=== PATIENT | male | born 1950 | race Caucasian/White ===

== ENCOUNTER 2025-10-26 15:46 | Inpatient (IN) | payer MEDICARE, SELFPAY ==
--- NOTE | ~2025-10-26 | XR_ITS ---
Examination: XR chest 1V portable Clinical History: Shortness of breath Comparison: 10/26/2025 Technique: Portable AP Findings: Heart size normal. Worsening scattered bilateral airspace disease. No acute bony abnormality. IMPRESSION: 1. Worsening scattered bilateral airspace disease, left lung worse. Reviewed, dictated and finalized at location R. TAKER
--- NOTE | ~2025-10-26 | CT_ITS ---
EXAMINATION: CT diagnostic chest wo con, 10/27/2025 14:00 PAPER BUNDLER HISTORY: ?pneumonia vs pulm edema COMPARISON: No comparisons available. TECHNIQUE: CT scan of the chest was performed without IV contrast. One or more of the following dose reduction techniques were used: automated exposure control, adjustment of the mA and/or kV according to patient size, use of iterative reconstruction technique. FINDINGS: No significant coronary calcification is present ([id number]) LUNGS: No tracheomalacia. No bronchiectasis. Large bilateral infiltrates. Micronodules in the upper lobes bilaterally in a tree-in-bud distribution with scattered infiltrates and areas of groundglass attenuation probably infectious. No significant emphysematous or pulmonary fibrotic changes. HEART AND PERICARDIUM: Within normal limits. AORTA: Normal caliber aorta. ADENOPATHY/MEDIASTINUM: None. LIMITED VIEWS OF THE ABDOMEN: Nonspecific patulous appearance of the esophagus with thickening of the esophagus may relate to underlying esophagitis. The visualized stomach appears distended. OSSEOUS STRUCTURES: No acute osseous abnormality.No suspicious lesions. OVERLYING SOFT TISSUES: Unremarkable. THYROID: The thyroid is unremarkable. IMPRESSION: Severe bilateral bronchopneumonia. Follow-up is recommended to assess resolution. Reviewed, dictated and finalized at location P. R BUNDLER IMPRESSION: Severe bilateral bronchopneumonia. Follow-up is recommended to assess resolutio n.
--- NOTE | ~2025-10-26 | XR_ITS ---
EXAM/PROCEDURE: XR barium swallow modified HISTORY: Aspiration Pneumonia COMPARISON: None available. TECHNIQUE: Modified barium swallow Fluoroscopy time: 3.2 minutes DAP: 2.05 Mcfadden per square centimeter IMPRESSION: Trace aspiration observed with thin barium. See speech therapist's note for complete evaluation. Reviewed, dictated and finalized at location A. HARNESS DESIGN ENGINEER IMPRESSION: Trace aspiration observed with thin barium. See speech therapist's note for com plete evaluation.
--- NOTE | ~2025-10-26 | US_ITS ---
EXAMINATION: US venous doppler [facility], 10/29/2025 11:53 CABLE SPLICER HISTORY: edema COMPARISON: None Technique: Mcfadden-scale and color Doppler images were attempted of the lower saphenofemoral junction, common femoral vein,superficial femoral vein, proximal deep femoral vein, proximal deep femoral vein, popliteal vein and posterior tibial veins. Findings: Deep Venous System:Normal flow, augmentation and compressibility. No echogenic thrombus identified. Superficial Venous SystemNo superficial thrombophlebitis. Soft tissues: Soft tissues are unremarkable. Impression: Negative for DVT. Reviewed, dictated and finalized at location P. E SPLICER Impression: Negative for DVT.
--- NOTE | ~2025-10-26 | XR_ITS ---
XR abdomen/kub 1V 11/09/2025 15:25 Indication: Constipation Procedure: KUB Comparison: No prior studies for comparison. Findings: There is a gastric tube present. There is a large amount of retained fecal material throughout the colon, consistent with fecal impaction. Generalized osteopenia. Moderate lumbar spondylosis with levoscoliosis. Impression: 1: Fecal impaction of the colon. Reviewed, dictated and finalized at location O. IRONER Impression: 1: Fecal impaction of the colon.
--- NOTE | ~2025-10-26 | XR_ITS ---
EXAM/PROCEDURE: XR barium swallow modified HISTORY: History dysphagia COMPARISON: None available. TECHNIQUE: Modified barium swallow Fossae time: 1.6 minutes DAP: 1.067 Mcfadden per square centimeter Number of images: 2 IMPRESSION: Aspiration observed. Significant residual persisted corresponding to area of the superior most portion of the esophagus. See speech therapist's note for complete evaluation. Reviewed, dictated and finalized at location A. RIBUTOR OF DIRECTORIES IMPRESSION: Aspiration observed. Significant residual persisted corresponding to area of th e superior most portion of the esophagus. See speech therapist's note for compl ete evaluation.
--- NOTE | ~2025-10-26 | CT_ITS ---
CTA CHEST CLINICAL HISTORY: COVID, R/O PE . COMPARISON: X-ray and CT 1 day prior TECHNIQUE: Helical CTA performed from thoracic inlet to upper abdomen IV contrast information not listed in PACS Coronal, sagittal reformats. Multiplanar MIPS CT images acquired with automatic exposure control for dose reduction DLP: 372 mGy-cm FINDINGS: Respiratory motion artifact. Pulmonary arteries: No PE identified. Thoracic Aorta: No dissection or aneurysm. Heart/pericardium: Coronary artery calcifications. RV/LV ratio: Normal. Lungs/Pleura: Severe dense bilateral lower lobe dependent airspace disease. Mild bilateral upper lobe airspace disease. Tracheobronchial tree: Patent. Nodes: No enlarged nodes. Bones: No acute bony abnormality. Soft tissues: Unremarkable. Visualized upper abdomen: Gastric distention. IMPRESSION: 1. No PE identified given respiratory motion artifact. 2. Large dense bilateral lower lobe airspace disease, consider aspiration. Reviewed, dictated and finalized at location R. GN TECHNICIAN
--- NOTE | ~2025-10-26 | XR_ITS ---
EXAMINATION: XR chest 2V DATE: 10/26/2025 16:45 INDICATION: Weakness. TECHNIQUE: Frontal and lateral views of the chest were obtained. COMPARISON: None. FINDINGS: Heart size is normal. Lungs are emphysematous. Questionable infiltrates of right lung base on the PA and lateral views. IMPRESSION: 1. Emphysematous lungs. 2. Suspect infiltrates at the right lung base, likely pneumonia. Please correlate with clinical and lab findings. Reviewed, dictated and finalized at location T. EGG PACKER IMPRESSION: 1. Emphysematous lungs. 2. Suspect infiltrates at the right lung base, likely pneumonia. Please correla te with clinical and lab findings.
--- NOTE | ~2025-10-26 | XR_ITS ---
EXAM/PROCEDURE: XR barium swallow modified HISTORY: Coughing with liquids COMPARISON: None available. TECHNIQUE: Modified barium swallow Fluoroscopy time: 3.2 minutes Number of images: 1 DAP: 2.058 Mcfadden per square centimeter IMPRESSION: No aspiration observed. See speech therapist's note for complete details. Reviewed, dictated and finalized at location A. ROOM SUPERVISOR
--- NOTE | ~2025-10-26 | XR_ITS ---
EXAM/PROCEDURE: XR fl Dobhoff insert/rad w img HISTORY: Failed modified barium swallow COMPARISON: None available. TECHNIQUE: Timeout performed in the usual sequences. Fluoroscopy time: 1.5 minutes DAP: 12.532 Mcfadden per square centimeter Number of images: 2 Procedure: Left nostril was used. The Dobbhoff catheter passed quickly through the nostril, and esophagus into the stomach. After several attempts, the catheter could not be extended into the duodenum and was left in the stomach with almost the entire catheter advanced. No immediate complication. IMPRESSION: Dobbhoff placement as above with no immediate complication. Reviewed, dictated and finalized at location A. BARREL LEADER
[2025-10-26 15:47] VITALS: BP 138/77; PULSE 99; RESP 22; TEMP 36.9; O2SAT 95
--- NOTE | 2025-10-26 15:58 | ECG_ITS ---
Test Date: 2025-10-26 16:54:18 Measurements Intervals [place] Rate: 91 P: 51 FL: 161 QRS: 19 QRSD: 97 T: 52 QT: 362 QTc: 446 Interpretive Statements SINUS RHYTHM POSSIBLE LEFT ATRIAL ENLARGEMENT INCOMPLETE RIGHT BUNDLE BRANCH BLOCK MINIMAL Q WAVES- HIGH LATERAL LEADS BASELINE ARTIFACT- I, III, AVR, AVL, AVF, V2 BORDERLINE ECG No previous ECG available for comparison Electronically Signed On 10-26-2025 18:56:57 BARGEMAN by Bharat Keys D.O.
[2025-10-26 16:30] LABS: Hematocrit 45.7 % (42.0-52.0); Hemoglobin 15.2 g/dL (14.0-18.0); Immature Granulocyte Percent A 0.6 % (0-0.5); Lymphocytes Absolute Auto 0.54 K/mm3 (0.9-3.2); Mean Corpuscular HGB Conc 33.3 g/dl (32-36); Mean Corpuscular Hemoglobin 33.5 pg (26-34); Mean Corpuscular Volume 100.7 fl (80-100); Nucleated Red Blood Cells Absolute Auto 0.000 K/mm3 (0.0-0.012); Nucleated Red Blood Cells Perc 0.0 % (0.0-0.2); Platelet Count Result 174 k/mm3 (150-375); Red Blood Count 4.54 M/mm3 (4.6-6.20); White Blood Count 10.4 K/mm3 (4.5-10.0)
[2025-10-26 17:07] LABS: Influenza A QL RT-PCR Negative (Negative); Influenza B QL RT-PCR Negative (Negative); RSV RNA, RT-PCR Negative (Negative); SARS-CoV-2 RNA PCR Positive (Negative)
[2025-10-26 17:17] VITALS: BP 107/63; PULSE 89; RESP 18; O2SAT 96
[2025-10-26 18:00] LABS: Add Urine Microscopic? YES; Appearance Urine Clear (Clear); Glucose Urine UA Negative (Negative); Leukocyte Esterase Ur Trace LEU/UL (Negative); Nitrate Urine Negative (Negative); Non Pathogenic Casts >20; Specific Grav Ur 1.024 (1.001-1.035)
[2025-10-26 18:26] VITALS: BP 106/64; PULSE 91; RESP 21; O2SAT 98
[2025-10-26 18:38] LABS: Alanine Aminotransferase 18 U/L (6-50); Albumin Level 4.4 g/dL (3.5-5.1); Alkaline Phosphatase 72 U/L (38-126); Anion Gap 9 mmol/L (4-12); Aspartate Amino Transferase 38 U/L (17-59); Bilirubin,Total 1.5 mg/dL (0.2-1.3); Blood Urea Nitrogen 51 mg/dL (9-20); Calcium 10.1 mg/dL (8.4-10.2); Carbon Dioxide 29 mmol/L (22-30); Chloride 100 mmol/L (98-107); Estimated CRCL calculation 42 ml/min; Estimated Glomerular Filt Rate 48; Glucose 121 mg/dL (65-110); Potassium 3.8 mmol/L (3.4-5.0); Sodium 138 mmol/L (137-145); Total Protein 8.0 g/dL (6.3-8.2)
[2025-10-26] MEDS: LACTATED RINGERS 1,000 ML 999 ML IV CONT (18:59)
[2025-10-26 19:01] VITALS: BP 110/61; PULSE 90; RESP 20; O2SAT 96
--- NOTE | 2025-10-26 20:46 | ED_ITS ---
HPI - General Adult General Chief complaint: Weakness Stated complaint: weakness Time Seen by Provider: 10/26/25 17:11 History of Present Illness HPI narrative: 75-year-old male presenting with concerns for new onset weakness since last night. Patient is accompanied by his who is the primary historian. Patient has a significant history of Parkinson's disease. Patient's states that the patient reported not feeling well last night and then he woke up and began vomiting early this morning. Denies diarrhea, abdominal pain, nausea presently, chest pain/shortness of breath, fevers/chills. Related Data Home Medications ?Medication ?Instructions ?Recorded ?Confirmed ?Last Taken ?Type atorvastatin 40 mg tablet mg 10/26/25 Unknown History carbidopa 25 mg-levodopa 100 mg tablet 10/26/25 Unkno wn History tablet carbidopa ER 25 mg-levodopa 100 mg tablet PO 10/26/25 Unknown History tablet,extended release metoprolol succinate 25 mg mg PO 10/26/25 Unknown His tory tablet,extended release 24 hr mirabegron 25 mg tablet,extended mg PO 10/26/25 Unkno wn History release 24 hr solifenacin 5 mg tablet mg PO 10/26/25 Unknown Hist ory Allergies Allergy/AdvReac Type Severity Reaction Status Date / Time shellfish derived Allergy Hives Verified 10/26/25 15:59 Review of Systems 2 Review of Systems: All systems reviewed & are unremarkable except as noted in HPI and below PMFSH Past Medical History Medical History HTN (hypertension) Urge incontinence Parkinson disease Exam 2 Narrative: GENERAL: No acute distress. Fatigued. HEAD: Normocephalic, atraumatic. EYES: PERRLA and EOMI. ENT: Nares clear, no rhinorrhea or epistaxis. Mucous membranes moist. Oropharynx without tonsillar hypertrophy exudate or other lesions. Bilateral TMs pearly engle non-bulging NECK: Supple. No adenopathy or masses. No carotid bruits or JVD CHEST: No respiratory distress. Mild lower right-sided crackles. HEART: Regular rate and rhythm. No murmur heard. Normal peripheral pulses. ABDOMEN: Soft, nontender, nondistended, normal active bowel sounds. EXTREMITIES: Normal range of motion. No edema. Slow movements. SKIN: Warm, dry, no rash. NEURO: No focal deficits. Alert and oriented x3. PSYCH: Flat affect. Course Vital Signs Vital signs: Vital Signs Temperature 98.4 F 10/26/25 15:47 Pulse Rate 99 10/26/25 15:47 Respiratory Rate 22 H 10/26/25 15:47 Blood Pressure 138/77 10/26/25 15:47 Pulse Oximetry 95 10/26/25 15:47 Oxygen Delivery Room Air 10/26/25 15:47 Temperature 99.6 F 10/27/25 00:10 Pulse Rate 82 10/27/25 00:10 Respiratory Rate 24 H 10/27/25 00:10 Blood Pressure 144/76 H 10/27/25 00:10 Pulse Oximetry 92 10/27/25 00:39 Oxygen Delivery Nasal Cannula 10/27/25 00:39 Oxygen Flow Rate 6 10/27/25 00:39 MDM MDM Narrative Medical decision making narrative: 75-year-old male presenting with concerns for new onset weakness since last night. Patient is accompanied by his who is the primary historian. Patient has a significant history of Parkinson's disease. Patient's states that the patient reported not feeling well last night and then he woke up and began vomiting early this morning. Denies diarrhea, abdominal pain, nausea presently, chest pain/shortness of breath, fevers/chills. Upon my initial assessment patient is sleeping and has stable vitals. Patient's states that at baseline he sleeps a lot of the day but he has not been able to do that today as he has been sick. Patient's states that at baseline he is able to get around somewhat on his own with a walker; however today he was not able to at all. Patient tested positive for COVID. Imaging demonstrates emphysematous lungs, suspect infiltrates at the right lung base, likely pneumonia. Recommends to correlate with clinical and lab findings. Exam does demonstrate right lower lung field crackles. CBC demonstrates very mild leukocytosis at 10.4. CMP and creatinine were elevated and GFR is decreased although I have no previous labs to compare to. His blood pressure was also somewhat soft. Administered 1L of fluids. Nursing staff attempted to ambulate the patient reporting that he was unable to do this as he was still too weak. Discussed with Dr. Henriquez with hospitalist patient presentation and workup. Agrees with admission at this time and recommends starting Remdesivir and dexamethasone. While awaiting transfer upstairs, patient began reporting intermittent nausea and also became febrile. Administered Tylenol and Zofran. Patient reported improvement in his nausea. Shortly prior to transfer upstairs, nursing staff had to suction vomit out of patient's oropharynx. Patient's oxygen dropped according to nursing to the high 80s. Patient was placed on 6L NC. I reevaluated the patient and heard clear lung sounds in all hill and the patient was not reporting respiratory concerns. Patient shortly went back above 95% and was transported upstairs. Differential Diagnosis Differential Diagnosis: Differential diagnosis for weakness being considered include electrolyte disturbances, anemia, infection, medication effect, TEACHING ASSISTANT disease, myopathies, endocrine dyscrasias, acute CT, hypoglycemia, rhabdomyolysis, sepsis, dehydration. Lab Data 10/26/25 16:21 10/26/25 18:00 Labs: Lab Results 10/26/25 10/26/25 10/26/25 Range/Units 16:21 17:30 18:00 WBC 10.4 H (4.5-10.0) K/mm3 RBC 4.54 L (4.6-6.20) M/mm3 Hgb 15.2 (14.0-18.0) g/dL Hct 45.7 (42.0-52.0) % MCV 100.7 H (80-100) fl MCH 33.5 (26-34) pg MCHC 33.3 (32-36) g/dl RDW 13.0 (11.5-14.5) % Plt Count 174 (150-375) k/mm3 MPV 10.5 H (7.4-10.4) fl Immature Gran % (Auto) 0.6 H (0-0.5) % Neut % (Auto) 89.2 H (45.5-73.1) % Lymph % (Auto) 5.2 L (18.3-44.2) % [place] % (Auto) 3.9 (2.6-8.5) % Eos % (Auto) 0.4 (0-4.4) % Baso % (Auto) 0.7 (0.2-1.2) % Lymph # (Auto) 0.54 L (0.9-3.2) K/mm3 [place] # (Auto) 0.4 (0.1-0.6) K/mm3 Eos # (Auto) 0.0 (0-0.3) K/mm3 Baso # (Auto) 0.1 (0.0-0.1) K/mm3 Abs Immat Gran (auto) 0.06 H (0.00-0.031) K/mm3 Absolute Neuts (auto) 9.3 H (1.3-6.7) K/mm3 Absolute Nucleated RBC 0.000 (0.0-0.012) K/mm3 Nucleated RBC % 0.0 (0.0-0.2) % Sodium 138 (137-145) mmol/L Potassium 3.8 (3.4-5.0) mmol/L Chloride 100 (98-107) mmol/L Carbon Dioxide 29 (22-30) mmol/L Anion Gap 9 (4-12) mmol/L BUN 51 H (9-20) mg/dL Creatinine 1.43 H (0.7-1.3) mg/dL Estim Creat Clear Calc 42 ml/min Estimated GFR 48 L (59 - ) Glucose 121 H (65-110) mg/dL Calcium 10.1 (8.4-10.2) mg/dL Total Bilirubin 1.5 H (0.2-1.3) mg/dL AST 38 (17-59) U/L ALT 18 (6-50) U/L Alkaline Phosphatase 72 (38-126) U/L Total Protein 8.0 (6.3-8.2) g/dL Albumin 4.4 (3.5-5.1) g/dL Urine Color Dark yellow (Yellow) Urine Appearance Clear (Clear) Urine pH 5.0 (5.0-9.0) Ur Specific [place] 1.024 (1.001-1.035) Urine Protein 1+ H (Negative) mg/dL Urine Glucose (UA) Negative (Negative) mg/dL Urine Ketones 1+ H (Negative) mg/dL Ur Blood (Man) Negative (Negative) Urine Nitrate Negative (Negative) Urine Bilirubin 1+ H (Negative) Urine Urobilinogen 1.0 (<2.0) mg/dL Leukocyte Esterase Rfl Trace H (Negative) VEE/UL Urine RBC 0-2 (0-2) /hpf Urine WBC 0-5 (0-3) /hpf Ur Squamous Epith Cells None seen (Few) /hpf Urine Bacteria None seen /hpf Urine Casts >20 Hyaline Casts Present (None) /lpf U Random Total Protein 15 mg/dL Ur Random Sodium 19 meq/L Ur Random Urea 602 MG/DL Urine Creatinine 322.4 mg/dL Protein/Creat Ratio 2 0.05 (0-0.20) mg/mg Influenza A (RT-PCR) Negative (Negative) Influenza B (RT-PCR) Negative (Negative) RSV (RT-PCR) Negative (Negative) SARS-CoV-2 RNA (RT-PCR) Positive A (Negative) Imaging Data Attestation: I personally reviewed and interpreted this imaging study as follows: Radiologist's impression: ITS Impressions Chest X-Ray 10/26/25 16:46 IMPRESSION: 1. Emphysematous lungs. 2. Suspect infiltrates at the right lung base, likely pneumonia. Please correlate with clinical and lab findings. ECG Data EKG #1: ECG completion date: 10/26/25 ECG completion time: 16:54 normal rate, sinus rhythm and no acute changes Discharge Plan Discharge Clinical Impression: COVID, Pneumonia, Weakness, Nausea & vomiting Parkinson disease Qualifiers: Dyskinesia presence: unspecified whether dyskinesia Fluctuating manifestations: unspecified whether manifestations fluctuate Qualified Code(s): G20.A1 - Parkinson's disease without dyskinesia, without mention of fluctuations Patient Disposition: Still a Patient Condition: Guarded Prognosis
[2025-10-26] MEDS: ONDANSETRON INJ 4 MG/2 ML VIAL IV PUSH (21:09)
[2025-10-26] MEDS: ACETAMINOPHEN 500 MG TABLET 1000 MG PO (21:20)
[2025-10-26 21:21] VITALS: BP 118/63; PULSE 90; RESP 21; TEMP 38.2; O2SAT 100
[2025-10-26] MEDS: dexAMETHasone SOD PHOS INJ 10 MG/ML 1 ML VIAL 6 MG IV PUSH (22:25)
[2025-10-26] MEDS: SODIUM CHLORIDE 0.9% IV 1,000 ML 999 ML IV CONT (22:25)
[2025-10-26] MEDS: REMDESIVIR 200 MG/NS 250 ML 200 MG/250 ML BAG 250 MG IVPB (22:28)
[2025-10-26 22:31] VITALS: BP 132/76; PULSE 88; RESP 21; TEMP 37.2
--- NOTE | 2025-10-26 23:00 | PM.IMHP2 ---
H&P: HPI History of Present Illness Date/Time: 10/26/25 23:00 Chief Complaint: Weakness Narrative: 75 y/o M with PMH of Parkinson's, urge incontinence, and hypertension presents here with generalized weakness. The patient presents here from home via EMS on 10/26 for further evaluation of generalized weakness. HPI obtained through patient report and patient's . They report the generalized weakness started yesterday on 10/25. Now accompanied by nausea, vomiting, malodorous urine, and general malaise. He denies abdominal pain, diarrhea, chest pain, shortness of breath, fever, chills. Per he has had a chronic cough for the past 2-3 weeks that is been intermittently productive. However he was cleared prior to cataract surgery last week. No previous history of CKD or renal dysfunction. Initial VS at presentation: 98.4? F, HR 99, R 22, 138/77, and 95% on RA. ED workup showed: WBC 10.4, hemoglobin 15.2, creatinine 1.43 and GFR 48, glucose 121, UA showed trace leuk esterase otherwise unremarkable for infection. Patient tested positive for COVID on 10/26. CXR showed emphysematous lungs, suspect infiltrate at the right lung base likely pneumonia. Review of Systems Review of Systems: All systems reviewed & are unremarkable except as noted in HPI and below PMFSH Past Medical History Medical History HTN (hypertension) Urge incontinence Parkinson disease Meds Home Medications and Allergies Home Medications ?Medication ?Instructions ?Recorded ?Confirmed ?Type atorvastatin 40 mg tablet mg 10/26/25 History carbidopa 25 mg-levodopa 100 mg tablet 10/26/25 History tablet carbidopa ER 25 mg-levodopa 100 mg tablet PO 10/26/25 History tablet,extended release metoprolol succinate 25 mg mg PO 10/26/25 History tablet,extended release 24 hr mirabegron 25 mg tablet,extended mg PO 10/26/25 History release 24 hr solifenacin 5 mg tablet mg PO 10/26/25 History Allergies Allergy/AdvReac Type Severity Reaction Status Date / Time shellfish derived Allergy Hives Verified 10/26/25 15:59 Vital Signs Vital Signs - 24 hr 10/26/25 15:47 10/26/25 17:17 10/26/25 18:26 Temperature 98.4 F Pulse Rate 99 89 91 Respiratory Rate 22 H 18 21 H Blood Pressure 138/77 107/63 106/64 Pulse Oximetry 95 96 98 Oxygen Delivery Room Air 10/26/25 19:01 10/26/25 21:21 10/26/25 22:31 Temperature 100.7 F H 99 F Pulse Rate 90 90 88 Respiratory Rate 20 21 H 21 H Blood Pressure 110/61 118/63 132/76 Pulse Oximetry 96 100 Oxygen Delivery Exam Const: General: comfortable and no acute distress Other: , male, elderly, ill-appearing HENMT: Face/Nose/Sinus: Normal nares present Mouth: Yes dry mucous membranes Eyes: General: appearance normal, both eyes and all related structures Sclera: sclerae normal Pupils: Equal, round and reactive pupils present EOM: EOMs intact bilaterally Resp: Effort & Inspection: normal respiratory effort Other: Bibasilar crackles, left worse than right. Cardio: Rate: regular rate Rhythm: regular rhythm Other: S1-S2 present without murmur, rub, ectopy GI: Other: Abdomen soft, nondistended, nontender. Normoactive bowel sounds in all quadrants. Skin: General skin exam: normal color and no rashes or lesions noted Wounds: no wounds Neuro: Other: Generalized weakness, A&O x4. Normal speech and sensation. EOM intact. Extrem: General: normal to inspection Psych: Mental Status: mental status grossly normal Other: Masklike affect. Good insight and judgment, pleasant. Results Labs Labs: Short CBC 10/26/25 Range/Units 16:21 WBC 10.4 H (4.5-10.0) K/mm3 Hgb 15.2 (14.0-18.0) g/dL Hct 45.7 (42.0-52.0) % Plt Count 174 (150-375) k/mm3 [facility] 10/26/25 18:00 Sodium 138 Potassium 3.8 Chloride 100 Carbon Dioxide 29 BUN 51 H Creatinine 1.43 H Glucose 121 H Calcium 10.1 Liver Function 10/26/25 Range/Units 18:00 Total Bilirubin 1.5 H (0.2-1.3) mg/dL AST 38 (17-59) U/L ALT 18 (6-50) U/L Alkaline Phosphatase 72 (38-126) U/L Albumin 4.4 (3.5-5.1) g/dL Urine 10/26/25 Range/Units 17:30 Urine Color Dark yellow (Yellow) Urine Appearance Clear (Clear) Urine pH 5.0 (5.0-9.0) Ur Specific [place] 1.024 (1.001-1.035) Urine Protein 1+ H (Negative) mg/dL Urine Glucose (UA) Negative (Negative) mg/dL Quality VTE Prophylaxis VTE prophylaxis: pharmacologic ordered Assessment and Plan Assessment and plan (1) COVID: Code(s): U07.1 - COVID-19 Status: Acute Assessment and Plan: - symptom onset: 10/25 - tested positive for COVID on: 10/26 - CXR: 1. Emphysematous lungs. 2. Suspect infiltrates at the right lung base, likely pneumonia. Please correlate with clinical and lab findings. - Remdesivir 200 mg IVPB x1 then 100 mg x4 for 5 total doses. - high risk due to Parkinson's and presence of infiltrates, started on dexamethasone. Patient now also borderline hypoxic at 90% on room air. Placed on supplemental O2. Wean as tolerated, however maintain O2 sat greater than 92%. - Lovenox SQ - supportive care: DuoNeb p.r.n., Tylenol p.r.n., Mucinex, Tessalon Perles, IV fluids - monitor VS/O2 - monitor daily labs - PT/OT evaluation for decreased mobility/Lyly generalized weakness (2) Pneumonia: Qualifiers: Pneumonia type: due to COVID-19 virus Qualified Code(s): U07.1 - COVID-19; J12.82 - Pneumonia due to coronavirus disease 2019 Code(s): J18.9 - Pneumonia, unspecified organism Status: Acute Assessment and Plan: CXR concerning for new infiltrate to the right lung, likely pneumonia. Tested positive for COVID on 10/26, symptom onset 10/25. Did not meet SIRS criteria. - started on ceftriaxone and azithromycin on 10/26 - supportive care: DuoNebs, Tylenol, Mucinex, Tessalon Perles - encourage IS (3) MATT (acute kidney injury): Code(s): N17.9 - Acute kidney failure, unspecified Status: Acute Assessment and Plan: Creatinine 1.43, BUN 51, GFR 48 upon admission on 10/26. No previous history of renal disease or CKD. - renal ultrasound - add CK, urine sodium, protein/creatinine, urea - UA showed indications of infection - monitor I&Os - IV fluids: 2L bolus -> 75 mL/hr x1L (4) Elevated glucose: Code(s): R73.09 - Other abnormal glucose Status: Acute Assessment and Plan: Elevated glucose upon admission on 10/26, blood sugar 121. No A1c on file. - check A1c (5) Parkinson disease: Qualifiers: Dyskinesia presence: unspecified whether dyskinesia Fluctuating manifestations: unspecified whether manifestations fluctuate Qualified Code(s): G20.A1 - Parkinson's disease without dyskinesia, without mention of fluctuations Code(s): G20.A1 - Parkinson's disease without dyskinesia, without mention of fluctuations Status: Chronic Assessment and Plan: History of Parkinson's disease. - continue carbidopa levodopa (6) HTN (hypertension): Qualifiers: Hypertension type: primary hypertension Qualified Code(s): I10 - Essential (primary) hypertension Code(s): I10 - Essential (primary) hypertension Status: Chronic Assessment and Plan: - chronic, currently 132/76, stable. - continue home medications - monitor Plan Diet: heart healthy GI Prophylaxis: N/a DVT Prophylaxis: Lovenox IV fluids: 2L -> 75 mL/hr x1L Lines/Tubes: pIV Code Status: full code Prior Studies I have reviewed the following patient records and this information was taken into consideration when formulating the assessment and plan.: previous labs, previous ER visits, previous hospitalizations and previous clinic visits Time Spent with Patient Time with patient: less than 45 minutes Hospitalist MIPS Advance Care Plan I have confirmed that the patient's Advanced Care Plan is present, code status is documented, or surrogate decision maker is listed in patient medical record.: Yes Medication Reconciliation I have utilized all available resources to obtain, update and review the patients current medications (includes all prescriptions, OTC, herbals, cannabis, and nutritional supplements).: Yes
[2025-10-26] MEDS: cefTRIAXone 1 GM in SODIUM CHLORIDE 0.9% IV 50 ML 100 ML IVPB (23:58)
[2025-10-27] VITALS (21 sets, daily range): BP systolic 137–160; BP diastolic 62–87; PULSE 82–116; RESP 16–34; TEMP 36.9–37.7; O2SAT 87–100; BMI 22.8; BMI 24.3
[2025-10-27 00:03] LABS: Urea Random Urine 602 MG/DL
[2025-10-27 00:04] LABS: Total Protein Urine Random 15 mg/dL; Ur Ttl Prot Creatinine Ratio 0.05 mg/mg (0-0.20)
[2025-10-27] MEDS: LACTATED RINGERS 1,000 ML 75 ML IV CONT (00:07)
--- NOTE | 2025-10-27 00:14 | WPCEDHO ---
ED Hand Off Checklist All vitals saved: Yes IV Site documented: Yes All med administrations documented: Yes Triage Note Triage Note Pt to ED via EMS from home c/o 10/26/25 15:47 weakness since yesterday. Ems endorses N/V. Reports urine has odor. Hx of Parkinsons. Pt a&ox4. Allergies shellfish derived Allergy (Verified 10/26/25 15:59) Hives Current Diagnoses Parkinson's disease without dyskinesia, without mention of fluctuations (10/26/25) Essential (primary) hypertension (10/26/25) Pneumonia due to coronavirus disease 2018 (10/26/25) Acute kidney failure, unspecified (10/26/25) Other abnormal glucose (10/26/25) COVID-19 (10/26/25) Active Medications including assessments/comments Lactated Ringer's (Lr - Lactated Ringers Iv) 1,000 mls @ 75 mls/hr IV CONT .[id number] STA Stop: 10/27/25 12:30 Last Admin: 10/27/25 00:07 Dose: 75 mls/hr Documented By: JOE Infusion/Titration Document 10/27/25 00:07 JOE (Rec: 10/27/25 00:07 JOE [id number]) Intake IV Site Peripheral Access Right Arm, Upper Container Volume 1,000 Waste Amount 0 Dosing Infusion Rate 75 Cumulative Dose Not Applicable Increase/Decrease Started Elapsed Time Elapsed Time ( 0m minutes) Administered/Completed Medications Discontinued Medications Acetaminophen (Acetaminophen 500 Mg Tablet) 1,000 mg PO ONCE STA Stop: 10/26/25 21:14 Last Admin: 10/26/25 21:20 Dose: 1,000 mg Documented By: JOE Dexamethasone Sodium Phosphate (Dexamethasone Sod Phos Inj 10 Mg/Ml 1 Ml Vial) 6 mg IV PUSH ONCE STA Stop: 10/26/25 21:42 Last Admin: 10/26/25 22:25 Dose: 6 mg Documented By: ZULY Lactated Ringer's (Lr - Lactated Ringers Iv) 1,000 mls @ 999 mls/hr IV CONT .Q1H1M STA Stop: 10/26/25 19:42 Last Infusion: 10/26/25 20:44 Dose: Infused Documented By: Admin: 10/26/25 18:59 Dose: 999 mls/hr Documented By: MLI Remdesivir () 200 mg in 250 mls @ 250 mls/hr IVPB ONCE ONE Stop: 10/26/25 22:24 Last Infusion: 10/27/25 00:13 Dose: Infused Documented By: Admin: 10/26/25 22:28 Dose: 250 mls/hr Documented By: ZULY Sodium Chloride (Normal Saline Iv) 1,000 mls @ 999 mls/hr IV CONT .Q1H1M STA Stop: 10/26/25 22:27 Last Infusion: 10/27/25 00:13 Dose: Infused Documented By: Admin: 10/26/25 22:25 Dose: 999 mls/hr Documented By: ZULY Ceftriaxone Sodium 1 gm/ (Sodium Chloride) 50 mls @ 100 mls/hr IVPB ONCE ONE Stop: 10/26/25 23:59 Last Admin: 10/26/25 23:58 Dose: 100 mls/hr Documented By: JOE Ondansetron HCl (Ondansetron Inj 4 Mg/2 Ml Vial) 4 mg IV PUSH ONCE STA Stop: 10/26/25 19:50 Last Admin: 10/26/25 21:09 Dose: 4 mg Documented By: JOE Interventions/Assessments IV / Saline Lock, Insert Start: 10/26/25 15:35 Freq: Status: Active Protocol: Document 10/26/25 23:58 JOE (Rec: 10/26/25 23:59 DJW [id number]) IV Assessment Peripheral Access Right Arm, Upper IV Catheter Access Initiated IV Insertion Date 10/26/25 IV Insertion Time 23:59 Catheter Gauge 18 IV Insertion 1 Attempts IV Site Assessment WNL IV Care and WNL Maintenance PA: Cardiovascular Assessment Start: 10/26/25 15:35 Freq: Status: Active Protocol: Document 10/26/25 16:23 MLI (Rec: 10/26/25 16:24 MLI [id number]) Cardiovascular Assessment Cardiovascular Nausea,Vomiting Symptoms Skin Description Normal Color Jugular Vein None Distention Capillary Refill Bilateral Upper Extremity Capillary Refill Normal/Less than 2 Seconds PA: Neurological Assessment Start: 10/26/25 15:35 Freq: Status: Active Protocol: Document 10/26/25 16:23 MLI (Rec: 10/26/25 16:24 MLI [id number]) Neurological Assessment Level of Alert,Awake,Drowsy Consciousness Arousable to Verbal Orientation Oriented to Person,Oriented to Place,Oriented to Time Neurological Weakness, General Symptoms Behavior Appropriate,Cooperative Patient Able to Comprehend Comprehension Memory Description Intact Last Vital Signs Temperature 99.6 F 10/27/25 00:10 Pulse Rate 82 10/27/25 00:10 Respiratory Rate 24 H 10/27/25 00:10 Pulse Oximetry 95 10/27/25 00:10 Blood Pressure 144/76 H 10/27/25 00:10 Blood Pressure Mean 98 10/27/25 00:10 Blood Pressure Position Supine 10/27/25 00:10 Oxygen Delivery Room Air 10/26/25 15:47 Weight 74.8 kg 10/26/25 15:47 Last Result - Abnormals Only WBC 10.4 K/mm3 (4.5-10.0) H 10/26/25 16:21 RBC 4.54 M/mm3 (4.6-6.20) L 10/26/25 16:21 MCV 100.7 fl (80-100) H 10/26/25 16:21 MPV 10.5 fl (7.4-10.4) H 10/26/25 16:21 Immature Gran % (Auto) 0.6 % (0-0.5) H 10/26/25 16:21 Neut % (Auto) 89.2 % (45.5-73.1) H 10/26/25 16:21 Lymph % (Auto) 5.2 % (18.3-44.2) L 10/26/25 16:21 Lymph # (Auto) 0.54 K/mm3 (0.9-3.2) L 10/26/25 16:21 Abs Immat Gran (auto) 0.06 K/mm3 (0.00-0.031) H 10/26/25 16:21 Absolute Neuts (auto) 9.3 K/mm3 (1.3-6.7) H 10/26/25 16:21 BUN 51 mg/dL (9-20) H 10/26/25 18:00 Creatinine 1.43 mg/dL (0.7-1.3) H 10/26/25 18:00 Estimated GFR 48 (59-) L 10/26/25 18:00 Glucose 121 mg/dL (65-110) H 10/26/25 18:00 Total Bilirubin 1.5 mg/dL (0.2-1.3) H 10/26/25 18:00 Urine Protein 1+ mg/dL (Negative) H 10/26/25 17:30 Urine Ketones 1+ mg/dL (Negative) H 10/26/25 17:30 Urine Bilirubin 1+ (Negative) H 10/26/25 17:30 Leukocyte Esterase Rfl Trace VEE/UL (Negative) H 10/26/25 17:30 SARS-CoV-2 RNA (RT-PCR) Positive (Negative) A 10/26/25 16:21 Most Recent Suicide Severity Rating Suicide Severity Rating NO RISK INDICATED 10/26/25 15:47
[2025-10-27 00:24] LABS: Creatine Kinase 44 U/L (55-170)
[2025-10-27] MEDS: AZITHROMYCIN IV 500 MG in SODIUM CHLORIDE 0.9% IV 250 ML IVPB (00:31)
--- NOTE | 2025-10-27 01:05 | ADMGEN ---
This patient, Jone Nguyen, was admitted to [facility] Surg Room 313-01. Patient/family oriented to hospital policies and general routines including ID bracelet, bed and alarms, visiting hours, pain management, procedures, bathroom and other care routines, personal items, smoking policy, room service/diet, and visiting hours. Information on how to activate the Rapid Response Team has been discussed. Patient/Family are encouraged to report perceived risks to care and to ask questions if they do not understand what they are told or what they should do.
--- NOTE | 2025-10-27 03:30 | PC.NURSE ---
Transfer orders entered from 3 Med/Surg to IMU with Dr. Henriquez at side informing me of all orders that she wanted placed along with tranfer order.
--- NOTE | 2025-10-27 03:36 | PC.NURSE ---
Patient with increase oxygen demand, pt was received from ER on oxygen at 5 LPM via nasal cannula. oxygen saturation was at 88%. patientw as started on hi flow but saturation remained at 86-88%. Informed RT Pia, venturi mask was started since pt is a mouth breather, saturation just went up to 89%. Informed Dr. Kam regarding the change in condition, Pia Rt recommended pt to be on Heated hiflow. Dr Blount timmy to do her rounds, ordered for CXR and pt to be transferred to IMu. IVF stoipped as per Dr. Kam's order.
[2025-10-27 05:40] LABS: Alveolar/Arterial O2 Gradient 364.3 mmHg; Fractional Inspired Oxygen 65 %; HCO3 ABG 27.6 mEq/l (22.0-26.0); Oxygen Content ABG 19.5 %vol (16.0-22.0); Oxygen Saturation ABG 90.8 % (95.0-100.0); PCO2 ABG 39.6 mmHg (35.0-45.0); PO2 ABG 56.1 mmHg (80.0-100.0); PO2 FiO2 Ratio Arterial Blood 0.86 %
[2025-10-27 05:43] LABS: Liters per Minute 50.0 LPM; Site Drawn RIGHT BRACHIAL
--- NOTE | 2025-10-27 05:44 | PC.NURSE ---
Patient arrived via bed with RN x2 and spouse at bedside @0440 to room 204. Patient complaining of feeling warm, staff removed all blankets and gown, placed a sheet over patient. Patient able to verbalize person, place and time however patient continues to pull on AirVo tubing and telemetry leads. MD notified, ABG ordered. Reviewed aspiration risks with patient and spouse. HOB elevated above 30 degrees.
[2025-10-27 07:19] LABS: Hemoglobin A1C 5.5 % (<5.7)
[2025-10-27 08:04] LABS: Hematocrit 43.2 % (42.0-52.0); Hemoglobin 14.6 g/dL (14.0-18.0); Mean Corpuscular HGB Conc 33.8 g/dl (32-36); Mean Corpuscular Hemoglobin 33.0 pg (26-34); Mean Corpuscular Volume 97.7 fl (80-100); Platelet Count Result 157 k/mm3 (150-375); Red Blood Count 4.42 M/mm3 (4.6-6.20); White Blood Count 4.5 K/mm3 (4.5-10.0)
[2025-10-27 08:32] LABS: Alanine Aminotransferase 19 U/L (6-50); Albumin Level 3.8 g/dL (3.5-5.1); Alkaline Phosphatase 64 U/L (38-126); Anion Gap 7 mmol/L (4-12); Aspartate Amino Transferase 35 U/L (17-59); Bilirubin,Total 1.3 mg/dL (0.2-1.3); Blood Urea Nitrogen 53 mg/dL (9-20); Calcium 9.2 mg/dL (8.4-10.2); Carbon Dioxide 30 mmol/L (22-30); Chloride 100 mmol/L (98-107); Estimated CRCL calculation 59 ml/min; Estimated Glomerular Filt Rate > 60; Glucose 114 mg/dL (65-110); Potassium 3.3 mmol/L (3.4-5.0); Sodium 137 mmol/L (137-145); Total Protein 7.2 g/dL (6.3-8.2)
[2025-10-27] MEDS: PANTOPRAZOLE SODIUM IV 40 MG VIAL IV PUSH (09:00)
[2025-10-27] MEDS: SODIUM CHLORIDE 0.9% IV 1,000 ML 75 ML IV CONT (10:00)
[2025-10-27 10:02] LABS: Band Neutrophils Percent 22 % (0-6); Basophils Absolute Manual 0.00 K/mm3 (0.0-0.1); Basophils Percent Manual 0 % (0-1); Eosinophils Absolute Manual 0.09 K/mm3 (0.02-0.50); Eosinophils Percent Manual 2 % (0-4); Lymphocytes Absolute Manual 0.72 K/mm3 (1.1-4.5); Lymphocytes Percent Manual 16 % (18-44); Monocytes Absolute Manual 0.22 K/mm3 (0.1-0.90); Monocytes Percent Manual 5 % (3-9); Neutrophils Absolute Manual 3.15 K/mm3 (1.3-6.7); Neutrophils Percent Manual 48 % (46-73); Total Cells Counted 100
[2025-10-27 10:03] LABS: Metamyelocytes Percent 6 %; Myelocytes Percent 1 %; Toxic Granulation Present
[2025-10-27 10:05] LABS: Schistocytes None Seen
--- NOTE | 2025-10-27 12:33 | PCSTNOTE ---
Please refer to the Bedside Swallow Evaluation in the EMR. Please note, silent aspiration cannot be ruled out at bedside.
[2025-10-27] MEDS: levoFLOXacin 750 MG/D5W 150 ML 750 MG/150 ML BAG 100 MG IVPB (13:00)
--- NOTE | 2025-10-27 13:42 | P.PNIM_ITS ---
Assessment and Plan Assessment and Plan (1) COVID: Code(s): U07.1 - COVID-19 Status: Acute Assessment and Plan: - symptom onset: 10/25 - tested positive for COVID on: 10/26 - CXR Showed RIght lung infiltrates - repeat CXR this morning showed worsening bilateral opacities, CT chest ordered - Monitor cultures, MRSa ordered Started on Levaquin, Flagyl and Vanc, continue Remdesivir and Dexamethasone CT chest stat (2) Pneumonia: Qualifiers: Pneumonia type: due to COVID-19 virus Qualified Code(s): U07.1 - COVID- 19; J12.82 - Pneumonia due to coronavirus disease 2019 Code(s): J18.9 - Pneumonia, unspecified organism Status: Acute Assessment and Plan: CXR showed worsening bilateral infiltrates continue above care (3) MATT (acute kidney injury): Code(s): N17.9 - Acute kidney failure, unspecified Status: Acute Assessment and Plan: Creatinine 1.43, BUN 51, GFR 48 upon admission on 10/26. No previous history of renal disease or CKD. - renal ultrasound resolved. Cr 1.05 from 1.43 monitor (4) Elevated glucose: Code(s): R73.09 - Other abnormal glucose Status: Acute Assessment and Plan: Elevated glucose upon admission on 10/26, blood sugar 121. No A1c on file. A1c 5.5, no diabetes (5) Parkinson disease: Qualifiers: Dyskinesia presence: unspecified whether dyskinesia Fluctuating manifestations: unspecified whether manifestations fluctuate Qualified Code(s): G20.A1 - Parkinson's disease without dyskinesia, without mention of fluctuations Code(s): G20.A1 - Parkinson's disease without dyskinesia, without mention of fluctuations Status: Chronic Assessment and Plan: History of Parkinson's disease. - continue carbidopa levodopa (6) HTN (hypertension): Qualifiers: Hypertension type: primary hypertension Qualified Code(s): I10 - Essential (primary) hypertension Code(s): I10 - Essential (primary) hypertension Status: Chronic Assessment and Plan: - chronic, currently 132/76, stable. - continue home medications - monitor Plan Diet: heart healthy GI Prophylaxis: N/a DVT Prophylaxis: Lovenox IV fluids: 2L -> 75 mL/hr x1L Lines/Tubes: pIV Code Status: full code Subjective Date/time seen: 10/27/25 13:42 Interval history: Comfortable at bedside on Airvo Ct chest pending Review of Systems Review of Systems: All systems reviewed & are unremarkable except as noted in HPI and below Exam Const: General: comfortable and no acute distress Other: , male, elderly, ill-appearing HENMT: Face/Nose/Sinus: Normal nares present Mouth: Yes dry mucous membranes Eyes: General: appearance normal, both eyes and all related structures Sclera: sclerae normal Pupils: Equal, round and reactive pupils present EOM: EOMs intact bilaterally Resp: Effort & Inspection: normal respiratory effort Other: Bibasilar crackles, left worse than right. Cardio: Rate: regular rate Rhythm: regular rhythm Other: S1-S2 present without murmur, rub, ectopy GI: Other: Abdomen soft, nondistended, nontender. Normoactive bowel sounds in all quadrants. Skin: General skin exam: normal color and no rashes or lesions noted Wounds: no wounds Neuro: Cranial nerves: Yes Equal, round and reactive pupils present Other: Generalized weakness, A&O x4. Normal speech and sensation. EOM intact. Extrem: General: normal to inspection Psych: Mental Status: mental status grossly normal Other: Masklike affect. Good insight and judgment, pleasant. Objective Data Vital Signs Vital Signs: Vital Signs - 24 hr 10/26/25 15:47 10/26/25 17:17 10/26/25 18:26 Temperature 98.4 F Pulse Rate 99 89 91 Respiratory Rate 22 H 18 21 H Blood Pressure 138/77 107/63 106/64 Pulse Oximetry 95 96 98 Oxygen Delivery Room Air Oxygen Flow Rate Fraction of Inspired Oxygen 10/26/25 19:01 10/26/25 21:21 10/26/25 22:31 Temperature 100.7 F H 99 F Pulse Rate 90 90 88 Respiratory Rate 20 21 H 21 H Blood Pressure 110/61 118/63 132/76 Pulse Oximetry 96 100 Oxygen Delivery Oxygen Flow Rate Fraction of Inspired Oxygen 10/27/25 00:10 10/27/25 00:15 10/27/25 00:15 Temperature 99.6 F Pulse Rate 82 Respiratory Rate 24 H Blood Pressure 144/76 H Pulse Oximetry 95 89 L 95 Oxygen Delivery Room Air Nasal Cannula Oxygen Flow Rate 2 Fraction of Inspired Oxygen 10/27/25 00:37 10/27/25 00:38 10/27/25 00:38 Temperature Pulse Rate Respiratory Rate Blood Pressure Pulse Oximetry 87 L 87 L 88 L Oxygen Delivery Nasal Cannula Nasal Cannula Nasal Cannula Oxygen Flow Rate 2 3 4 Fraction of Inspired Oxygen 10/27/25 00:38 10/27/25 00:39 10/27/25 01:20 Temperature 99.8 F H Pulse Rate 84 Respiratory Rate 16 Blood Pressure 144/87 H Pulse Oximetry 89 L 92 100 Oxygen Delivery Nasal Cannula Nasal Cannula Oxygen Flow Rate 5 6 Fraction of Inspired Oxygen 10/27/25 01:35 10/27/25 02:30 10/27/25 02:50 Temperature 98.5 F Pulse Rate 95 Respiratory Rate 18 26 H 28 H Blood Pressure 138/62 Pulse Oximetry 90 88 L 89 L Oxygen Delivery High Flow Therapy with Na Oxygen Flow Rate 12 Fraction of Inspired Oxygen 10/27/25 02:50 10/27/25 03:03 10/27/25 05:00 Temperature Pulse Rate Respiratory Rate 28 H Blood Pressure Pulse Oximetry 89 L 92 92 Oxygen Delivery Venturi Mask High Flow Therapy with Na High Flow Therapy with Na Oxygen Flow Rate 15 50 50 Fraction of Inspired Oxygen 50 65 65 10/27/25 05:44 10/27/25 05:56 10/27/25 07:57 Temperature 98.4 F Pulse Rate 113 H Respiratory Rate 24 H Blood Pressure 160/81 H Pulse Oximetry 90 92 96 Oxygen Delivery High Flow Therapy with Na High Flow Therapy with Na Oxygen Flow Rate 50 50 Fraction of Inspired Oxygen 65 70 10/27/25 11:49 Temperature 99.1 F Pulse Rate 111 H Respiratory Rate 24 H Blood Pressure 139/80 Pulse Oximetry 98 Oxygen Delivery Oxygen Flow Rate Fraction of Inspired Oxygen Intake/Output Intake/Output: Intake & Output 10/24/25 10/25/25 10/26/25 10/27/25 23:59 23:59 23:59 23:59 Intake Total 1000 2550 Output Total 100 0 Balance 900 2550 Meds/Results Medications: Active Medications Generic Name Dose Route Start Last Admin Trade Name Freq PRN Reason Stop Dose Admin Acetaminophen 650 mg 10/26/25 23:08 Acetaminophen 325 Mg Tablet PO Q6H PRN Mild Pain (1-3) or Fever Acetaminophen 650 mg 10/27/25 10:34 Acetaminophen 650 Mg Suppository RECTAL Q6H PRN Mild Pain (1-3) or Fever Albuterol/Ipratropium 3 ml 10/26/25 23:08 Ipratropium 0.5 Mg/Albuterol Sulfate 2.5 Mg (Base) Ampul.Neb 3 Ml INHALATION Q6HRT PRN Shortness Of Breath Or Wheezing Dexamethasone Sodium Phosphate 6 mg 10/27/25 21:00 Dexamethasone Sod Phos Inj 10 Mg/Ml 1 Ml Vial IV PUSH 11/04/25 21:01 HS MARTINEZ Remdesivir 100 mg in 250 mls @ 250 mls/hr 10/27/25 22:00 IVPB 10/30/25 22:59 Q24H MARTINEZ Sodium Chloride 1,000 mls @ 75 mls/hr 10/27/25 10:20 10/27/25 10:00 Normal Saline Iv IV CONT 75 mls/hr .[id number] MARTINEZ Administration Levofloxacin/Dextrose 750 mg in 150 mls @ 100 mls/hr 10/27/25 13:00 Levaquin 750 Mg/D5w 150 Ml IVPB Q24H MARTINEZ Vancomycin HCl 1,250 mg in 250 mls @ 166.667 mls/hr 10/27/25 15:00 Vancomycin 1,250 Mg/Ns 250 Ml IVPB 10/27/25 16:29 ONCE ONE Ondansetron HCl 4 mg 10/26/25 23:33 Ondansetron Inj 4 Mg/2 Ml Vial IV PUSH Q6H PRN Nausea And Vomiting Pantoprazole Sodium 40 mg 10/27/25 09:00 10/27/25 09:00 Pantoprazole Sodium Iv 40 Mg Vial IV PUSH 40 mg QAM MARTINEZ Administration Vancomycin HCl 1 each 10/27/25 12:50 Vancomycin For Acute Kidney Injury IVPB PRN PRN Vancomycin Protocol Radiology Results: ITS Impressions Chest X-Ray 10/27/25 07:23 IMPRESSION: 1. Worsening scattered bilateral airspace disease, left lung worse. Labs Labs: Laboratory Results - last 24 hr 10/26/25 10/26/25 10/26/25 16:21 17:30 18:00 WBC 10.4 H RBC 4.54 L Hgb 15.2 Hct 45.7 MCV 100.7 H MCH 33.5 MCHC 33.3 RDW 13.0 Plt Count 174 MPV 10.5 H Immature Gran % (Auto) 0.6 H Neut % (Auto) 89.2 H Lymph % (Auto) 5.2 L Weak[place] % (Auto) 3.9 Eos % (Auto) 0.4 Baso % (Auto) 0.7 Lymph # (Auto) 0.54 L [place] # (Auto) 0.4 Eos # (Auto) 0.0 Baso # (Auto) 0.1 Abs Immat Gran (auto) 0.06 H Absolute Neuts (auto) 9.3 H Absolute Nucleated RBC 0.000 Total Counted Neutrophils % (Manual) Band Neutrophils % Lymphocytes % (Manual) Monocytes % (Manual) Eosinophils % (Manual) Basophils % (Manual) Metamyelocytes % Myelocytes % Nucleated RBC % 0.0 Abs Neuts (Manual) Abs Lymphs (Manual) Abs Monocytes (Manual) Absolute Eos (Manual) Abs Basophils (Manual) Toxic Granulation Platelet Estimate Schistocytes Puncture Site ABG pH ABG pCO2 ABG pO2 ABG PO2/FiO2 Ratio ABG HCO3 ABG O2 Saturation ABG O2 Content ABG Base Excess A-a Gradient Oxyhemoglobin Total Hemoglobin O2 Delivery Device O2 Liters/Min FiO2 Sodium 138 Potassium 3.8 Chloride 100 Carbon Dioxide 29 Anion Gap 9 BUN 51 H Creatinine 1.43 H Estim Creat Clear Calc 42 Estimated GFR 48 L Glucose 121 H Hemoglobin A1c 5.5 Calcium 10.1 Total Bilirubin 1.5 H AST 38 ALT 18 Alkaline Phosphatase 72 Total Creatine Kinase Total Protein 8.0 Albumin 4.4 Urine Color Dark yellow Urine Appearance Clear Urine pH 5.0 Ur Specific Wilson 1.024 Urine Protein 1+ H Urine Glucose (UA) Negative Urine Ketones 1+ H Ur Blood (Man) Negative Urine Nitrate Negative Urine Bilirubin 1+ H Urine Urobilinogen 1.0 Leukocyte Esterase Rfl Trace H Urine RBC 0-2 Urine WBC 0-5 Ur Squamous Epith Cells None seen Urine Bacteria None seen Urine Casts >20 Hyaline Casts Present U Random Total Protein 15 Ur Random Sodium 19 Ur Random Urea 602 Urine Creatinine 322.4 Protein/Creat Ratio 2 0.05 Influenza A (RT-PCR) Negative Influenza B (RT-PCR) Negative RSV (RT-PCR) Negative SARS-CoV-2 RNA (RT-PCR) Positive A 10/26/25 10/27/25 10/27/25 23:56 05:24 08:00 WBC 4.5 RBC 4.42 L Hgb 14.6 Hct 43.2 MCV 97.7 MCH 33.0 MCHC 33.8 RDW 12.8 Plt Count 157 MPV 10.2 Immature Gran % (Auto) Not Reportable Neut % (Auto) Not Reportable Lymph % (Auto) Not Reportable Weakley % (Auto) Not Reportable Eos % (Auto) Not Reportable Baso % (Auto) Not Reportable Lymph # (Auto) Not Reportable Weakley # (Auto) Not Reportable Eos # (Auto) Not Reportable Baso # (Auto) Not Reportable Abs Immat Gran (auto) Not Reportable Absolute Neuts (auto) Not Reportable Absolute Nucleated RBC Not Reportable Total Counted 100 Neutrophils % (Manual) 48 Band Neutrophils % 22 H Lymphocytes % (Manual) 16 L Monocytes % (Manual) 5 Eosinophils % (Manual) 2 Basophils % (Manual) 0 Metamyelocytes % 6 Myelocytes % 1 Nucleated RBC % Not Reportable Abs Neuts (Manual) 3.15 Abs Lymphs (Manual) 0.72 L Abs Monocytes (Manual) 0.22 Absolute Eos (Manual) 0.09 Abs Basophils (Manual) 0.00 Toxic Granulation Present Platelet Estimate Adequate Schistocytes None seen Puncture Site Right brachial ABG pH 7.461 H ABG pCO2 39.6 ABG pO2 56.1 L ABG PO2/FiO2 Ratio 0.86 ABG HCO3 27.6 H ABG O2 Saturation 90.8 L ABG O2 Content 19.5 ABG Base Excess 3.6 A-a Gradient 364.3 Oxyhemoglobin 89.1 L Total Hemoglobin 15.6 O2 Delivery Device High flow therapy O2 Liters/Min 50.0 FiO2 65 Sodium 137 Potassium 3.3 L Chloride 100 Carbon Dioxide 30 Anion Gap 7 BUN 53 H Creatinine 1.05 Estim Creat Clear Calc 59 Estimated GFR > 60 Glucose 114 H Hemoglobin A1c Calcium 9.2 Total Bilirubin 1.3 AST 35 ALT 19 Alkaline Phosphatase 64 Total Creatine Kinase 44 L Total Protein 7.2 Albumin 3.8 Urine Color Urine Appearance Urine pH Ur Specific Wilson Urine Protein Urine Glucose (UA) Urine Ketones Ur Blood (Man) Urine Nitrate Urine Bilirubin Urine Urobilinogen Leukocyte Esterase Rfl Urine RBC Urine WBC Ur Squamous Epith Cells Urine Bacteria Urine Casts Hyaline Casts U Random Total Protein Ur Random Sodium Ur Random Urea Urine Creatinine Protein/Creat Ratio 2 Influenza A (RT-PCR) Influenza B (RT-PCR) RSV (RT-PCR) SARS-CoV-2 RNA (RT-PCR) Quality VTE Prophylaxis VTE prophylaxis: pharmacologic ordered
[2025-10-27] MEDS: metroNIDAZOLE 500 MG/ISO 100ML 500 MG/100 ML BAG 100 MG IVPB ×2 (15:04→21:23)
[2025-10-27] MEDS: VANCOMYCIN 1,250 MG/NS 250 ML 1,250 MG/250 ML BAG 166.67 MG IVPB (16:30)
[2025-10-27 17:46] LABS: MRSA (PCR) NOT DETECTED (NOT DETECTE)
[2025-10-27 18:19] LABS: Creatine Kinase 65 U/L (55-170)
[2025-10-27 18:49] LABS: CRP 26.7 mg/dL (<1.0)
[2025-10-27 18:51] LABS: Ferritin 277.00 ng/mL (11.1-264)
[2025-10-27] MEDS: dexAMETHasone SOD PHOS INJ 10 MG/ML 1 ML VIAL 6 MG IV PUSH (21:26)
[2025-10-27] MEDS: REMDESIVIR 100 MG/NS 250 ML 100 MG/250 ML BAG 250 MG IVPB (23:06)
[2025-10-28] VITALS (19 sets, daily range): BP systolic 133–170; BP diastolic 71–85; PULSE 93–111; RESP 16–33; TEMP 36.5–37.3; O2SAT 90–98
[2025-10-28] MEDS: SODIUM CHLORIDE 0.9% IV 1,000 ML 75 ML IV CONT ×2 (03:22→20:45)
[2025-10-28 04:33] LABS: Hematocrit 41.1 % (42.0-52.0); Hemoglobin 13.8 g/dL (14.0-18.0); Mean Corpuscular HGB Conc 33.6 g/dl (32-36); Mean Corpuscular Hemoglobin 32.8 pg (26-34); Mean Corpuscular Volume 97.6 fl (80-100); Platelet Count Result 163 k/mm3 (150-375); Red Blood Count 4.21 M/mm3 (4.6-6.20); White Blood Count 12.6 K/mm3 (4.5-10.0)
[2025-10-28 05:06] LABS: INR 1.4; Prothrombin Time 17.3 Seconds (11.1-14.7)
[2025-10-28 05:09] LABS: Alanine Aminotransferase 25 U/L (6-50); Albumin Level 3.5 g/dL (3.5-5.1); Alkaline Phosphatase 61 U/L (38-126); Anion Gap 5 mmol/L (4-12); Aspartate Amino Transferase 44 U/L (17-59); Bilirubin,Total 1.4 mg/dL (0.2-1.3); Blood Urea Nitrogen 50 mg/dL (9-20); Calcium 9.2 mg/dL (8.4-10.2); Carbon Dioxide 27 mmol/L (22-30); Chloride 104 mmol/L (98-107); Estimated CRCL calculation 68 ml/min; Estimated Glomerular Filt Rate > 60; Glucose 133 mg/dL (65-110); Magnesium 2.4 mg/dL (1.6-2.3); Potassium 3.5 mmol/L (3.4-5.0); Sodium 136 mmol/L (137-145); Total Protein 6.8 g/dL (6.3-8.2)
[2025-10-28 05:17] LABS: Anisocytosis 1+; Band Neutrophils Percent 17 % (0-6); Lymphocytes Absolute Manual 3.02 K/mm3 (1.1-4.5); Lymphocytes Percent Manual 24.0 % (18-44); Metamyelocytes Percent 5 %; Monocytes Absolute Manual 0.50 K/mm3 (0.1-0.90); Monocytes Percent Manual 4 % (3-9); Myelocytes Percent 1 %; Neutrophils Absolute Manual 8.31 K/mm3 (1.3-6.7); Neutrophils Percent Manual 49 % (46-73); Total Cells Counted 100
[2025-10-28 05:18] LABS: Burr Cells 1+; Schistocytes None Seen; Smudge Cells PRESENT; Toxic Granulation Present
[2025-10-28] MEDS: metroNIDAZOLE 500 MG/ISO 100ML 500 MG/100 ML BAG 100 MG IVPB ×3 (05:46→21:37)
[2025-10-28 07:52] LABS: NT Pro B Type Natriuretic Pept 673 pg/mL (19.9-100)
[2025-10-28 08:17] LABS: CRP 30.1 mg/dL (<1.0)
[2025-10-28 09:01] LABS: Procalcitonin 4.2 ng/mL
[2025-10-28] MEDS: PANTOPRAZOLE SODIUM IV 40 MG VIAL IV PUSH (09:19)
--- NOTE | 2025-10-28 09:59 | PM.IMPN2 ---
Assessment and Plan Assessment and Plan (1) COVID: Code(s): U07.1 - COVID-19 Status: Acute Assessment and Plan: - symptom onset: 10/25 - tested positive for COVID on: 10/26 - CXR Showed Right lung infiltrates - repeat CXR this morning showed worsening bilateral opacities, CT chest revered - Monitor cultures, MRSA negative Started on Levaquin, Flagyl continue Remdesivir and Dexamethasone S/p Vanc and Tolicizumab (2) Pneumonia: Qualifiers: Pneumonia type: due to COVID-19 virus Qualified Code(s): U07.1 - COVID-19; J12.82 - Pneumonia due to coronavirus disease 2019 Code(s): J18.9 - Pneumonia, unspecified organism Status: Acute Assessment and Plan: CXR showed worsening bilateral infiltrates continue above care (3) MATT (acute kidney injury): Code(s): N17.9 - Acute kidney failure, unspecified Status: Acute Assessment and Plan: Creatinine 1.43, BUN 51, GFR 48 upon admission on 10/26. No previous history of renal disease or CKD. - renal ultrasound resolved. Cr 1.05 from 1.43 monitor (4) Elevated glucose: Code(s): R73.09 - Other abnormal glucose Status: Acute Assessment and Plan: Elevated glucose upon admission on 10/26, blood sugar 121. No A1c on file. A1c 5.5, no diabetes (5) Parkinson disease: Qualifiers: Dyskinesia presence: unspecified whether dyskinesia Fluctuating manifestations: unspecified whether manifestations fluctuate Qualified Code(s): G20.A1 - Parkinson's disease without dyskinesia, without mention of fluctuations Code(s): G20.A1 - Parkinson's disease without dyskinesia, without mention of fluctuations Status: Chronic Assessment and Plan: History of Parkinson's disease. - continue carbidopa levodopa (6) HTN (hypertension): Qualifiers: Hypertension type: primary hypertension Qualified Code(s): I10 - Essential (primary) hypertension Code(s): I10 - Essential (primary) hypertension Status: Chronic Assessment and Plan: - chronic, currently 132/76, stable. - continue home medications - monitor Plan Acute hypoxemic respiratory failure on Airvo improving continue above treatment and titrate oxygen as tolerated ST for re-evaluate NPO status meanwhile, bedside swallow eval Diet: heart healthy GI Prophylaxis: N/a DVT Prophylaxis: Lovenox IV fluids: 2L -> 75 mL/hr x1L Lines/Tubes: pIV Code Status: full code Subjective Date/time seen: 10/28/25 09:59 Interval history: Comfortable at bedside on Airvo Ct chest showed severe bronchopneumonia Review of Systems Review of Systems: All systems reviewed & are unremarkable except as noted in HPI and below Exam Const: General: comfortable and no acute distress Other: , male, elderly, ill-appearing HENMT: Face/Nose/Sinus: Normal nares present Mouth: Yes dry mucous membranes Eyes: General: appearance normal, both eyes and all related structures Sclera: sclerae normal Pupils: Equal, round and reactive pupils present EOM: EOMs intact bilaterally Resp: Effort & Inspection: normal respiratory effort Other: Bibasilar crackles, left worse than right. Cardio: Rate: regular rate Rhythm: regular rhythm Other: S1-S2 present without murmur, rub, ectopy GI: Other: Abdomen soft, nondistended, nontender. Normoactive bowel sounds in all quadrants. Skin: General skin exam: normal color and no rashes or lesions noted Wounds: no wounds Neuro: Cranial nerves: Yes Equal, round and reactive pupils present Other: Generalized weakness, A&O x4. Normal speech and sensation. EOM intact. Extrem: General: normal to inspection Psych: Mental Status: mental status grossly normal Other: Masklike affect. Good insight and judgment, pleasant. Objective Data Vital Signs Vital Signs: Vital Signs - 24 hr 10/27/25 11:49 10/27/25 14:32 10/27/25 16:00 Temperature 99.1 F 99.3 F Pulse Rate 111 H 116 H Respiratory Rate 24 H 34 H Blood Pressure 139/80 140/74 Pulse Oximetry 98 95 93 Oxygen Delivery High Flow Therapy with Na Oxygen Flow Rate 45 Fraction of Inspired Oxygen 50 10/27/25 20:00 10/27/25 20:00 10/27/25 20:02 Temperature Pulse Rate 105 H 105 H Respiratory Rate 20 Blood Pressure Pulse Oximetry 95 95 Oxygen Delivery High Flow Therapy with Na High Flow Therapy with Na Oxygen Flow Rate 40 40 Fraction of Inspired Oxygen 50 50 10/27/25 21:11 10/27/25 22:00 10/28/25 00:00 Temperature 99.0 F Pulse Rate 106 H 103 H Respiratory Rate 34 H Blood Pressure 137/72 Pulse Oximetry 94 95 Oxygen Delivery High Flow Therapy with Na Oxygen Flow Rate 40 Fraction of Inspired Oxygen 50 10/28/25 00:00 10/28/25 00:05 10/28/25 02:00 Temperature 98.1 F Pulse Rate 102 H 110 H 95 Respiratory Rate 33 H Blood Pressure 170/85 H Pulse Oximetry 94 Oxygen Delivery Oxygen Flow Rate Fraction of Inspired Oxygen 10/28/25 04:00 10/28/25 04:00 10/28/25 05:59 Temperature 99.1 F Pulse Rate 103 H 102 H Respiratory Rate 32 H Blood Pressure 153/72 H Pulse Oximetry 96 96 Oxygen Delivery High Flow Therapy with Na Oxygen Flow Rate 40 Fraction of Inspired Oxygen 50 10/28/25 05:59 10/28/25 06:00 10/28/25 08:32 Temperature 99.1 F 98.2 F Pulse Rate 102 H 104 H 103 H Respiratory Rate 32 H 24 H Blood Pressure 153/72 H 152/81 H Pulse Oximetry 96 97 Oxygen Delivery Oxygen Flow Rate Fraction of Inspired Oxygen Intake/Output Intake/Output: Intake & Output 10/25/25 10/26/25 10/27/25 10/28/25 23:59 23:59 23:59 23:59 Intake Total 1000 4250 350 Output Total 100 350 590 Balance 900 3900 -240 Meds/Results Medications: Active Medications Generic Name Dose Route Start Last Admin Trade Name Freq PRN Reason Stop Dose Admin Acetaminophen 650 mg 10/26/25 23:08 Acetaminophen 325 Mg Tablet PO Q6H PRN Mild Pain (1-3) or Fever Acetaminophen 650 mg 10/27/25 10:34 Acetaminophen 650 Mg Suppository RECTAL Q6H PRN Mild Pain (1-3) or Fever Albuterol/Ipratropium 3 ml 10/26/25 23:08 Ipratropium 0.5 Mg/Albuterol Sulfate 2.5 Mg (Base) Ampul.Neb 3 Ml INHALATION Q6HRT PRN Shortness Of Breath Or Wheezing Atorvastatin Calcium 40 mg 10/28/25 09:00 10/28/25 09:18 Atorvastatin 40 Mg Tablet PO Not Given DAILY MARTINEZ Carbidopa/Levodopa 1 tablet 10/27/25 21:00 10/27/25 21:46 Carbidopa/Levodopa 12.5/50 Mg Cr Tablet PO Not Given HS MARTINEZ Carbidopa/Levodopa 3 tablet 10/27/25 16:00 10/28/25 05:59 Carbidopa/Levodopa 25/100 Mg Tablet PO Not Given 0600,1100,1600 MARTINEZ Dexamethasone Sodium Phosphate 6 mg 10/27/25 21:00 10/27/25 21:26 Dexamethasone Sod Phos Inj 10 Mg/Ml 1 Ml Vial IV PUSH 11/04/25 21:01 6 mg HS MARTINEZ Administration Remdesivir 100 mg in 250 mls @ 250 mls/hr 10/27/25 22:00 10/28/25 00:06 IVPB 10/30/25 22:59 Infused Q24H MARTINEZ Infusion Sodium Chloride 1,000 mls @ 75 mls/hr 10/27/25 10:20 10/28/25 03:22 Normal Saline Iv IV CONT 75 mls/hr .[id number] MARTINEZ Administration Levofloxacin/Dextrose 750 mg in 150 mls @ 100 mls/hr 10/27/25 13:00 10/27/25 16:39 Levaquin 750 Mg/D5w 150 Ml IVPB Infused Q24H MARTINEZ Infusion Metronidazole 500 mg in 100 mls @ 100 mls/hr 10/27/25 14:00 10/28/25 06:15 Flagyl 500 Mg/Iso Soln 100 Ml IVPB Infused Q8H MARTINEZ Infusion Ondansetron HCl 4 mg 10/26/25 23:33 Ondansetron Inj 4 Mg/2 Ml Vial IV PUSH Q6H PRN Nausea And Vomiting Pantoprazole Sodium 40 mg 10/27/25 09:00 10/28/25 09:19 Pantoprazole Sodium Iv 40 Mg Vial IV PUSH 40 mg QAM MARTINEZ Administration Vancomycin HCl 1 each 10/27/25 12:50 Vancomycin For Acute Kidney Injury IVPB PRN PRN Vancomycin Protocol Radiology Results: ITS Impressions Chest X-Ray 10/27/25 07:23 IMPRESSION: 1. Worsening scattered bilateral airspace disease, left lung worse. Chest CT 10/27/25 14:23 IMPRESSION: Severe bilateral bronchopneumonia. Follow-up is recommended to assess resolution. Labs Labs: Laboratory Results - last 24 hr 10/27/25 10/27/25 10/27/25 08:00 15:18 17:38 WBC 4.5 RBC 4.42 L Hgb 14.6 Hct 43.2 MCV 97.7 MCH 33.0 MCHC 33.8 RDW 12.8 Plt Count 157 MPV 10.2 Immature Gran % (Auto) Not Reportable Neut % (Auto) Not Reportable Lymph % (Auto) Not Reportable [place] % (Auto) Not Reportable Eos % (Auto) Not Reportable Baso % (Auto) Not Reportable Lymph # (Auto) Not Reportable [place] # (Auto) Not Reportable Eos # (Auto) Not Reportable Baso # (Auto) Not Reportable Abs Immat Gran (auto) Not Reportable Absolute Neuts (auto) Not Reportable Absolute Nucleated RBC Not Reportable Total Counted 100 Neutrophils % (Manual) 48 Band Neutrophils % 22 H Lymphocytes % (Manual) 16 L Monocytes % (Manual) 5 Eosinophils % (Manual) 2 Basophils % (Manual) 0 Metamyelocytes % 6 Myelocytes % 1 Nucleated RBC % Not Reportable Abs Neuts (Manual) 3.15 Abs Lymphs (Manual) 0.72 L Abs Monocytes (Manual) 0.22 Absolute Eos (Manual) 0.09 Abs Basophils (Manual) 0.00 Atypical Lymphocytes Smudge Cells Toxic Granulation Present Platelet Estimate Adequate Anisocytosis [place] Cells Schistocytes None seen PT INR D-Dimer Sodium Potassium Chloride Carbon Dioxide Anion Gap BUN Creatinine Estim Creat Clear Calc Estimated GFR Glucose Calcium Magnesium Ferritin 277.00 H Total Bilirubin Direct Bilirubin AST ALT Alkaline Phosphatase Total Creatine Kinase 65 C-Reactive Protein 26.7 H NT-Pro-B Natriuret Pep Total Protein Albumin Procalcitonin Nasal MRSA (PCR) Not detected 10/28/25 03:55 WBC 12.6 H RBC 4.21 L Hgb 13.8 L Hct 41.1 L MCV 97.6 MCH 32.8 MCHC 33.6 RDW 12.9 Plt Count 163 MPV 10.9 H Immature Gran % (Auto) Not Reportable Neut % (Auto) Not Reportable Lymph % (Auto) Not Reportable [place] % (Auto) Not Reportable Eos % (Auto) Not Reportable Baso % (Auto) Not Reportable Lymph # (Auto) Not Reportable [place] # (Auto) Not Reportable Eos # (Auto) Not Reportable Baso # (Auto) Not Reportable Abs Immat Gran (auto) Not Reportable Absolute Neuts (auto) Not Reportable Absolute Nucleated RBC Not Reportable Total Counted 100 Neutrophils % (Manual) 49 Band Neutrophils % 17 H Lymphocytes % (Manual) 24.0 Monocytes % (Manual) 4 Eosinophils % (Manual) Basophils % (Manual) Metamyelocytes % 5 Myelocytes % 1 Nucleated RBC % Not Reportable Abs Neuts (Manual) 8.31 H Abs Lymphs (Manual) 3.02 Abs Monocytes (Manual) 0.50 Absolute Eos (Manual) Abs Basophils (Manual) Atypical Lymphocytes Present Smudge Cells Present Toxic Granulation Present Platelet Estimate Adequate Anisocytosis 1+ [place] Cells 1+ Schistocytes None seen PT 17.3 H INR 1.4 D-Dimer 2.77 H Sodium 136 L Potassium 3.5 Chloride 104 Carbon Dioxide 27 Anion Gap 5 BUN 50 H Creatinine 0.90 Estim Creat Clear Calc 68 Estimated GFR > 60 Glucose 133 H Calcium 9.2 Magnesium 2.4 H Ferritin Total Bilirubin 1.4 H Direct Bilirubin 0.0 AST 44 ALT 25 Alkaline Phosphatase 61 Total Creatine Kinase C-Reactive Protein 30.1 H NT-Pro-B Natriuret Pep 673 H Total Protein 6.8 Albumin 3.5 Procalcitonin 4.2 Nasal MRSA (PCR) Quality VTE Prophylaxis VTE prophylaxis: pharmacologic ordered
--- NOTE | 2025-10-28 10:25 | PM.CNPUL ---
Assessment and Plan Assessment and plan (1) COVID: Code(s): U07.1 - COVID-19 Status: Acute Assessment and Plan: Patient tested positive for COVID-19 on 10/26/25 and started on dexamethasone on 10/26/25, remdesevir 10/26/2025. Emperically started on ceftriaxone and azithropmycin 10/26/25 and change to Levaquin, Flagyl and vancomycin on 10/27/2025. MRSA swab is negative. Currently the patient is on 3 L nasal cannula oxygen. ABG on 50 L, 65% FiO2 7.46/40/56, No evidence of hypercarbic respiratory failure. Remdesivir for 5 days unless he should recover and tolerate room air with rest, ambulation and while sleeping. - Dexamethasone 6 mg IV for 10 days - Continuous pulse oximetry - Avoid any fluid overload. - Patient with an elevated procalcitonin currently on Levaquin and Flagyl for possible superimposed bacterial infection. Would complete 7 days of both. - Influenza and RSV RT-PCR negative. - Positive D-dimer and will obtain CT angiogram of the chest to exclude PE. If negative will perform Dopplers on 10/29/2025. Keep saturations are 90-94% with NC oxygen and if requires > 15 L then Airvo high flow nasal cannula and reconsult pulmonary for consideration of baricitinib 4 mg PO Q day. If airvo fails to adequately oxygenate the patient escalate to BiPAP and if fails BiPAP then intubation. Discussed with in room and Dr. Marin, will sign off, call with questions. (2) Hypoxic respiratory failure: Code(s): J96.91 - Respiratory failure, unspecified with hypoxia Status: Acute Assessment and Plan: Etiology of hypoxic respiratory failure is COVID pneumonia. 10/26/2025 20:46, room air saturations 95% 10/27 12:30 a.m. 6 L nasal cannula saturations 92% 10/27 8:00 p.m. Airvo 40 L, 50% FiO2 saturations 95% 10/28 3:00 a.m. Airvo 50 L 65% FiO2 saturations 92% 10/28 10:00 a.m.: Nasal cannula 3 L saturation 93% I will order an echocardiogram for 10/29/2025. Goal saturation 90-94%. Wean oxygen accordingly. Patient should have home O2 assessment and overnight oximetry prior to discharge to determine his oxygen needs. Patient should have chest x-ray prior to discharge to serve as a new baseline. History of Present Illness History of Present Illness Consult date: 10/28/25 Chief complaint: COVID PNA, weakness Narrative: 10/28/2025: This is a new pulmonary consult for COVID pneumonia new 75-year-old with a history of Parkinson's, hypertension, urge incontinence. Patient has no chronic respiratory disease. He denies COPD, asthma, recurrent pneumonias, he is a never smoker. He has no occupational exposures. Baseline dyspnea on exertion is 1/2 block due to Parkinson's, shuffling gait and weak legs with no dyspnea on exertion. On 10/26/2025 patient presented to the emergency department with weakness. His blood pressure is 137/77, heart rate 99, respirations 22, room air saturations 95% but then required 6 L nasal cannula to maintain sats at 92%. He had a chest x-ray with infiltrate at the right base. White blood cell count 10.4, eosinophils 0.4%. Creatinine 1.43. MRSA swab negative. Patient was started on dexamethasone and remdesivir. patient was started on ceftriaxone and azithromycin. On 10/27 patient's oxygenation worsened and his chest x-ray showed increased infiltrates. CT scan of the chest showed severe bilateral bronchopneumonia. No emphysema, pulmonary fibrosis or pleural effusions mentioned. Imaging of radiographs is broken and I cannot review these imaging. Patient required Airvo 50 L, 65% FiO2 with saturations 92%. Antibiotics Were changed to Levaquin, Flagyl and vancomycin. 10/28/2025: Patient tells me he has improved. States he is breathing 50% back to his normal. His cough is better and now at 50% back to normal. He has thick phlegm that is difficult to expectorate. He denies any fever. White blood cell count 12.6, creatinine 0.9. BNP 673. Procalcitonin 4.2. CRP 30.1. D-dimer 2.77. When I enter the room he was on Airvo 40%, 49% FiO2 with saturations 97%. I changed him to 15 L nasal cannula and sequentially decreased his oxygen to 3 L with saturations 93%. He had no change in his clinical status on 3 L nasal cannula. DATA: EXAMINATION: CT diagnostic chest wo con, 10/27/2025 14:00 LABOR RELATIONS ANALYST HISTORY: ?pneumonia vs pulm edema COMPARISON: No comparisons available. TECHNIQUE: CT scan of the chest was performed without IV contrast. One or more of the following dose reduction techniques were used: automated exposure control, adjustment of the mA and/or kV according to patient size, use of iterative reconstruction technique. FINDINGS: No significant coronary calcification is present ([id number]) LUNGS: No tracheomalacia. No bronchiectasis. Large bilateral infiltrates. Micronodules in the upper lobes bilaterally in a tree-in-bud distribution with scattered infiltrates and areas of groundglass attenuation probably infectious. No significant emphysematous or pulmonary fibrotic changes. HEART AND PERICARDIUM: Within normal limits. AORTA: Normal caliber aorta. ADENOPATHY/MEDIASTINUM: None. LIMITED VIEWS OF THE ABDOMEN: Nonspecific patulous appearance of the esophagus with thickening of the esophagus may relate to underlying esophagitis. The visualized stomach appears distended. OSSEOUS STRUCTURES: No acute osseous abnormality.No suspicious lesions. OVERLYING SOFT TISSUES: Unremarkable. THYROID: The thyroid is unremarkable. IMPRESSION: Severe bilateral bronchopneumonia. Follow-up is recommended to assess resolution. Review of Systems Constitutional: Constitutional: Reports no additional constitutional complaints Eyes: Eyes: Reports no additional eye complaints ENT: Reports system reviewed and no additional complaints, except as documented Cardiovascular: Cardiovascular: Reports no additional cardiovascular complaints Respiratory: Respiratory: Reports no additional respiratory complaints Gastrointestinal: Gastrointestinal: Reports no additional gastrointestinal complaints Musculoskeletal: Musculoskeletal: Reports no additional musculoskeletal complaints Neurologic: Reports system reviewed and no additional complaints, except as documented Psychiatric: Psychiatric: Reports no additional psychiatric complaints Endocrine: Endocrine: Reports no additional endocrine complaints Hematologic/Lymphatic: Hematologic/Lymphatic: Reports no additional hematologic/lymphatic complaints Allergic/Immunologic: Allergic/Immunologic: Reports no additional allergic/immunologic complaints [facility] Past Medical History Medical History HTN (hypertension) Urge incontinence Parkinson disease Family History Family History (Updated 10/27/25 @ 02:25 by Charlotte Fournier RN) Mother Breast cancer Social History Social History Smoking status: Never smoker Second hand tobacco smoke exposure: No Alcohol intake: never Substance use: never Lack of Transportation: No Lack of Food: Never True Current Housing: I Have Housing Concerned About Future Housing: No Difficulty Paying Gas/Electric Bills: No Difficulty Paying for Meds: No Currently Unemployed: No Education: Master's Degree or Higher Difficulty w/ Childcare or Family Care: No Spiritual care concerns: No Meds Home Medications and Allergies Home Medications ?Medication ?Instructions ?Recorded ?Confirmed ?Type atorvastatin 40 mg tablet 40 mg PO DAILY 10/26/25 10/27/25 History carbidopa 25 mg-levodopa 100 mg 3 tablet PO TID 10/26/25 10/27/25 History tablet carbidopa ER 25 mg-levodopa 100 mg 1 tablet PO HS 10/26/25 10/27/25 History tablet,extended release metoprolol succinate 25 mg 25 mg PO DAILY 10/26/25 10/27/25 History tablet,extended release 24 hr mirabegron 25 mg tablet,extended 25 mg PO DAILY 10/26/25 10/27/25 History release 24 hr solifenacin 5 mg tablet 5 mg PO DAILY 10/26/25 10/27/25 History Allergies Allergy/AdvReac Type Severity Reaction Status Date / Time shellfish derived Allergy Hives Verified 10/27/25 01:50 Vital Signs Vital Signs - 24 hr 10/27/25 11:49 10/27/25 14:32 10/27/25 16:00 Temperature 37.3 C 37.4 C Pulse Rate 111 H 116 H Respiratory Rate 24 H 34 H Blood Pressure 139/80 140/74 Pulse Oximetry 98 95 93 Oxygen Delivery High Flow Therapy with Na Oxygen Flow Rate 45 Fraction of Inspired Oxygen 50 10/27/25 20:00 10/27/25 20:00 10/27/25 20:02 Temperature Pulse Rate 105 H 105 H Respiratory Rate 20 Blood Pressure Pulse Oximetry 95 95 Oxygen Delivery High Flow Therapy with Na High Flow Therapy with Na Oxygen Flow Rate 40 40 Fraction of Inspired Oxygen 50 50 10/27/25 21:11 10/27/25 22:00 10/28/25 00:00 Temperature 37.2 C Pulse Rate 106 H 103 H Respiratory Rate 34 H Blood Pressure 137/72 Pulse Oximetry 94 95 Oxygen Delivery High Flow Therapy with Na Oxygen Flow Rate 40 Fraction of Inspired Oxygen 50 10/28/25 00:00 10/28/25 00:05 10/28/25 02:00 Temperature 36.7 C Pulse Rate 102 H 110 H 95 Respiratory Rate 33 H Blood Pressure 170/85 H Pulse Oximetry 94 Oxygen Delivery Oxygen Flow Rate Fraction of Inspired Oxygen 10/28/25 04:00 10/28/25 04:00 10/28/25 05:59 Temperature 37.3 C Pulse Rate 103 H 102 H Respiratory Rate 32 H Blood Pressure 153/72 H Pulse Oximetry 96 96 Oxygen Delivery High Flow Therapy with Na Oxygen Flow Rate 40 Fraction of Inspired Oxygen 50 10/28/25 05:59 10/28/25 06:00 10/28/25 08:32 Temperature 37.3 C 36.8 C Pulse Rate 102 H 104 H 103 H Respiratory Rate 32 H 24 H Blood Pressure 153/72 H 152/81 H Pulse Oximetry 96 97 Oxygen Delivery Oxygen Flow Rate Fraction of Inspired Oxygen Exam Const: General: cooperative, comfortable and no acute distress Orientation/consciousness: oriented to person, oriented to place and oriented to time HENMT: Head: normal to inspection Ears: hearing grossly normal bilaterally Eyes: General: appearance normal, both eyes and all related structures Neck: Neck: normal visual inspection Chest: Chest palpation & inspection: normal inspection of the chest Resp: Effort & Inspection: normal respiratory effort and able to speak in complete sentences Auscultation: crackles, no rales, no rhonchi, no wheezes and lung sounds not diminished Other: Bilateral crackles right greater than left, no wheezes Cardio: Jugular venous distension: no JVD GI: Inspection: normal to inspection GI Palp: No abdominal tenderness Skin: General skin exam: normal color Neuro: General: oriented to person, oriented to place and oriented to time Extrem: General: normal to inspection Psych: Appearance: grossly normal Results Laboratory Findings 10/28/25 03:55 10/28/25 03:55 ABG, PT/INR, D-dimer: ABG ABG pH 7.461 (7.350-7.450) H 10/27/25 05:24 ABG pCO2 39.6 mmHg (35.0-45.0) 10/27/25 05:24 ABG pO2 56.1 mmHg (80.0-100.0) L 10/27/25 05:24 ABG O2 Saturation 90.8 % (95.0-100.0) L 10/27/25 05:24 PT/INR, D-dimer PT 17.3 Seconds (11.1-14.7) H 10/28/25 03:55 INR 1.4 10/28/25 03:55 D-Dimer 2.77 ug/mL (<0.48) H 10/28/25 03:55 Abnormal lab findings: Abnormal Labs 10/26/25 10/26/25 10/26/25 16:21 17:30 18:00 WBC 10.4 H RBC 4.54 L Hgb Hct MCV 100.7 H MPV 10.5 H Immature Gran % (Auto) 0.6 H Neut % (Auto) 89.2 H Lymph % (Auto) 5.2 L Lymph # (Auto) 0.54 L Abs Immat Gran (auto) 0.06 H Absolute Neuts (auto) 9.3 H Band Neutrophils % Lymphocytes % (Manual) Abs Neuts (Manual) Abs Lymphs (Manual) PT D-Dimer ABG pH ABG pO2 ABG HCO3 ABG O2 Saturation Oxyhemoglobin Sodium Potassium BUN 51 H Creatinine 1.43 H Estimated GFR 48 L Glucose 121 H Magnesium Ferritin Total Bilirubin 1.5 H Total Creatine Kinase C-Reactive Protein NT-Pro-B Natriuret Pep Urine Protein 1+ H Urine Ketones 1+ H Urine Bilirubin 1+ H Leukocyte Esterase Rfl Trace H SARS-CoV-2 RNA (RT-PCR) Positive A 10/26/25 10/27/25 10/27/25 23:56 05:24 08:00 WBC RBC 4.42 L Hgb Hct MCV MPV Immature Gran % (Auto) Neut % (Auto) Lymph % (Auto) Lymph # (Auto) Abs Immat Gran (auto) Absolute Neuts (auto) Band Neutrophils % 22 H Lymphocytes % (Manual) 16 L Abs Neuts (Manual) Abs Lymphs (Manual) 0.72 L PT D-Dimer ABG pH 7.461 H ABG pO2 56.1 L ABG HCO3 27.6 H ABG O2 Saturation 90.8 L Oxyhemoglobin 89.1 L Sodium Potassium 3.3 L BUN 53 H Creatinine Estimated GFR Glucose 114 H Magnesium Ferritin Total Bilirubin Total Creatine Kinase 44 L C-Reactive Protein NT-Pro-B Natriuret Pep Urine Protein Urine Ketones Urine Bilirubin Leukocyte Esterase Rfl SARS-CoV-2 RNA (RT-PCR) 10/27/25 10/28/25 17:38 03:55 WBC 12.6 H RBC 4.21 L Hgb 13.8 L Hct 41.1 L MCV MPV 10.9 H Immature Gran % (Auto) Neut % (Auto) Lymph % (Auto) Lymph # (Auto) Abs Immat Gran (auto) Absolute Neuts (auto) Band Neutrophils % 17 H Lymphocytes % (Manual) Abs Neuts (Manual) 8.31 H Abs Lymphs (Manual) PT 17.3 H D-Dimer 2.77 H ABG pH ABG pO2 ABG HCO3 ABG O2 Saturation Oxyhemoglobin Sodium 136 L Potassium BUN 50 H Creatinine Estimated GFR Glucose 133 H Magnesium 2.4 H Ferritin 277.00 H Total Bilirubin 1.4 H Total Creatine Kinase C-Reactive Protein 26.7 H 30.1 H NT-Pro-B Natriuret Pep 673 H Urine Protein Urine Ketones Urine Bilirubin Leukocyte Esterase Rfl SARS-CoV-2 RNA (RT-PCR) Diagnostic Findings Additional studies: ITS Impressions Chest X-Ray 10/26/25 16:46 IMPRESSION: 1. Emphysematous lungs. 2. Suspect infiltrates at the right lung base, likely pneumonia. Please correlate with clinical and lab findings. Chest X-Ray 10/27/25 07:23 IMPRESSION: 1. Worsening scattered bilateral airspace disease, left lung worse. Chest CT 10/27/25 14:23
[2025-10-28] MEDS: levoFLOXacin 750 MG/D5W 150 ML 750 MG/150 ML BAG 100 MG IVPB (13:45)
--- NOTE | 2025-10-28 15:50 | PCSTNOTE ---
Reassessed swallowing. Can have small bites of pudding applesauce and small sips of water. Recommend MBS tomorrow before allowing full meals and uncontrolled liquids. Dr. Marin notified.
[2025-10-28] MEDS: CARBIDOPA/LEVODOPA 25/100 MG TABLET 3 TABLET PO (16:58)
[2025-10-28] MEDS: dexAMETHasone SOD PHOS INJ 10 MG/ML 1 ML VIAL 6 MG IV PUSH (20:26)
[2025-10-28] MEDS: CARBIDOPA/LEVODOPA 25/100 MG CR TABLET 1 TABLET PO (20:26)
[2025-10-28] MEDS: REMDESIVIR 100 MG/NS 250 ML 100 MG/250 ML BAG 250 MG IVPB (23:07)
[2025-10-29] VITALS (14 sets, daily range): BP systolic 142–162; BP diastolic 79–96; PULSE 72–101; RESP 21–26; TEMP 36.2–37.3; O2SAT 90–100; BMI 24.7
--- NOTE | 2025-10-29 | CONSULT_PTH ---
PATIENT: Jone Nguyen LOC: [id number] U#:[id number] AGE/SX: 75/M ROOM: 348 RE10/27/[address]: Cuba Gill MD : 1950 BED: 01 DIS: 11/12/2025 SPEC #: [id number] RECD: 10/29/25 08:44 STATUS: JOE REQ #: [id number] MCKAYLA: 10/29/25 00:[address]: Nancy Henriquez DEPT: [facility] [place] Consult RECD BY: Alycia Mendieta MLT ENTERED: 10/29/25 08:45 SP TYPE: Consult OT DR: Davon Marcus MD Tissues: A - Peripheral Smear Procedures: Hematology Consult
[2025-10-29 04:45] LABS: Alanine Aminotransferase 23 U/L (6-50); Albumin Level 3.3 g/dL (3.5-5.1); Alkaline Phosphatase 72 U/L (38-126); Anion Gap 5 mmol/L (4-12); Aspartate Amino Transferase 47 U/L (17-59); Bilirubin,Total 1.1 mg/dL (0.2-1.3); Blood Urea Nitrogen 48 mg/dL (9-20); Calcium 9.0 mg/dL (8.4-10.2); Carbon Dioxide 27 mmol/L (22-30); Chloride 108 mmol/L (98-107); Estimated CRCL calculation 65 ml/min; Estimated Glomerular Filt Rate > 60; Glucose 143 mg/dL (65-110); Magnesium 2.4 mg/dL (1.6-2.3); Potassium 3.4 mmol/L (3.4-5.0); Sodium 140 mmol/L (137-145); Total Protein 6.4 g/dL (6.3-8.2)
[2025-10-29 05:57] LABS: Hematocrit 42.0 % (42.0-52.0); Hemoglobin 13.8 g/dL (14.0-18.0); Mean Corpuscular HGB Conc 32.9 g/dl (32-36); Mean Corpuscular Hemoglobin 32.7 pg (26-34); Mean Corpuscular Volume 99.5 fl (80-100); Platelet Count Result 171 k/mm3 (150-375); Red Blood Count 4.22 M/mm3 (4.6-6.20); White Blood Count 19.8 K/mm3 (4.5-10.0)
[2025-10-29] MEDS: CARBIDOPA/LEVODOPA 25/100 MG TABLET 3 TABLET PO ×3 (06:25→16:00)
[2025-10-29] MEDS: metroNIDAZOLE 500 MG/ISO 100ML 500 MG/100 ML BAG 100 MG IVPB ×3 (06:25→21:12)
[2025-10-29 06:53] LABS: Band Neutrophils Percent 29 % (0-6); Monocytes Absolute Manual 0.39 K/mm3 (0.1-0.90); Monocytes Percent Manual 2 % (3-9); Neutrophils Absolute Manual 19.40 K/mm3 (1.3-6.7); Neutrophils Percent Manual 69 % (46-73); Total Cells Counted 100
[2025-10-29 06:54] LABS: Burr Cells 1+; Dohle Bodies Present; Schistocytes None Seen; Toxic Granulation Present
--- NOTE | 2025-10-29 08:00 | ECHO_ITS ---
Patient Info Name: Jone Nguyen Age: 75 years : 1950 Gender: Male Ht: 72 in Wt: 182 lbs BSA: 2.05 m2 HR: 85 bpm BP: 142 / 96 mmHg Technical Quality: Good Exam Date: 10/29/2025 9:28 AM Patient Status: I Admit Date: 10/27/2025 Exam Type: CA echo doppler color flow Complete two-dimensional, color flow and Doppler transthoracic echocardiogram is performed. Staff Referring Physician: Davon Marcus Secondary Spanish Teacher: Aiden Ordaz III Attending Provider: Nancy Henriquez DO Summary 1. Complete two-dimensional, color flow and Doppler transthoracic echocardiogram is performed. 2. There is normal biventricular size and systolic function. 3. There is normal left ventricular diastolic function. 4. There are no significant valvular abnormalities. Left Ventricle The left ventricle is normal in size and systolic function. The left ventricular ejection fraction is visually estimated to be 60-65%. There is normal diastolic function. Right Ventricle The right ventricle is normal in size and systolic function. Left Atria The left atrium is normal size. Right Atria The right atrium is normal size. Atrial Septum The atrial septum is not well visualized. Aortic Valve There is no aortic stenosis. There is no aortic regurgitation. Pulmonic Valve The pulmonic valve is not visualized. Mitral Valve The mitral valve is normal. There is trace mitral regurgitation. Tricuspid Valve The tricuspid valve is normal. There is trace tricuspid regurgitation. Pericardium/Pleural Pericardium is normal in appearance with no evidence for significant pericardial effusion. Inferior Vena Cava Inferior vena cava is not well visualized. Aorta The aortic root at the level of the sinus of Valsalva measures 3.5 cm in diameter. Left Ventricular Outflow Tract Name Value Normal LVOT 2D LVOT Diameter 2.2 cm LVOT Doppler LVOT Peak Velocity 109 cm/s LVOT Peak Gradient 5 mmHg LVOT Mean Gradient 2 mmHg LVOT VTI 20 cm LVOT VTI/AV VTI Ratio 0.9 LVOT Stroke Volume 75 ml LVOT CO 5.8 l/min LVOT CI 2.8 l/min/m2 Pulmonic Valve Name Value Normal PV Doppler PV Peak Velocity 104 cm/s PV Peak Gradient 4 mmHg PV Mean Gradient 2 mmHg Mitral Valve Name Value Normal MV Doppler MV Peak Gradient 4 mmHg MV Mean Gradient 2 mmHg MV Area (Cont Eq VTI) 4.6 cm2 MV Diastolic Function MV E Peak Velocity 59 cm/s MV A Peak Velocity 78 cm/s MV E/A 0.8 MV Decel Time (PW) 198 ms MV Annular TDI MV E/e' (Septal) 6.8 MV E/e' (Lateral) 4.8 MV E/e' (Average) 5.8 Tricuspid Valve Name Value Normal TV Annular TDI TV Lateral Jessica s' Velocity 16.3 cm/s >=9.5 Aortic Valve Name Value Normal AV Doppler AV Peak Velocity 122 cm/s AV Peak Gradient 6 mmHg AV Mean Gradient 3 mmHg AV VTI 22 cm AV Area (Cont Eq VTI) 3.4 cm2 >=3.0 AV Area (Cont Eq Bakari) 3.4 cm2 AV DI (Bakari) 0.89 AV Regurgitation 2D LVOT Area 3.8 cm2 Ventricles Name Value Normal LV Dimensions 2D/MM IVS Diastolic Thickness (2D) 1.0 cm 0.6-1.0 LVID Diastole (2D) 4.2 cm 4.2-5.8 LVIW Diastolic Thickness (2D) 0.9 cm 0.6-1.0 LVID Systole (2D) 2.8 cm 2.5-4.0 LVOT Diameter 2.2 cm LV Mass (2D Cubed) 126.12 g 88.00-224.00 LV Mass Index (2D Cubed) 61 g/m2 49-115 Relative Wall Thickness (2D) 0.43 <=0.42 LV Fractional Shortening/Ejection Fraction 2D/MM LV Fractional Shortening (2D) 32 % 25-43 LV EF (2D Teichholz) 61 % LV Diastolic Volume (4C MOD) 97 ml LV EF (4C MOD) 61 % LV Diastolic Volume (2C MOD) 111 ml LV EF (2C MOD) 58 % LV Diastolic Volume (BP MOD) 103 ml 62-150 LV Diastolic Volume Index (BP MOD) 50 ml/m2 34-74 LV Systolic Volume (BP MOD) 42 ml 21-61 LV Systolic Volume Index (BP MOD) 20 ml/m2 11-31 LV EF (BP MOD) 60 % 52-72 LV Diastolic Length (4C) 8.1 cm LV Systolic Length (4C) 6.1 cm LV Stroke Volume (4C MOD) 59 ml Atria Name Value Normal LA Dimensions LA Volume (4C A-L) 42 ml LA Volume (BP A-L) 51 ml RA Dimensions RA Systolic Major Iraan Length (4C) 5.2 cm 2.1-2.7 RA Area (4C) 13.1 cm2 <=18.0 Report Signatures
[2025-10-29] MEDS: guaiFENesin 12 HR 600 MG TABCR 1200 MG PO ×2 (08:52→21:18)
[2025-10-29] MEDS: PANTOPRAZOLE SODIUM IV 40 MG VIAL IV PUSH (08:52)
[2025-10-29] MEDS: ATORVASTATIN 40 MG TABLET PO (08:52)
--- NOTE | 2025-10-29 12:10 | PCSTNOTE ---
Please refer to the Modified Barium Swallow Evaluation in the EMR. The above pt was seen for an MBS. Pt has a dx of COVID & weakness, but has a PMH of Parkinson disease. Pt was responsive for testing but kept eyes closed. Pt did not readily follow commands notably for an adequate chin tuck. The patient was seated for a lateral view and presented with 5 ml of thin liquid barium via a spoon, pudding consistency barium via a spoon, a cracker coated with barium pudding via a spoon, and uncontrolled thin liquid barium. This was presented via a cup. The oral stages were within functional limits although slowed mastication was noted; pharyngeal stage impairment: reduced tongue base retraction as evidenced by vallecular residue which ranged from trace to moderate across all consistencies, reduced laryngeal elevation as evidenced by laryngeal penetration during the swallow with thin liquids (when via the cup) and pudding consistency, & pyriform sinus residue which was min to moderate across all consistencies; and reduced laryngeal closure as evidenced by aspiration occurring as the penetrated contents gradually spilled into the airway after the swallow. Aspiration was trace but silent; pt was verbally cued to cough and dry swallow but he was not able to clear the aspiration or the residual. Impressions: Moderate/severe dysphagia due to the silent aspiration. Aspiration was inconsistent and trace. Recommendation: NPO with ice chips only until repeat MBS which should be done in 2-[address] tx[address] Dr Marin & YENNI Kaur notified.
[2025-10-29] MEDS: levoFLOXacin 750 MG/D5W 150 ML 750 MG/150 ML BAG 100 MG IVPB (12:27)
[2025-10-29] MEDS: SODIUM CHLORIDE 0.9% IV 1,000 ML 75 ML IV CONT (12:29)
--- NOTE | 2025-10-29 12:44 | P.PNIM_ITS ---
Assessment and Plan Assessment and Plan (1) COVID: Code(s): U07.1 - COVID-19 Status: Acute Assessment and Plan: - symptom onset: 10/25 - tested positive for COVID on: 10/26 - CXR Showed Right lung infiltrates - repeat CXR this morning showed worsening bilateral opacities, CT chest revered - Monitor cultures, MRSA negative - Continue Levaquin, Flagyl continue Remdesivir and Dexamethasone S/p Vanc and Tolicizumab pulmonology following (2) Pneumonia: Qualifiers: Pneumonia type: due to COVID-19 virus Qualified Code(s): U07.1 - COVID- 19; J12.82 - Pneumonia due to coronavirus disease 2019 Code(s): J18.9 - Pneumonia, unspecified organism Status: Acute Assessment and Plan: CXR showed worsening bilateral infiltrates continue above care (3) MATT (acute kidney injury): Code(s): N17.9 - Acute kidney failure, unspecified Status: Acute Assessment and Plan: Creatinine 1.43, BUN 51, GFR 48 upon admission on 10/26. No previous history of renal disease or CKD. - renal ultrasound resolved. Cr 1.05 from 1.43 monitor (4) Elevated glucose: Code(s): R73.09 - Other abnormal glucose Status: Acute Assessment and Plan: Elevated glucose upon admission on 10/26, blood sugar 121. No A1c on file. A1c 5.5, no diabetes (5) Parkinson disease: Qualifiers: Dyskinesia presence: unspecified whether dyskinesia Fluctuating manifestations: unspecified whether manifestations fluctuate Qualified Code(s): G20.A1 - Parkinson's disease without dyskinesia, without mention of fluctuations Code(s): G20.A1 - Parkinson's disease without dyskinesia, without mention of fluctuations Status: Chronic Assessment and Plan: History of Parkinson's disease. - continue carbidopa levodopa (6) HTN (hypertension): Qualifiers: Hypertension type: primary hypertension Qualified Code(s): I10 - Essential (primary) hypertension Code(s): I10 - Essential (primary) hypertension Status: Chronic Assessment and Plan: - chronic, currently 132/76, stable. - continue home medications - monitor Plan Acute hypoxemic respiratory failure, resolvign s/p Airvo, now on 3 liters HFNC improving continue titrating oxygen ST for re-evaluate NPO status meanwhile, bedside swallow eval Aspiration MBS today showed silent aspiration discussed with dietitian start PPN Continue ST, re-eval MBS in a few days monitor Diet: PPN, NPO due to aspiration noted on MBS DVT Prophylaxis: Lovenox Lines/Tubes: pIV Code Status: full code Subjective Date/time seen: 10/29/25 12:44 Interval history: Comfortable at bedside, continues to improve now on 3 L HFNC Review of Systems Review of Systems: All systems reviewed & are unremarkable except as noted in HPI and below Exam Const: General: comfortable and no acute distress Other: , male, elderly, ill-appearing HENMT: Face/Nose/Sinus: Normal nares present Mouth: Yes dry mucous membranes Eyes: General: appearance normal, both eyes and all related structures Sclera: sclerae normal Pupils: Equal, round and reactive pupils present EOM: EOMs intact bilaterally Resp: Effort & Inspection: normal respiratory effort Other: Bibasilar crackles, left worse than right. Cardio: Rate: regular rate Rhythm: regular rhythm Other: S1-S2 present without murmur, rub, ectopy GI: Other: Abdomen soft, nondistended, nontender. Normoactive bowel sounds in all quadrants. Skin: General skin exam: normal color and no rashes or lesions noted Wounds: no wounds Neuro: Cranial nerves: Yes Equal, round and reactive pupils present Other: Generalized weakness, A&O x4. Normal speech and sensation. EOM intact. Extrem: General: normal to inspection Psych: Mental Status: mental status grossly normal Other: Masklike affect. Good insight and judgment, pleasant. Objective Data Vital Signs Vital Signs: Vital Signs - 24 hr 10/28/25 14:00 10/28/25 14:10 10/28/25 14:30 Temperature Pulse Rate 102 H Respiratory Rate Blood Pressure Pulse Oximetry Oxygen Delivery High Flow Therapy with Na High Flow Therapy with Na Oxygen Flow Rate 7 7 10/28/25 16:00 10/28/25 16:00 10/28/25 18:00 Temperature Pulse Rate 104 H 98 Respiratory Rate Blood Pressure Pulse Oximetry 95 Oxygen Delivery High Flow Nasal Cannula Oxygen Flow Rate 3 10/28/25 20:00 10/28/25 20:00 10/28/25 20:20 Temperature Pulse Rate 100 108 H Respiratory Rate Blood Pressure Pulse Oximetry 90 91 Oxygen Delivery High Flow Nasal Cannula High Flow Nasal Cannula Oxygen Flow Rate 3.5 3.5 10/28/25 20:49 10/28/25 22:00 10/29/25 00:00 Temperature 97.7 F Pulse Rate 111 H 98 Respiratory Rate 22 H Blood Pressure 133/71 Pulse Oximetry 91 90 Oxygen Delivery High Flow Nasal Cannula Oxygen Flow Rate 3.5 10/29/25 00:00 10/29/25 00:00 10/29/25 02:00 Temperature 97.7 F Pulse Rate 95 86 95 Respiratory Rate 22 H Blood Pressure 148/82 H Pulse Oximetry 100 Oxygen Delivery Oxygen Flow Rate 10/29/25 04:00 10/29/25 04:00 10/29/25 04:00 Temperature 97.2 F L Pulse Rate 72 85 Respiratory Rate 21 H Blood Pressure 142/96 H Pulse Oximetry 94 95 Oxygen Delivery High Flow Nasal Cannula Oxygen Flow Rate 3 10/29/25 06:00 10/29/25 08:00 10/29/25 08:00 Temperature 97.7 F Pulse Rate 96 101 H 96 Respiratory Rate 22 H Blood Pressure 158/84 H Pulse Oximetry 93 Oxygen Delivery Oxygen Flow Rate 10/29/25 08:15 10/29/25 12:00 Temperature 97.6 F Pulse Rate 89 96 Respiratory Rate 26 H Blood Pressure 156/79 H Pulse Oximetry 93 94 Oxygen Delivery High Flow Nasal Cannula Oxygen Flow Rate 3 Intake/Output Intake/Output: Intake & Output 10/26/25 10/27/25 10/28/25 10/29/25 23:59 23:59 23:59 23:59 Intake Total 1000 4250 1723.7 1170 Output Total 100 350 590 930 Balance 900 3900 1133.7 240 Meds/Results Medications: Active Medications Generic Name Dose Route Start Last Admin Trade Name Freq PRN Reason Stop Dose Admin Acetaminophen 650 mg 10/26/25 23:08 Acetaminophen 325 Mg Tablet PO Q6H PRN Mild Pain (1-3) or Fever Acetaminophen 650 mg 10/27/25 10:34 Acetaminophen 650 Mg Suppository RECTAL Q6H PRN Mild Pain (1-3) or Fever Albuterol/Ipratropium 3 ml 10/26/25 23:08 Ipratropium 0.5 Mg/Albuterol Sulfate 2.5 Mg (Base) Ampul.Neb 3 Ml INHALATION Q6HRT PRN Shortness Of Breath Or Wheezing Atorvastatin Calcium 40 mg 10/28/25 09:00 10/29/25 08:52 Atorvastatin 40 Mg Tablet PO 40 mg DAILY MARTINEZ Administration Carbidopa/Levodopa 3 tablet 10/27/25 16:00 10/29/25 12:27 Carbidopa/Levodopa 25/100 Mg Tablet PO 3 tablet 0600,1100,1600 MARTINEZ Administration Carbidopa/Levodopa 1 tablet 10/28/25 21:00 10/28/25 20:26 Carbidopa/Levodopa 25/100 Mg Cr Tablet PO 1 tablet HS MARTINEZ Administration Dexamethasone Sodium Phosphate 6 mg 10/27/25 21:00 10/28/25 20:26 Dexamethasone Sod Phos Inj 10 Mg/Ml 1 Ml Vial IV PUSH 11/04/25 21:01 6 mg HS MARTINEZ Administration Guaifenesin 1,200 mg 10/28/25 21:00 10/29/25 08:52 Guaifenesin 12 Hr 600 Mg Tabcr PO 1,200 mg Q12HR MARTINEZ Administration Remdesivir 100 mg in 250 mls @ 250 mls/hr 10/27/25 22:00 10/29/25 00:07 IVPB 10/30/25 22:59 Infused Q24H MARTINEZ Infusion Sodium Chloride 1,000 mls @ 75 mls/hr 10/27/25 10:20 10/29/25 12:29 Normal Saline Iv IV CONT 75 mls/hr .[id number] MARTINEZ Administration Levofloxacin/Dextrose 750 mg in 150 mls @ 100 mls/hr 10/27/25 13:00 10/29/25 12:27 Levaquin 750 Mg/D5w 150 Ml IVPB 100 mls/hr Q24H MARTINEZ Administration Metronidazole 500 mg in 100 mls @ 100 mls/hr 10/27/25 14:00 10/29/25 07:30 Flagyl 500 Mg/Iso Soln 100 Ml IVPB Infused Q8H MARTINEZ Infusion Ondansetron HCl 4 mg 10/26/25 23:33 Ondansetron Inj 4 Mg/2 Ml Vial IV PUSH Q6H PRN Nausea And Vomiting Pantoprazole Sodium 40 mg 10/27/25 09:00 10/29/25 08:52 Pantoprazole Sodium Iv 40 Mg Vial IV PUSH 40 mg QAM MARTINEZ Administration Perflutren Lipid Microsphere 0 ml 10/28/25 10:42 Perflutren Lipid Microspheres 1.5 Ml Vial Diluted To 10 Ml Total Volume IV PUSH 10/31/25 10:42 ONCE PRN adequate visualization Protocol Radiology Results: ITS Impressions Chest X-Ray 10/27/25 07:23 IMPRESSION: 1. Worsening scattered bilateral airspace disease, left lung worse. Chest CT 10/27/25 14:23 IMPRESSION: Severe bilateral bronchopneumonia. Follow-up is recommended to assess resolution. Chest CTA 10/28/25 11:20 IMPRESSION: 1. No PE identified given respiratory motion artifact. 2. Large dense bilateral lower lobe airspace disease, consider aspiration. Modified Barium Swallow 10/29/25 11:27 IMPRESSION: No aspiration observed. See speech therapist's note for complete details. Labs Labs: Laboratory Results - last 24 hr 10/29/25 03:52 WBC 19.8 H RBC 4.22 L Hgb 13.8 L Hct 42.0 MCV 99.5 MCH 32.7 MCHC 32.9 RDW 12.8 Plt Count 171 MPV 10.7 H Immature Gran % (Auto) Not Reportable Neut % (Auto) Not Reportable Lymph % (Auto) Not Reportable Whiteside % (Auto) Not Reportable Eos % (Auto) Not Reportable Baso % (Auto) Not Reportable Lymph # (Auto) Not Reportable Whiteside # (Auto) Not Reportable Eos # (Auto) Not Reportable Baso # (Auto) Not Reportable Abs Immat Gran (auto) Not Reportable Absolute Neuts (auto) Not Reportable Absolute Nucleated RBC Not Reportable Total Counted 100 Neutrophils % (Manual) 69 Band Neutrophils % 29 H Monocytes % (Manual) 2 L Nucleated RBC % Not Reportable Abs Neuts (Manual) 19.40 H Abs Monocytes (Manual) 0.39 Toxic Granulation Present Dohle Bodies Present Platelet Estimate Adequate Anne Cells 1+ Schistocytes None seen Sodium 140 Potassium 3.4 Chloride 108 H Carbon Dioxide 27 Anion Gap 5 BUN 48 H Creatinine 0.95 Estim Creat Clear Calc 65 Estimated GFR > 60 Glucose 143 H Lactic Acid 1.4 Calcium 9.0 Magnesium 2.4 H Total Bilirubin 1.1 AST 47 ALT 23 Alkaline Phosphatase 72 Total Protein 6.4 Albumin 3.3 L Quality VTE Prophylaxis VTE prophylaxis: pharmacologic ordered
[2025-10-29] MEDS: dexAMETHasone SOD PHOS INJ 10 MG/ML 1 ML VIAL 6 MG IV PUSH (21:12)
[2025-10-29] MEDS: CARBIDOPA/LEVODOPA 25/100 MG CR TABLET 1 TABLET PO (21:18)
[2025-10-29] MEDS: ACETAMINOPHEN 325 MG TABLET 650 MG PO (21:35)
[2025-10-29] MEDS: REMDESIVIR 100 MG/NS 250 ML 100 MG/250 ML BAG 250 MG IVPB (22:25)
[2025-10-30] VITALS (16 sets, daily range): BP systolic 116–159; BP diastolic 63–88; PULSE 65–98; RESP 18–20; TEMP 36.3–36.8; O2SAT 92–99
[2025-10-30] MEDS: SODIUM CHLORIDE 0.9% IV 1,000 ML 75 ML IV CONT ×2 (03:29→19:19)
[2025-10-30 04:39] LABS: Hematocrit 39.0 % (42.0-52.0); Hemoglobin 12.7 g/dL (14.0-18.0); Mean Corpuscular HGB Conc 32.6 g/dl (32-36); Mean Corpuscular Hemoglobin 32.9 pg (26-34); Mean Corpuscular Volume 101.0 fl (80-100); Platelet Count Result 149 k/mm3 (150-375); Red Blood Count 3.86 M/mm3 (4.6-6.20); White Blood Count 14.6 K/mm3 (4.5-10.0)
[2025-10-30 04:50] LABS: INR 1.3; Prothrombin Time 16.1 Seconds (11.1-14.7)
[2025-10-30 04:51] LABS: Partial Thromboplastin Time 33.9 Seconds (22.3-36.8)
[2025-10-30 04:58] LABS: Alanine Aminotransferase 12 U/L (6-50); Albumin Level 2.7 g/dL (3.5-5.1); Alkaline Phosphatase 65 U/L (38-126); Anion Gap 4 mmol/L (4-12); Aspartate Amino Transferase 38 U/L (17-59); Bilirubin,Total 0.9 mg/dL (0.2-1.3); Blood Urea Nitrogen 38 mg/dL (9-20); Calcium 8.0 mg/dL (8.4-10.2); Carbon Dioxide 24 mmol/L (22-30); Chloride 113 mmol/L (98-107); Estimated CRCL calculation 76 ml/min; Estimated Glomerular Filt Rate > 60; Glucose 124 mg/dL (65-110); Magnesium 2.1 mg/dL (1.6-2.3); Potassium 3.6 mmol/L (3.4-5.0); Sodium 141 mmol/L (137-145); Total Protein 5.5 g/dL (6.3-8.2)
[2025-10-30 05:06] LABS: Transferrin 113 mg/dL (206-381)
[2025-10-30 05:14] LABS: Band Neutrophils Percent 7 % (0-6); Lymphocytes Absolute Manual 0.58 K/mm3 (1.1-4.5); Lymphocytes Percent Manual 4.0 % (18-44); Monocytes Absolute Manual 0.29 K/mm3 (0.1-0.90); Monocytes Percent Manual 2 % (3-9); Neutrophils Absolute Manual 13.72 K/mm3 (1.3-6.7); Neutrophils Percent Manual 87 % (46-73); Total Cells Counted 100
[2025-10-30 05:16] LABS: Schistocytes None Seen; Toxic Granulation Present
[2025-10-30 05:17] LABS: Anisocytosis 1+; Burr Cells 1+
[2025-10-30] MEDS: metroNIDAZOLE 500 MG/ISO 100ML 500 MG/100 ML BAG 100 MG IVPB (05:42)
--- NOTE | 2025-10-30 07:43 | P.PNIM_ITS ---
Assessment and Plan Assessment and Plan (1) COVID: Code(s): U07.1 - COVID-19 Status: Acute Assessment and Plan: - symptom onset: 10/25 - tested positive for COVID on: 10/26 - CXR Showed Right lung infiltrates - repeat CXR this morning showed worsening bilateral opacities, CT chest revered - Monitor cultures, MRSA negative - Continue Levaquin,DC Flagyl, continue Remdesivir and Dexamethasone S/p Vanc and Tolicizumab pulmonology following (2) Pneumonia: Qualifiers: Pneumonia type: due to COVID-19 virus Qualified Code(s): U07.1 - COVID- 19; J12.82 - Pneumonia due to coronavirus disease 2019 Code(s): J18.9 - Pneumonia, unspecified organism Status: Acute Assessment and Plan: CXR showed worsening bilateral infiltrates continue above care (3) MATT (acute kidney injury): Code(s): N17.9 - Acute kidney failure, unspecified Status: Acute Assessment and Plan: Creatinine 1.43, BUN 51, GFR 48 upon admission on 10/26. No previous history of renal disease or CKD. - renal ultrasound resolved. Cr 1.05 from 1.43 monitor (4) Elevated glucose: Code(s): R73.09 - Other abnormal glucose Status: Acute Assessment and Plan: Elevated glucose upon admission on 10/26, blood sugar 121. No A1c on file. A1c 5.5, no diabetes (5) Parkinson disease: Qualifiers: Dyskinesia presence: unspecified whether dyskinesia Fluctuating manifestations: unspecified whether manifestations fluctuate Qualified Code(s): G20.A1 - Parkinson's disease without dyskinesia, without mention of fluctuations Code(s): G20.A1 - Parkinson's disease without dyskinesia, without mention of fluctuations Status: Chronic Assessment and Plan: History of Parkinson's disease. - continue carbidopa levodopa (6) HTN (hypertension): Qualifiers: Hypertension type: primary hypertension Qualified Code(s): I10 - Essential (primary) hypertension Code(s): I10 - Essential (primary) hypertension Status: Chronic Assessment and Plan: - chronic, currently 132/76, stable. - continue home medications - monitor Plan Acute hypoxemic respiratory failure, resolvign s/p Airvo, now on 3 liters HFNC improving continue titrating oxygen ST for re-evaluate NPO status meanwhile, bedside swallow eval Aspiration MBS today showed silent aspiration discussed with dietitian start PPN Continue ST, re-eval MBS in a few days monitor Diet: PPN, NPO due to aspiration noted on MBS DVT Prophylaxis: Lovenox Lines/Tubes: pIV Code Status: full code Subjective Date/time seen: 10/30/25 07:43 Interval history: Patient is currently treated for COVID. Patient is currently on remdesivir, Decadron Levaquin, and metronidazole. Venous Doppler negative for-DVT, modified barium swallow negative for aspiration, CTA negative for PE, and blood culture still no growth. Patient was initially started on TPN butter patient refused PICC line for TPN. Patient underwent MBS today. Speech therapy recommend Therapeutic PO trials with QUALITY CONTROL ASSOCIATE only (Puree and Moderately thick liquid, alternate bites and sips via tsp, small amounts, repeat swallow x 2 each bite) 2. Tongue base retraction and Laryngeal adduction exercises. Repeat MBS 2 days Exam Const: General: comfortable and no acute distress Other: , male, elderly, ill-appearing HENMT: Face/Nose/Sinus: Normal nares present Mouth: Yes dry mucous membranes Eyes: General: appearance normal, both eyes and all related structures Sclera: sclerae normal Pupils: Equal, round and reactive pupils present EOM: EOMs intact bilaterally Resp: Effort & Inspection: normal respiratory effort Other: Bibasilar crackles, left worse than right. Cardio: Rate: regular rate Rhythm: regular rhythm Other: S1-S2 present without murmur, rub, ectopy GI: Other: Abdomen soft, nondistended, nontender. Normoactive bowel sounds in all quadrants. Skin: General skin exam: normal color and no rashes or lesions noted Wounds: no wounds Neuro: Cranial nerves: Yes Equal, round and reactive pupils present Other: Generalized weakness, A&O x4. Normal speech and sensation. EOM intact. Extrem: General: normal to inspection Psych: Mental Status: mental status grossly normal Other: Masklike affect. Good insight and judgment, pleasant. Objective Data Vital Signs Vital Signs: Vital Signs - 24 hr 10/29/25 08:00 10/29/25 08:00 10/29/25 08:00 Temperature 97.7 F Pulse Rate 101 H 96 Respiratory Rate 22 H Blood Pressure 158/84 H Pulse Oximetry 93 95 Oxygen Delivery High Flow Nasal Cannula Oxygen Flow Rate 3 10/29/25 08:15 10/29/25 12:00 10/29/25 12:00 Temperature 97.6 F Pulse Rate 89 96 76 Respiratory Rate 26 H Blood Pressure 156/79 H Pulse Oximetry 93 94 Oxygen Delivery High Flow Nasal Cannula Oxygen Flow Rate 3 10/29/25 12:00 10/29/25 15:56 10/29/25 16:00 Temperature 97.6 F Pulse Rate 92 78 Respiratory Rate 26 H Blood Pressure 162/86 H Pulse Oximetry 96 100 Oxygen Delivery High Flow Nasal Cannula Oxygen Flow Rate 2 10/29/25 16:00 10/29/25 18:00 10/29/25 19:52 Temperature Pulse Rate 89 Respiratory Rate Blood Pressure Pulse Oximetry 99 95 Oxygen Delivery High Flow Nasal Cannula High Flow Nasal Cannula Oxygen Flow Rate 1 2 10/29/25 20:00 10/29/25 20:00 10/29/25 22:00 Temperature 99.1 F Pulse Rate 94 91 94 Respiratory Rate 26 H Blood Pressure 142/89 H Pulse Oximetry 91 Oxygen Delivery Oxygen Flow Rate 10/29/25 23:13 10/30/25 00:00 10/30/25 00:00 Temperature 98.8 F Pulse Rate 92 81 Respiratory Rate 22 H Blood Pressure 157/85 H Pulse Oximetry 93 95 Oxygen Delivery High Flow Nasal Cannula Oxygen Flow Rate 2 10/30/25 02:00 10/30/25 04:00 10/30/25 04:00 Temperature Pulse Rate 79 78 Respiratory Rate Blood Pressure Pulse Oximetry 97 Oxygen Delivery High Flow Nasal Cannula Oxygen Flow Rate 2 10/30/25 04:00 10/30/25 06:25 Temperature 97.6 F Pulse Rate 98 82 Respiratory Rate 20 Blood Pressure 155/88 H Pulse Oximetry 99 Oxygen Delivery Oxygen Flow Rate Intake/Output Intake/Output: Intake & Output 10/27/25 10/28/25 10/29/25 10/30/25 23:59 23:59 23:59 23:59 Intake Total 4250 1723.7 1420 1160 Output Total 462 298 8208 650 Balance 3900 1133.7 140 510 Meds/Results Medications: Active Medications Generic Name Dose Route Start Last Admin Trade Name Freq PRN Reason Stop Dose Admin Acetaminophen 650 mg 10/26/25 23:08 10/29/25 21:35 Acetaminophen 325 Mg Tablet PO 650 mg Q6H PRN Administration Mild Pain (1-3) or Fever Acetaminophen 650 mg 10/27/25 10:34 Acetaminophen 650 Mg Suppository RECTAL Q6H PRN Mild Pain (1-3) or Fever Albuterol/Ipratropium 3 ml 10/26/25 23:08 Ipratropium 0.5 Mg/Albuterol Sulfate 2.5 Mg (Base) Ampul.Neb 3 Ml INHALATION Q6HRT PRN Shortness Of Breath Or Wheezing Atorvastatin Calcium 40 mg 10/28/25 09:00 10/29/25 08:52 Atorvastatin 40 Mg Tablet PO 40 mg DAILY MARTINEZ Administration Bisacodyl 10 mg 10/29/25 16:43 Bisacodyl 10 Mg Suppository RECTAL QAM PRN Constipation Carbidopa/Levodopa 3 tablet 10/27/25 16:00 10/30/25 06:45 Carbidopa/Levodopa 25/100 Mg Tablet PO Not Given 0600,1100,1600 MARTINEZ Carbidopa/Levodopa 1 tablet 10/28/25 21:00 10/29/25 21:18 Carbidopa/Levodopa 25/100 Mg Cr Tablet PO 1 tablet HS MARTINEZ Administration Dexamethasone Sodium Phosphate 6 mg 10/27/25 21:00 10/29/25 21:12 Dexamethasone Sod Phos Inj 10 Mg/Ml 1 Ml Vial IV PUSH 11/04/25 21:01 6 mg HS MARTINEZ Administration Guaifenesin 1,200 mg 10/28/25 21:00 10/29/25 21:18 Guaifenesin 12 Hr 600 Mg Tabcr PO 1,200 mg Q12HR MARTINEZ Administration Remdesivir 100 mg in 250 mls @ 250 mls/hr 10/27/25 22:00 10/29/25 22:25 IVPB 10/30/25 22:59 250 mls/hr Q24H MARTINEZ Administration Sodium Chloride 1,000 mls @ 75 mls/hr 10/27/25 10:20 10/30/25 03:29 Normal Saline Iv IV CONT 75 mls/hr .[id number] MARTINEZ Administration Levofloxacin/Dextrose 750 mg in 150 mls @ 100 mls/hr 10/27/25 13:00 10/29/25 13:57 Levaquin 750 Mg/D5w 150 Ml IVPB Infused Q24H MARTINEZ Infusion Metronidazole 500 mg in 100 mls @ 100 mls/hr 10/27/25 14:00 10/30/25 05:42 Flagyl 500 Mg/Iso Soln 100 Ml IVPB 100 mls/hr Q8H MARTINEZ Administration Ondansetron HCl 4 mg 10/26/25 23:33 Ondansetron Inj 4 Mg/2 Ml Vial IV PUSH Q6H PRN Nausea And Vomiting Pantoprazole Sodium 40 mg 10/27/25 09:00 10/29/25 08:52 Pantoprazole Sodium Iv 40 Mg Vial IV PUSH 40 mg QAM MARTINEZ Administration Perflutren Lipid Microsphere 0 ml 10/28/25 10:42 Perflutren Lipid Microspheres 1.5 Ml Vial Diluted To 10 Ml Total Volume IV PUSH 10/31/25 10:42 ONCE PRN adequate visualization Protocol Radiology Results: ITS Impressions Chest X-Ray 10/27/25 07:23 IMPRESSION: 1. Worsening scattered bilateral airspace disease, left lung worse. Chest CT 10/27/25 14:23 IMPRESSION: Severe bilateral bronchopneumonia. Follow-up is recommended to assess resolution. Chest CTA 10/28/25 11:20 IMPRESSION: 1. No PE identified given respiratory motion artifact. 2. Large dense bilateral lower lobe airspace disease, consider aspiration. Modified Barium Swallow 10/29/25 11:27 IMPRESSION: No aspiration observed. See speech therapist's note for complete details. Venous Doppler Study 10/29/25 12:50 Impression: Negative for DVT. Labs Labs: Laboratory Results - last 24 hr 10/30/25 10/30/25 00:28 04:11 WBC 14.6 H RBC 3.86 L Hgb 12.7 L Hct 39.0 L MCV 101.0 H MCH 32.9 MCHC 32.6 RDW 12.8 Plt Count 149 L MPV 10.2 Immature Gran % (Auto) Not Reportable Neut % (Auto) Not Reportable Lymph % (Auto) Not Reportable Heard % (Auto) Not Reportable Eos % (Auto) Not Reportable Baso % (Auto) Not Reportable Lymph # (Auto) Not Reportable Heard # (Auto) Not Reportable Eos # (Auto) Not Reportable Baso # (Auto) Not Reportable Abs Immat Gran (auto) Not Reportable Absolute Neuts (auto) Not Reportable Absolute Nucleated RBC Not Reportable Total Counted 100 Neutrophils % (Manual) 87 H Band Neutrophils % 7 H Lymphocytes % (Manual) 4.0 L Monocytes % (Manual) 2 L Nucleated RBC % Not Reportable Abs Neuts (Manual) 13.72 H Abs Lymphs (Manual) 0.58 L Abs Monocytes (Manual) 0.29 Toxic Granulation Present Platelet Estimate Adequate Anisocytosis 1+ Anne Cells 1+ Schistocytes None seen PT 16.1 H INR 1.3 APTT 33.9 Sodium 141 Potassium 3.6 Chloride 113 H Carbon Dioxide 24 Anion Gap 4 BUN 38 H D Creatinine 0.80 Estim Creat Clear Calc 76 Estimated GFR > 60 Glucose 124 H POC Capillary Glucose 124 H Calcium 8.0 L Phosphorus 2.5 Magnesium 2.1 Transferrin 113 L Total Bilirubin 0.9 Direct Bilirubin 0.0 AST 38 ALT 12 Alkaline Phosphatase 65 Total Protein 5.5 L Albumin 2.7 L Hospitalist MIPS Advance Care Plan I have confirmed that the patient's Advanced Care Plan is present, code status is documented, or surrogate decision maker is listed in patient medical record.: Yes Medication Reconciliation I have utilized all available resources to obtain, update and review the patients current medications (includes all prescriptions, OTC, herbals, cannabis, and nutritional supplements).: Yes
[2025-10-30] MEDS: ATORVASTATIN 40 MG TABLET PO (09:10)
[2025-10-30] MEDS: guaiFENesin 12 HR 600 MG TABCR 1200 MG PO ×2 (09:10→20:51)
[2025-10-30] MEDS: PANTOPRAZOLE SODIUM IV 40 MG VIAL IV PUSH (09:52)
[2025-10-30] MEDS: CARBIDOPA/LEVODOPA 25/100 MG TABLET 3 TABLET PO ×2 (11:47→16:15)
--- NOTE | 2025-10-30 12:22 | PCNFU ---
Nutrition Follow-Up Complete: Inadequate energy intake related to NPO status as evidenced by current diet orders Goal:Diet order, PO Intake Pt not meeting goal Pt current nutrition is NPO per speech. Nutrition recommendation: continue with current plan of care at this time Last recorded weight is 82.6 kg. Bowel Motility: +BM 10/30 Labs Reviewed: Hgb:12.7, HCT:39, BUN:38, Glu:124 Meds Noted: lovenox, protonix Skin: WNL Additional Notes: Pt more alert and oriented today, continues with NPO orders but is working with speech. No PPN started, no orders for dobhoff at this time as pt and are wanting to hold off and see how swallow function improves. Monitor for diet orders, intake, tolerance, wt, labs. Follow up in 3 days.
[2025-10-30 13:31] LABS: Triglycerides 65 mg/dL (<150)
--- NOTE | 2025-10-30 15:14 | PCSTNOTE ---
Please refer to the Modified Barium Swallow Evaluation in the EMR. The patient is a 75 year old male admitted 10/26/25 with sudden onset of weakness and is covid positive. The patient has a history of Parkinson's Disease. A bedside swallow evaluation and MBS were completed 10/29/25 with recommendations NPO a with ice chips till repeat MBS ca be completed 1-2 days. The patient is being seen today to complete a repeat MBS due to improved level of alertness, ability to follow directives, and reduced CSA noted at bedside. The patient was seated for a lateral view and presented with 5 ml of thin liquid barium via a spoon, 5 cc/tsp mildly thick liquid barium, 5cc moderately thick liquid barium, cup amounts moderately thick liquid barium, and pudding consistency barium via a spoon. Oral stages were within functional limits. Pharyngeal stage impairment: reduced tongue base retraction as evidenced by vallecular residue which ranged from trace to moderate across all consistencies, Moderate vallecular residual was present with thin, mildly thick and pudding consistency. Mild vallecular residual was noted for tsp amounts moderately thick and small controlled cup trials of moderately thick liquid. The patient was able to follow directives and complete 2 repeat swallows for each trial which eliminated a portion of the residual remaining in the vallecula. Utilization of alternating moderately thick liquid barium with pudding thick consistency was also beneficial in reducing residual within the vallecula. Reduced laryngeal adduction as evidenced by joseph silent aspiration during the swallow with thin liquids (5cc/tsp) minimal residual noted in the pyriform for pudding consistency. Patient was verbally cued to cough and dry swallow but he was not able to clear the aspiration or the residual. Impressions: Moderate dysphagia due to the silent aspiration 5cc thin liquid barium. Moderate vallecular residual with mildly thick liquid barium and pudding consistency. Also mild vallecular residual with moderately thick liquid barium. Recommendation: 1. Therapeutic PO trials with COVERAGE ANALYST only (Puree and Moderately thick liquid, alternate bites and sips via tsp, small amounts, repeat swallow x 2 each bite) 2. Tongue base retraction and Laryngeal adduction exercises. Repeat MBS 2 days
[2025-10-30] MEDS: CARBIDOPA/LEVODOPA 25/100 MG CR TABLET 1 TABLET PO (20:52)
[2025-10-30] MEDS: REMDESIVIR 100 MG/NS 250 ML 100 MG/250 ML BAG 250 MG IVPB (21:04)
[2025-10-31] VITALS (18 sets, daily range): BP systolic 114–170; BP diastolic 67–96; PULSE 58–98; RESP 18–20; TEMP 36.5–36.7; O2SAT 90–96
[2025-10-31] MEDS: ACETAMINOPHEN 325 MG TABLET 650 MG PO ×2 (02:02→17:35)
[2025-10-31 04:44] LABS: Hematocrit 40.6 % (42.0-52.0); Hemoglobin 13.3 g/dL (14.0-18.0); Mean Corpuscular HGB Conc 32.8 g/dl (32-36); Mean Corpuscular Hemoglobin 32.8 pg (26-34); Mean Corpuscular Volume 100.0 fl (80-100); Platelet Count Result 143 k/mm3 (150-375); Red Blood Count 4.06 M/mm3 (4.6-6.20); White Blood Count 8.3 K/mm3 (4.5-10.0)
[2025-10-31 05:06] LABS: Alanine Aminotransferase 10 U/L (6-50); Albumin Level 2.7 g/dL (3.5-5.1); Alkaline Phosphatase 67 U/L (38-126); Anion Gap 5 mmol/L (4-12); Aspartate Amino Transferase 41 U/L (17-59); Bilirubin,Total 1.0 mg/dL (0.2-1.3); Blood Urea Nitrogen 28 mg/dL (9-20); Calcium 8.0 mg/dL (8.4-10.2); Carbon Dioxide 25 mmol/L (22-30); Chloride 110 mmol/L (98-107); Estimated CRCL calculation 78 ml/min; Estimated Glomerular Filt Rate > 60; Glucose 87 mg/dL (65-110); Potassium 3.2 mmol/L (3.4-5.0); Sodium 140 mmol/L (137-145); Total Protein 5.6 g/dL (6.3-8.2)
[2025-10-31] MEDS: CARBIDOPA/LEVODOPA 25/100 MG TABLET 3 TABLET PO ×3 (05:50→15:34)
[2025-10-31] MEDS: SODIUM CHLORIDE 0.9% IV 1,000 ML 75 ML IV CONT ×2 (05:54→20:44)
[2025-10-31] MEDS: ATORVASTATIN 40 MG TABLET PO (09:00)
[2025-10-31] MEDS: guaiFENesin 12 HR 600 MG TABCR 1200 MG PO ×2 (09:01→20:43)
[2025-10-31] MEDS: PANTOPRAZOLE SODIUM IV 40 MG VIAL IV PUSH (09:08)
--- NOTE | 2025-10-31 09:44 | P.PNIM_ITS ---
Assessment and Plan Assessment and Plan (1) COVID: Code(s): U07.1 - COVID-19 Status: Acute Assessment and Plan: - symptom onset: 10/25 - tested positive for COVID on: 10/26 - CXR Showed Right lung infiltrates - repeat CXR this morning showed worsening bilateral opacities, CT chest revered - Monitor cultures, MRSA negative - Continue Levaquin,DC Flagyl, continue Remdesivir and Dexamethasone S/p Vanc and Tolicizumab pulmonology following (2) Pneumonia: Qualifiers: Pneumonia type: due to COVID-19 virus Qualified Code(s): U07.1 - COVID- 19; J12.82 - Pneumonia due to coronavirus disease 2019 Code(s): J18.9 - Pneumonia, unspecified organism Status: Acute Assessment and Plan: CXR showed worsening bilateral infiltrates continue above care (3) MATT (acute kidney injury): Code(s): N17.9 - Acute kidney failure, unspecified Status: Acute Assessment and Plan: Creatinine 1.43, BUN 51, GFR 48 upon admission on 10/26. No previous history of renal disease or CKD. - renal ultrasound resolved. Cr 1.05 from 1.43 monitor (4) Elevated glucose: Code(s): R73.09 - Other abnormal glucose Status: Acute Assessment and Plan: Elevated glucose upon admission on 10/26, blood sugar 121. No A1c on file. A1c 5.5, no diabetes (5) Parkinson disease: Qualifiers: Dyskinesia presence: unspecified whether dyskinesia Fluctuating manifestations: unspecified whether manifestations fluctuate Qualified Code(s): G20.A1 - Parkinson's disease without dyskinesia, without mention of fluctuations Code(s): G20.A1 - Parkinson's disease without dyskinesia, without mention of fluctuations Status: Chronic Assessment and Plan: History of Parkinson's disease. - continue carbidopa levodopa (6) HTN (hypertension): Qualifiers: Hypertension type: primary hypertension Qualified Code(s): I10 - Essential (primary) hypertension Code(s): I10 - Essential (primary) hypertension Status: Chronic Assessment and Plan: - chronic, currently 132/76, stable. - continue home medications - monitor Plan Acute hypoxemic respiratory failure, resolvign s/p Airvo, now on 3 liters HFNC improving continue titrating oxygen ST for re-evaluate NPO status meanwhile, bedside swallow eval Aspiration MBS today showed silent aspiration discussed with dietitian start PPN Continue ST, re-eval MBS in a few days monitor Diet: PPN, NPO due to aspiration noted on MBS DVT Prophylaxis: Lovenox Lines/Tubes: pIV Code Status: full code Subjective Date/time seen: 10/31/25 09:44 Interval history: Patient is currently treated for COVID. Patient is currently on remdesivir, Decadron Levaquin, and metronidazole. Venous Doppler negative for-DVT, modified barium swallow negative for aspiration, CTA negative for PE, and blood culture still no growth. Patient was initially started on TPN butter patient refused PICC line for TPN. Patient underwent MBS today. Speech therapy recommend Therapeutic PO trials with TITLE I PARAPROFESSIONAL only (Puree and Moderately thick liquid, alternate bites and sips via tsp, small amounts, repeat swallow x 2 each bite) 2. Tongue base retraction and Laryngeal adduction exercises. Repeat MBS 2 days 10/31: No acute events overnight. Continue physical therapy and speech therapy Review of Systems Review of Systems: All systems reviewed & are unremarkable except as noted in HPI and below Exam Const: General: comfortable and no acute distress Other: , male, elderly, ill-appearing HENMT: Face/Nose/Sinus: Normal nares present Mouth: Yes dry mucous membranes Eyes: General: appearance normal, both eyes and all related structures Sclera: sclerae normal Pupils: Equal, round and reactive pupils present EOM: EOMs intact bilaterally Resp: Effort & Inspection: normal respiratory effort Other: Bibasilar crackles, left worse than right. Cardio: Rate: regular rate Rhythm: regular rhythm Other: S1-S2 present without murmur, rub, ectopy GI: Other: Abdomen soft, nondistended, nontender. Normoactive bowel sounds in all quadrants. Skin: General skin exam: normal color and no rashes or lesions noted Wounds: no wounds Neuro: Cranial nerves: Yes Equal, round and reactive pupils present Other: Generalized weakness, A&O x4. Normal speech and sensation. EOM intact. Extrem: General: normal to inspection Psych: Mental Status: mental status grossly normal Other: Masklike affect. Good insight and judgment, pleasant. Objective Data Vital Signs Vital Signs: Vital Signs - 24 hr 10/30/25 10:00 10/30/25 11:32 10/30/25 12:00 Temperature 97.4 F L Pulse Rate 87 95 Respiratory Rate 20 Blood Pressure 116/63 Pulse Oximetry 93 94 Oxygen Delivery High Flow Nasal Cannula Oxygen Flow Rate 1 10/30/25 12:00 10/30/25 14:00 10/30/25 16:00 Temperature Pulse Rate 74 88 Respiratory Rate Blood Pressure Pulse Oximetry 94 Oxygen Delivery Room Air Oxygen Flow Rate 10/30/25 16:00 10/30/25 16:13 10/30/25 18:00 Temperature 98.3 F Pulse Rate 73 75 65 Respiratory Rate 20 Blood Pressure 149/83 H Pulse Oximetry 92 Oxygen Delivery Oxygen Flow Rate 10/30/25 20:00 10/30/25 20:00 10/30/25 20:32 Temperature 98.0 F Pulse Rate 73 73 Respiratory Rate 20 Blood Pressure 155/88 H Pulse Oximetry 94 93 Oxygen Delivery Room Air Oxygen Flow Rate 10/30/25 22:05 10/31/25 00:00 10/31/25 00:00 Temperature Pulse Rate 65 83 Respiratory Rate Blood Pressure Pulse Oximetry 90 Oxygen Delivery Room Air Oxygen Flow Rate 10/31/25 00:00 10/31/25 02:16 10/31/25 02:20 Temperature 98.1 F Pulse Rate 73 76 Respiratory Rate 20 Blood Pressure 170/78 H 154/74 H Pulse Oximetry 91 Oxygen Delivery Oxygen Flow Rate 10/31/25 04:00 10/31/25 04:00 10/31/25 04:49 Temperature 97.7 F Pulse Rate 78 67 Respiratory Rate 20 Blood Pressure 147/71 H Pulse Oximetry 90 95 Oxygen Delivery Room Air Oxygen Flow Rate 10/31/25 06:00 10/31/25 07:37 Temperature 97.7 F Pulse Rate 58 L 63 Respiratory Rate 20 Blood Pressure 153/68 H Pulse Oximetry 91 Oxygen Delivery Oxygen Flow Rate Intake/Output Intake/Output: Intake & Output 10/28/25 10/29/25 10/30/25 10/31/25 23:59 23:59 23:59 23:59 Intake Total 1723.7 1670 2160 793.7 Output Total 590 1280 1250 600 Balance 1133.7 390 910 193.7 Meds/Results Medications: Active Medications Generic Name Dose Route Start Last Admin Trade Name Freq PRN Reason Stop Dose Admin Acetaminophen 650 mg 10/26/25 23:08 10/31/25 02:02 Acetaminophen 325 Mg Tablet PO 650 mg Q6H PRN Administration Mild Pain (1-3) or Fever Acetaminophen 650 mg 10/27/25 10:34 Acetaminophen 650 Mg Suppository RECTAL Q6H PRN Mild Pain (1-3) or Fever Albuterol/Ipratropium 3 ml 10/26/25 23:08 Ipratropium 0.5 Mg/Albuterol Sulfate 2.5 Mg (Base) Ampul.Neb 3 Ml INHALATION Q6HRT PRN Shortness Of Breath Or Wheezing Atorvastatin Calcium 40 mg 10/28/25 09:00 10/31/25 09:00 Atorvastatin 40 Mg Tablet PO 40 mg DAILY MARTINEZ Administration Bisacodyl 10 mg 10/29/25 16:43 Bisacodyl 10 Mg Suppository RECTAL QAM PRN Constipation Carbidopa/Levodopa 3 tablet 10/27/25 16:00 10/31/25 05:50 Carbidopa/Levodopa 25/100 Mg Tablet PO 3 tablet 0600,1100,1600 MARTINEZ Administration Carbidopa/Levodopa 1 tablet 10/28/25 21:00 10/30/25 20:52 Carbidopa/Levodopa 25/100 Mg Cr Tablet PO 1 tablet HS MARTINEZ Administration Dexamethasone 6 mg 10/30/25 21:00 10/30/25 20:51 Dexamethasone 2 Mg Tablet PO 11/04/25 21:01 6 mg QHS MARTINEZ Administration Guaifenesin 1,200 mg 10/28/25 21:00 10/31/25 09:01 Guaifenesin 12 Hr 600 Mg Tabcr PO 1,200 mg Q12HR MARTINEZ Administration Sodium Chloride 1,000 mls @ 75 mls/hr 10/27/25 10:20 10/31/25 05:54 Normal Saline Iv IV CONT 75 mls/hr .[id number] MARTINEZ Administration Ondansetron HCl 4 mg 10/26/25 23:33 Ondansetron Inj 4 Mg/2 Ml Vial IV PUSH Q6H PRN Nausea And Vomiting Pantoprazole Sodium 40 mg 10/27/25 09:00 10/31/25 09:08 Pantoprazole Sodium Iv 40 Mg Vial IV PUSH 40 mg QAM MARTINEZ Administration Perflutren Lipid Microsphere 0 ml 10/28/25 10:42 Perflutren Lipid Microspheres 1.5 Ml Vial Diluted To 10 Ml Total Volume IV PUSH 10/31/25 10:42 ONCE PRN adequate visualization Protocol Radiology Results: ITS Impressions Chest X-Ray 10/27/25 07:23 IMPRESSION: 1. Worsening scattered bilateral airspace disease, left lung worse. Chest CT 10/27/25 14:23 IMPRESSION: Severe bilateral bronchopneumonia. Follow-up is recommended to assess resolution. Chest CTA 10/28/25 11:20 IMPRESSION: 1. No PE identified given respiratory motion artifact. 2. Large dense bilateral lower lobe airspace disease, consider aspiration. Venous Doppler Study 10/29/25 12:50 Impression: Negative for DVT. Modified Barium Swallow 10/30/25 14:15 IMPRESSION: Trace aspiration observed with thin barium. See speech therapist's note for complete evaluation. Labs Labs: Laboratory Results - last 24 hr 10/29/25 10/30/25 10/30/25 03:52 10:59 13:05 WBC RBC Hgb Hct MCV MCH MCHC RDW Plt Count MPV Sodium Potassium Chloride Carbon Dioxide Anion Gap BUN Creatinine Estim Creat Clear Calc Estimated GFR Glucose POC Capillary Glucose 112 H Calcium Phosphorus Total Bilirubin AST ALT Alkaline Phosphatase Total Protein Albumin Triglycerides 65 M.pneumoniae IgM Titer <770 10/30/25 10/31/25 10/31/25 15:45 02:09 04:12 WBC 8.3 RBC 4.06 L Hgb 13.3 L Hct 40.6 L MCV 100.0 MCH 32.8 MCHC 32.8 RDW 12.7 Plt Count 143 L MPV 9.9 Sodium 140 Potassium 3.2 L Chloride 110 H Carbon Dioxide 25 Anion Gap 5 BUN 28 H D Creatinine 0.78 Estim Creat Clear Calc 78 Estimated GFR > 60 Glucose 87 POC Capillary Glucose 78 86 Calcium 8.0 L Phosphorus 2.2 L Total Bilirubin 1.0 AST 41 ALT 10 Alkaline Phosphatase 67 Total Protein 5.6 L Albumin 2.7 L Triglycerides M.pneumoniae IgM Titer Hospitalist MIPS Advance Care Plan I have confirmed that the patient's Advanced Care Plan is present, code status is documented, or surrogate decision maker is listed in patient medical record.: Yes Medication Reconciliation I have utilized all available resources to obtain, update and review the patients current medications (includes all prescriptions, OTC, herbals, cannabis, and nutritional supplements).: Yes
[2025-10-31 10:01] LABS: Magnesium 1.8 mg/dL (1.6-2.3)
[2025-10-31] MEDS: POTASSIUM CHLORIDE 20 MEQ ER TABLET 40 MEQ PO (10:45)
[2025-10-31] MEDS: POTASSIUM CHLORIDE INJ 40 MEQ in SODIUM CHLORIDE 0.9% IV 500 ML 130 MEQ IVPB (10:49)
[2025-10-31] MEDS: METOPROLOL TARTRATE 25 MG TABLET PO (12:17)
[2025-10-31] MEDS: CARBIDOPA/LEVODOPA 25/100 MG CR TABLET 1 TABLET PO (20:43)
[2025-11-01] VITALS (12 sets, daily range): BP systolic 135–183; BP diastolic 72–91; PULSE 58–88; RESP 20–22; TEMP 36.2–36.6; O2SAT 94–96
[2025-11-01] MEDS: ACETAMINOPHEN 325 MG TABLET 650 MG PO ×2 (03:38→16:12)
[2025-11-01 04:28] LABS: Hematocrit 40.0 % (42.0-52.0); Hemoglobin 13.8 g/dL (14.0-18.0); Mean Corpuscular HGB Conc 34.5 g/dl (32-36); Mean Corpuscular Hemoglobin 32.9 pg (26-34); Mean Corpuscular Volume 95.5 fl (80-100); Platelet Count Result 154 k/mm3 (150-375); Red Blood Count 4.19 M/mm3 (4.6-6.20); White Blood Count 8.0 K/mm3 (4.5-10.0)
[2025-11-01 04:49] LABS: Alanine Aminotransferase 7 U/L (6-50); Albumin Level 3.0 g/dL (3.5-5.1); Alkaline Phosphatase 61 U/L (38-126); Anion Gap 6 mmol/L (4-12); Aspartate Amino Transferase 40 U/L (17-59); Bilirubin,Total 1.5 mg/dL (0.2-1.3); Blood Urea Nitrogen 19 mg/dL (9-20); Calcium 7.9 mg/dL (8.4-10.2); Carbon Dioxide 25 mmol/L (22-30); Chloride 104 mmol/L (98-107); Estimated CRCL calculation 94 ml/min; Estimated Glomerular Filt Rate > 60; Glucose 79 mg/dL (65-110); Magnesium 1.7 mg/dL (1.6-2.3); Potassium 3.4 mmol/L (3.4-5.0); Sodium 135 mmol/L (137-145); Total Protein 5.9 g/dL (6.3-8.2)
[2025-11-01 05:05] LABS: Band Neutrophils Percent 5 % (0-6); Lymphocytes Absolute Manual 0.48 K/mm3 (1.1-4.5); Lymphocytes Percent Manual 6.0 % (18-44); Monocytes Absolute Manual 0.16 K/mm3 (0.1-0.90); Monocytes Percent Manual 2 % (3-9); Neutrophils Absolute Manual 7.36 K/mm3 (1.3-6.7); Neutrophils Percent Manual 87 % (46-73); Total Cells Counted 100
[2025-11-01 05:06] LABS: Anisocytosis 1+; Burr Cells 1+; Ovalocytes 1+; Schistocytes None Seen
[2025-11-01] MEDS: CARBIDOPA/LEVODOPA 25/100 MG TABLET 3 TABLET PO ×3 (05:59→16:03)
--- NOTE | 2025-11-01 07:15 | PM.IMPN2 ---
Assessment and Plan Assessment and Plan (1) COVID: Code(s): U07.1 - COVID-19 Status: Acute Assessment and Plan: - symptom onset: 10/25 - tested positive for COVID on: 10/26 - CXR Showed Right lung infiltrates - repeat CXR this morning showed worsening bilateral opacities, CT chest revered - Monitor cultures, MRSA negative -complete Levaquin, Flagyl, Remdesivir and Dexamethasone S/p Vanc and Tolicizumab pulmonology following (2) Pneumonia: Qualifiers: Pneumonia type: due to COVID-19 virus Qualified Code(s): U07.1 - COVID-19; J12.82 - Pneumonia due to coronavirus disease 2019 Code(s): J18.9 - Pneumonia, unspecified organism Status: Acute Assessment and Plan: CXR showed worsening bilateral infiltrates on 10/27 continue above care (3) MATT (acute kidney injury): Code(s): N17.9 - Acute kidney failure, unspecified Status: Acute Assessment and Plan: Creatinine 1.43, BUN 51, GFR 48 upon admission on 10/26. No previous history of renal disease or CKD. - renal ultrasound resolved. Cr 1.05 from 1.43 monitor (4) Elevated glucose: Code(s): R73.09 - Other abnormal glucose Status: Acute Assessment and Plan: Elevated glucose upon admission on 10/26, blood sugar 121. No A1c on file. A1c 5.5, no diabetes (5) Parkinson disease: Qualifiers: Dyskinesia presence: unspecified whether dyskinesia Fluctuating manifestations: unspecified whether manifestations fluctuate Qualified Code(s): G20.A1 - Parkinson's disease without dyskinesia, without mention of fluctuations Code(s): G20.A1 - Parkinson's disease without dyskinesia, without mention of fluctuations Status: Chronic Assessment and Plan: History of Parkinson's disease. - continue carbidopa levodopa (6) HTN (hypertension): Qualifiers: Hypertension type: primary hypertension Qualified Code(s): I10 - Essential (primary) hypertension Code(s): I10 - Essential (primary) hypertension Status: Chronic Assessment and Plan: - chronic, currently 132/76, stable. - continue home medications - monitor (7) Dysphagia: Code(s): R13.10 - Dysphagia, unspecified Status: Acute Assessment and Plan: failed MBS x2 Inserted Dobbhoff for nutrition Will continue speech therapy Consult GI for PEG Plan Acute hypoxemic respiratory failure, resolvign s/p Airvo, now on 3 liters HFNC improving continue titrating oxygen ST for re-evaluate NPO status meanwhile, bedside swallow eval Aspiration MBS today showed silent aspiration discussed with dietitian start PPN Continue ST, re-eval MBS in a few days monitor Diet: PPN, NPO due to aspiration noted on MBS DVT Prophylaxis: Lovenox Lines/Tubes: pIV Code Status: full code Subjective Date/time seen: 11/01/25 07:15 Interval history: Patient is currently treated for COVID. Patient is currently on remdesivir, Decadron Levaquin, and metronidazole. Venous Doppler negative for-DVT, modified barium swallow negative for aspiration, CTA negative for PE, and blood culture still no growth. Patient was initially started on TPN butter patient refused PICC line for TPN. Patient underwent MBS today. Speech therapy recommend Therapeutic PO trials with EM[employer]OYEE [employer]ATIONS [employer] only (Puree and Moderately thick liquid, alternate bites and sips via tsp, small amounts, repeat swallow x 2 each bite) 2. Tongue base retraction and Laryngeal adduction exercises. Repeat MBS 2 days 10/31: No acute events overnight. Continue physical therapy and speech therapy 11/01: Patient underwent repeat MBS which was worse than before. Patient underwent insertion of Dobbhoff tube for nutrition. Continue physical therapy and physical therapy. Completed antibiotic therapy. Will discuss with the family about placing PEG tube Review of Systems Review of Systems: All systems reviewed & are unremarkable except as noted in HPI and below Exam Const: General: comfortable and no acute distress Other: , male, elderly, ill-appearing HENMT: Face/Nose/Sinus: Normal nares present Mouth: Yes dry mucous membranes Eyes: General: appearance normal, both eyes and all related structures Sclera: sclerae normal Pupils: Equal, round and reactive pupils present EOM: EOMs intact bilaterally Resp: Effort & Inspection: normal respiratory effort Other: Bibasilar crackles, left worse than right. Cardio: Rate: regular rate Rhythm: regular rhythm Other: S1-S2 present without murmur, rub, ectopy GI: Other: Abdomen soft, nondistended, nontender. Normoactive bowel sounds in all quadrants. Skin: General skin exam: normal color and no rashes or lesions noted Wounds: no wounds Neuro: Cranial nerves: Yes Equal, round and reactive pupils present Other: Generalized weakness, A&O x4. Normal speech and sensation. EOM intact. Extrem: General: normal to inspection Psych: Mental Status: mental status grossly normal Other: Masklike affect. Good insight and judgment, pleasant. Objective Data Vital Signs Vital Signs: Vital Signs - 24 hr 10/31/25 07:37 10/31/25 08:00 10/31/25 08:00 Temperature 97.7 F Pulse Rate 63 71 Respiratory Rate 20 Blood Pressure 153/68 H Pulse Oximetry 91 92 Oxygen Delivery Room Air 10/31/25 10:00 10/31/25 11:25 10/31/25 11:45 Temperature 97.8 F Pulse Rate 98 86 Respiratory Rate 18 Blood Pressure 114/67 Pulse Oximetry 95 92 Oxygen Delivery Room Air 10/31/25 12:00 10/31/25 12:17 10/31/25 16:00 Temperature 97.8 F Pulse Rate 83 85 92 Respiratory Rate 18 Blood Pressure 168/83 H Pulse Oximetry 95 Oxygen Delivery 10/31/25 16:00 10/31/25 16:00 10/31/25 17:43 Temperature Pulse Rate 83 90 Respiratory Rate 20 Blood Pressure 148/96 H Pulse Oximetry 96 96 Oxygen Delivery Room Air 10/31/25 18:00 10/31/25 20:00 10/31/25 20:00 Temperature Pulse Rate 76 60 Respiratory Rate Blood Pressure Pulse Oximetry 93 Oxygen Delivery Room Air 10/31/25 20:00 10/31/25 23:15 11/01/25 00:00 Temperature 97.9 F Pulse Rate 58 L 61 63 Respiratory Rate 20 Blood Pressure 151/94 H Pulse Oximetry 94 Oxygen Delivery 11/01/25 04:00 Temperature Pulse Rate 72 Respiratory Rate Blood Pressure Pulse Oximetry Oxygen Delivery Intake/Output Intake/Output: Intake & Output 10/29/25 10/30/25 10/31/25 11/01/25 23:59 23:59 23:59 23:59 Intake Total 1670 2160 1793.7 0 Output Total 1280 1250 1150 1800 Balance 390 910 643.7 -1800 Meds/Results Medications: Active Medications Generic Name Dose Route Start Last Admin Trade Name Freq PRN Reason Stop Dose Admin Acetaminophen 650 mg 10/26/25 23:08 11/01/25 03:38 Acetaminophen 325 Mg Tablet PO 650 mg Q6H PRN Administration Mild Pain (1-3) or Fever Acetaminophen 650 mg 10/27/25 10:34 Acetaminophen 650 Mg Suppository RECTAL Q6H PRN Mild Pain (1-3) or Fever Albuterol/Ipratropium 3 ml 10/26/25 23:08 Ipratropium 0.5 Mg/Albuterol Sulfate 2.5 Mg (Base) Ampul.Neb 3 Ml INHALATION Q6HRT PRN Shortness Of Breath Or Wheezing Atorvastatin Calcium 40 mg 10/28/25 09:00 10/31/25 09:00 Atorvastatin 40 Mg Tablet PO 40 mg DAILY MARTINEZ Administration Bisacodyl 10 mg 10/29/25 16:43 Bisacodyl 10 Mg Suppository RECTAL QAM PRN Constipation Carbidopa/Levodopa 3 tablet 10/27/25 16:00 11/01/25 05:59 Carbidopa/Levodopa 25/100 Mg Tablet PO 3 tablet 0600,1100,1600 MARTINEZ Administration Carbidopa/Levodopa 1 tablet 10/28/25 21:00 10/31/25 20:43 Carbidopa/Levodopa 25/100 Mg Cr Tablet PO 1 tablet HS MARTINEZ Administration Dexamethasone 6 mg 10/30/25 21:00 10/31/25 20:43 Dexamethasone 2 Mg Tablet PO 11/04/25 21:01 6 mg QHS MARTINEZ Administration Guaifenesin 1,200 mg 10/28/25 21:00 10/31/25 20:43 Guaifenesin 12 Hr 600 Mg Tabcr PO 1,200 mg Q12HR MARTINEZ Administration Sodium Chloride 1,000 mls @ 75 mls/hr 10/27/25 10:20 10/31/25 20:44 Normal Saline Iv IV CONT 75 mls/hr .[id number] MARTINEZ Administration Metoprolol Tartrate 25 mg 10/31/25 11:35 10/31/25 12:17 Metoprolol Tartrate 25 Mg Tablet PO 25 mg DAILY MARTINEZ Administration Ondansetron HCl 4 mg 10/26/25 23:33 Ondansetron Inj 4 Mg/2 Ml Vial IV PUSH Q6H PRN Nausea And Vomiting Pantoprazole Sodium 40 mg 10/27/25 09:00 10/31/25 09:08 Pantoprazole Sodium Iv 40 Mg Vial IV PUSH 40 mg QAM MARTINEZ Administration Radiology Results: ITS Impressions Chest X-Ray 10/27/25 07:23 IMPRESSION: 1. Worsening scattered bilateral airspace disease, left lung worse. Chest CT 10/27/25 14:23 IMPRESSION: Severe bilateral bronchopneumonia. Follow-up is recommended to assess resolution. Chest CTA 10/28/25 11:20 IMPRESSION: 1. No PE identified given respiratory motion artifact. 2. Large dense bilateral lower lobe airspace disease, consider aspiration. Venous Doppler Study 10/29/25 12:50 Impression: Negative for DVT. Modified Barium Swallow 10/30/25 14:15 IMPRESSION: Trace aspiration observed with thin barium. See speech therapist's note for complete evaluation. Labs Labs: Laboratory Results - last 24 hr 10/31/25 10/31/25 10/31/25 04:12 11:15 15:41 WBC RBC Hgb Hct MCV MCH MCHC RDW Plt Count MPV Immature Gran % (Auto) Neut % (Auto) Lymph % (Auto) Parmer % (Auto) Eos % (Auto) Baso % (Auto) Lymph # (Auto) Parmer # (Auto) Eos # (Auto) Baso # (Auto) Abs Immat Gran (auto) Absolute Neuts (auto) Absolute Nucleated RBC Total Counted Neutrophils % (Manual) Band Neutrophils % Lymphocytes % (Manual) Monocytes % (Manual) Nucleated RBC % Abs Neuts (Manual) Abs Lymphs (Manual) Abs Monocytes (Manual) Platelet Estimate Anisocytosis Ovalocytes Anne Cells Schistocytes Sodium Potassium Chloride Carbon Dioxide Anion Gap BUN Creatinine Estim Creat Clear Calc Estimated GFR Glucose POC Capillary Glucose 74 69 Calcium Phosphorus Magnesium 1.8 Total Bilirubin AST ALT Alkaline Phosphatase Total Protein Albumin 10/31/25 11/01/25 23:25 03:56 WBC 8.0 RBC 4.19 L Hgb 13.8 L Hct 40.0 L MCV 95.5 MCH 32.9 MCHC 34.5 RDW 12.4 Plt Count 154 MPV 10.0 Immature Gran % (Auto) Not Reportable Neut % (Auto) Not Reportable Lymph % (Auto) Not Reportable Parmer % (Auto) Not Reportable Eos % (Auto) Not Reportable Baso % (Auto) Not Reportable Lymph # (Auto) Not Reportable Parmer # (Auto) Not Reportable Eos # (Auto) Not Reportable Baso # (Auto) Not Reportable Abs Immat Gran (auto) Not Reportable Absolute Neuts (auto) Not Reportable Absolute Nucleated RBC Not Reportable Total Counted 100 Neutrophils % (Manual) 87 H Band Neutrophils % 5 Lymphocytes % (Manual) 6.0 L Monocytes % (Manual) 2 L Nucleated RBC % Not Reportable Abs Neuts (Manual) 7.36 H Abs Lymphs (Manual) 0.48 L Abs Monocytes (Manual) 0.16 Platelet Estimate Adequate Anisocytosis 1+ Ovalocytes 1+ Sixes Cells 1+ Schistocytes None seen Sodium 135 L Potassium 3.4 Chloride 104 Carbon Dioxide 25 Anion Gap 6 BUN 19 Creatinine 0.63 L Estim Creat Clear Calc 94 Estimated GFR > 60 Glucose 79 POC Capillary Glucose 82 Calcium 7.9 L Phosphorus 2.9 Magnesium 1.7 Total Bilirubin 1.5 H AST 40 ALT 7 Alkaline Phosphatase 61 Total Protein 5.9 L Albumin 3.0 L Quality VTE Prophylaxis VTE prophylaxis: pharmacologic ordered Hospitalist MIPS Advance Care Plan I have confirmed that the patient's Advanced Care Plan is present, code status is documented, or surrogate decision maker is listed in patient medical record.: Yes Medication Reconciliation I have utilized all available resources to obtain, update and review the patients current medications (includes all prescriptions, OTC, herbals, cannabis, and nutritional supplements).: Yes
[2025-11-01] MEDS: guaiFENesin 12 HR 600 MG TABCR 1200 MG PO (09:24)
[2025-11-01] MEDS: ATORVASTATIN 40 MG TABLET PO (09:24)
[2025-11-01] MEDS: METOPROLOL TARTRATE 25 MG TABLET PO (09:24)
[2025-11-01] MEDS: SODIUM CHLORIDE 0.9% IV 1,000 ML 75 ML IV CONT (09:30)
[2025-11-01] MEDS: PANTOPRAZOLE SODIUM IV 40 MG VIAL IV PUSH (09:32)
[2025-11-01] MEDS: POTASSIUM CHLORIDE 20 MEQ ER TABLET 40 MEQ PO (09:35)
[2025-11-01 13:36] LABS: Triglycerides 99 mg/dL (<150)
--- NOTE | 2025-11-01 14:59 | PCSTNOTE ---
Please refer to the Modified Barium Swallow Evaluation in the EMR. The patient is a 75 year old male admitted 10/26/25 with sudden onset of weakness and is covid positive. The patient has a history of Parkinson's Disease. A bedside swallow evaluation and MBS were completed 10/29/25 with recommendations NPO a with ice chips till repeat MBS could be completed in 1-2 days. A repeat MBS was completed 11/09/25 still with aspiration noted but recommended therapeutic trials with [employer]. A repeat MBS is being completed today to determine if patient swallow function is unchanged alternate means of nutrition are indicated. The patient was seated for a lateral view and presented with 5 cc/tsp of thin liquid barium via a spoon, 5 cc/tsp moderately thick liquid barium, and 1/2 tsp pudding mixed with barium paste via a spoon. Oral stages were within functional limits. Pharyngeal stage impairment: When presented initial tsp trial thin liquid barium. The bolus was viewed to pass over the tongue base and fill the vallecula prior to swallow initiation. Upon swallow the patient was viewed to have mild aspiration with the bolus passing below the cords. The patient attempted to cough and clear the bolus but was unable to eject the aspirated material. In additions the patient was viewed to have mild residual within the vallecula due to reduced lingual pressure and reduced epiglottic inversion. As Well as mild residual within the pyriform sinus cricopharyngeal dysfunction. Patient unable to clear portion of residual with a repeat swallow response. With presented 5cc/tsp amounts of moderately thick liquid barium. The patient was noted to have trace laryngeal penetration due spill over from residual remaining within the pyriform sinus following the initial swallow. The patient had moderate residual remaining in both the vallecula due to reduced tongue base retraction and reduced epiglottic inversion as well as in the pyriform sinus due to cricopharyngeal dysfunction. Finally, with trials of pudding mixed with barium paste, severe residual remained within the vallecula and pyriform sinus following the swallow. Patient was unable to clear portions of residual across consistencies with a multiple repeat swallow resulting in the residual accumulating and placing the patient at risk for aspiration for all textures. Finally reduced pharyngeal squeeze was noted by coating on the pharyngeal wall with pudding and moderately thick bolus amounts. Impressions: Severe dysphagia with aspiration of thin, penetration of moderately thick, moderate-severe residual for all consistencies within both the vallecula and pyriform sinus as well as coating on the pharyngeal wall. Recommend: 1. Strict NPO 2. Speech services for dysphagia treatment
--- NOTE | 2025-11-01 20:48 | PC.NURSE ---
This patient, Jone Nguyen, was transferred to [facility] on 11/01/25 at 2040. Personal belongings sent with patient. Report given to YENNI Cruz. Appropriate documentation sent with patient.
[2025-11-01] MEDS: CARBIDOPA/LEVODOPA 25/100 MG TABLET 1 TABLET FEED TUBE (22:06)
[2025-11-02] VITALS (14 sets, daily range): BP systolic 126–184; BP diastolic 70–96; PULSE 67–96; RESP 16–26; TEMP 36.4–36.7; O2SAT 94–98
--- NOTE | 2025-11-02 00:05 | PC.NURSE ---
Patient transferred to room 348 at 2039. Day shift received report regarding this patient approx between 4-5 pm. upset at bedside. Settled patient in and placed a purwick, set up suction, applied telemetry and adjusted the patient. Called Itzel Lozano and clarified and adjusted patients medications for parkinsons. Patient tolerated well.
[2025-11-02] MEDS: SODIUM CHLORIDE 0.9% IV 1,000 ML 75 ML IV CONT ×2 (01:45→14:34)
[2025-11-02] MEDS: ACETAMINOPHEN 325 MG TABLET 650 MG FEED TUBE ×3 (01:46→23:38)
[2025-11-02] MEDS: CARBIDOPA/LEVODOPA 25/100 MG TABLET 3 TABLET FEED TUBE ×2 (04:56→17:41)
[2025-11-02] MEDS: METOPROLOL TARTRATE 25 MG TABLET FEED TUBE (04:56)
[2025-11-02 06:01] LABS: Hematocrit 42.3 % (42.0-52.0); Hemoglobin 14.6 g/dL (14.0-18.0); Mean Corpuscular HGB Conc 34.5 g/dl (32-36); Mean Corpuscular Hemoglobin 32.4 pg (26-34); Mean Corpuscular Volume 94.0 fl (80-100); Platelet Count Result 170 k/mm3 (150-375); Red Blood Count 4.50 M/mm3 (4.6-6.20); White Blood Count 10.3 K/mm3 (4.5-10.0)
[2025-11-02 06:23] LABS: Alanine Aminotransferase 8 U/L (6-50); Albumin Level 2.7 g/dL (3.5-5.1); Alkaline Phosphatase 55 U/L (38-126); Anion Gap 4 mmol/L (4-12); Aspartate Amino Transferase 41 U/L (17-59); Bilirubin,Total 1.6 mg/dL (0.2-1.3); Blood Urea Nitrogen 20 mg/dL (9-20); Calcium 8.0 mg/dL (8.4-10.2); Carbon Dioxide 23 mmol/L (22-30); Chloride 102 mmol/L (98-107); Estimated CRCL calculation 99 ml/min; Estimated Glomerular Filt Rate > 60; Glucose 98 mg/dL (65-110); Potassium 4.2 mmol/L (3.4-5.0); Sodium 129 mmol/L (137-145); Total Protein 5.5 g/dL (6.3-8.2)
[2025-11-02] MEDS: ATORVASTATIN 40 MG TABLET FEED TUBE (10:21)
[2025-11-02] MEDS: PANTOPRAZOLE SODIUM IV 40 MG VIAL IV PUSH (10:21)
--- NOTE | 2025-11-02 10:53 | PCNFU ---
Nutrition Follow-Up Complete: Inadequate energy intake related to NPO status as evidenced by current diet orders Goal: Diet order, PO Intake Patient will continue current goal. Pt current nutrition is Jevity 1.5 at 20 ml/hr. Nutrition recommendation: Goal rate at 60 ml/hr. Last recorded weight is 77.2 kg, down from 83 kg on admit.. Bowel Motility: Last reported BM 10/22 Labs Reviewed: Cr 0.6, Alb 2.7, Na 129 Meds Noted: Lovenox, Protonix Skin: WNL Additional Notes: Patient failed multiple MBS. Spoke with Hospitalist today regarding nutrition. Plans to start tube feedings today via NGT. Recommend: Jevity 1.5 at 20 ml/hr advance by 10 ml q 4 hours to goal rate of 60 ml/hr. Flush 30 ml q 4 hours. Total Nutrition: 1990 kcal/84 gm protein/1003 ml water. Meeting 95% kcal needs at 25 kcal/kg and 100% protein needs at 1.0 gm/kg. Agree with diet orders. Monitor for diet orders, intake, tolerance, wt, labs. Follow up in 3 days.
--- NOTE | 2025-11-02 11:47 | P.PNIM_ITS ---
Assessment and Plan Assessment and Plan (1) COVID: Code(s): U07.1 - COVID-19 Status: Acute Assessment and Plan: - symptom onset: 10/25 - tested positive for COVID on: 10/26 - CXR Showed Right lung infiltrates - repeat CXR this morning showed worsening bilateral opacities, CT chest revered - Monitor cultures, MRSA negative -complete Levaquin, Flagyl, Remdesivir and Dexamethasone S/p Vanc and Tolicizumab pulmonology following (2) Pneumonia: Qualifiers: Pneumonia type: due to COVID-19 virus Qualified Code(s): U07.1 - COVID- 19; J12.82 - Pneumonia due to coronavirus disease 2019 Code(s): J18.9 - Pneumonia, unspecified organism Status: Acute Assessment and Plan: CXR showed worsening bilateral infiltrates on 10/27 continue above care (3) MATT (acute kidney injury): Code(s): N17.9 - Acute kidney failure, unspecified Status: Acute Assessment and Plan: Creatinine 1.43, BUN 51, GFR 48 upon admission on 10/26. No previous history of renal disease or CKD. - renal ultrasound resolved. Cr 1.05 from 1.43 monitor (4) Elevated glucose: Code(s): R73.09 - Other abnormal glucose Status: Acute Assessment and Plan: Elevated glucose upon admission on 10/26, blood sugar 121. No A1c on file. A1c 5.5, no diabetes (5) Parkinson disease: Qualifiers: Dyskinesia presence: unspecified whether dyskinesia Fluctuating manifestations: unspecified whether manifestations fluctuate Qualified Code(s): G20.A1 - Parkinson's disease without dyskinesia, without mention of fluctuations Code(s): G20.A1 - Parkinson's disease without dyskinesia, without mention of fluctuations Status: Chronic Assessment and Plan: History of Parkinson's disease. - continue carbidopa levodopa (6) HTN (hypertension): Qualifiers: Hypertension type: primary hypertension Qualified Code(s): I10 - Essential (primary) hypertension Code(s): I10 - Essential (primary) hypertension Status: Chronic Assessment and Plan: - chronic, currently 132/76, stable. - continue home medications - monitor (7) Dysphagia: Code(s): R13.10 - Dysphagia, unspecified Status: Acute Assessment and Plan: failed MBS x2 Inserted Dobbhoff for nutrition Will continue speech therapy Consult GI for PEG Plan Acute hypoxemic respiratory failure, resolvign s/p Airvo, now on 3 liters HFNC improving continue titrating oxygen ST for re-evaluate NPO status meanwhile, bedside swallow eval Aspiration MBS today showed silent aspiration discussed with dietitian PEG tube placement 11/[address], re-eval MBS in a few days monitor Diet: NG tube,Aspiration noted on MBS DVT Prophylaxis: Lovenox Lines/Tubes: pIV Code Status: full code Subjective Date/time seen: 11/02/25 11:47 Interval history: 75 y/o M with PMH of Parkinson's, urge incontinence, and hypertension presents here with generalized weakness. Patient is currently treated for COVID. Patient is currently on remdesivir, Decadron Levaquin, and metronidazole. Venous Doppler negative for-DVT, modified barium swallow negative for aspiration, CTA negative for PE, and blood culture still no growth. Patient was initially started on TPN butter patient refused PICC line for TPN. Patient underwent MBS today. Speech therapy recommend Therapeutic PO trials with LEG [employer]SEM[employer]ER only (Puree and Moderately thick liquid, alternate bites and sips via tsp, small amounts, repeat swallow x 2 each bite) 2. Tongue base retraction and Laryngeal adduction exercises. Repeat MBS 2 days 10/31: No acute events overnight. Continue physical therapy and speech therapy 11/01: Patient underwent repeat MBS which was worse than before. Patient underwent insertion of Dobbhoff tube for nutrition. Continue physical therapy and physical therapy. Completed antibiotic therapy. Will discuss with the family about placing PEG tube. 11/02: Patient is getting PEG tube. Family agrees with the plan. Review of Systems Review of Systems: All systems reviewed & are unremarkable except as noted in HPI and below Exam Const: General: comfortable and no acute distress Other: , male, elderly, ill-appearing HENMT: Face/Nose/Sinus: Normal nares present Mouth: Yes dry mucous membranes Eyes: General: appearance normal, both eyes and all related structures Sclera: sclerae normal Pupils: Equal, round and reactive pupils present EOM: EOMs intact bilaterally Resp: Effort & Inspection: normal respiratory effort Other: Bibasilar crackles, left worse than right. Cardio: Rate: regular rate Rhythm: regular rhythm Other: S1-S2 present without murmur, rub, ectopy GI: Other: Abdomen soft, nondistended, nontender. Normoactive bowel sounds in all quadrants. Skin: General skin exam: normal color and no rashes or lesions noted Wounds: no wounds Neuro: Cranial nerves: Yes Equal, round and reactive pupils present Other: Generalized weakness, A&O x4. Normal speech and sensation. EOM intact. Extrem: General: normal to inspection Psych: Mental Status: mental status grossly normal Other: Masklike affect. Good insight and judgment, pleasant. Objective Data Vital Signs Vital Signs: Vital Signs - 24 hr 11/01/25 12:00 11/01/25 16:00 11/01/25 16:00 Temperature 97.2 F L Pulse Rate 60 59 L 62 Respiratory Rate 22 H Blood Pressure 135/72 Pulse Oximetry 95 Oxygen Delivery 11/01/25 20:00 11/01/25 21:10 11/01/25 22:30 Temperature 97.8 F Pulse Rate 58 L 80 Respiratory Rate 20 Blood Pressure 162/91 H Pulse Oximetry 94 94 Oxygen Delivery 11/02/25 00:00 11/02/25 04:00 11/02/25 04:29 Temperature 97.8 F Pulse Rate 68 67 75 Respiratory Rate 16 Blood Pressure 178/96 H Pulse Oximetry 96 Oxygen Delivery 11/02/25 06:20 11/02/25 08:00 11/02/25 10:15 Temperature Pulse Rate 76 Respiratory Rate Blood Pressure 184/93 H Pulse Oximetry Oxygen Delivery Room Air 11/02/25 10:58 Temperature Pulse Rate Respiratory Rate Blood Pressure 157/82 H Pulse Oximetry Oxygen Delivery Intake/Output Intake/Output: Intake & Output 10/30/25 10/31/25 11/01/25 11/02/25 23:59 23:59 23:59 23:59 Intake Total 2160 1793.7 1957.5 Output Total 1250 1150 2825 950 Balance 910 643.7 -867.5 -950 Meds/Results Medications: Active Medications Generic Name Dose Route Start Last Admin Trade Name Freq PRN Reason Stop Dose Admin Acetaminophen 650 mg 10/27/25 10:34 Acetaminophen 650 Mg Suppository RECTAL Q6H PRN Mild Pain (1-3) or Fever Acetaminophen 650 mg 11/01/25 18:51 11/02/25 01:46 Acetaminophen 325 Mg Tablet FEED TUBE 650 mg Q6H PRN Administration Mild Pain (1-3) or Fever Albuterol/Ipratropium 3 ml 10/26/25 23:08 Ipratropium 0.5 Mg/Albuterol Sulfate 2.5 Mg (Base) Ampul.Neb 3 Ml INHALATION Q6HRT PRN Shortness Of Breath Or Wheezing Atorvastatin Calcium 40 mg 11/02/25 09:00 11/02/25 10:21 Atorvastatin 40 Mg Tablet FEED TUBE 40 mg DAILY MARTINEZ Administration Bisacodyl 10 mg 10/29/25 16:43 Bisacodyl 10 Mg Suppository RECTAL QAM PRN Constipation Carbidopa/Levodopa 1 tablet 10/28/25 21:00 11/01/25 22:32 Carbidopa/Levodopa 25/100 Mg Cr Tablet PO Not Given On Hold: 11/01/25 21:58 HS MARTINEZ Carbidopa/Levodopa 3 tablet 11/02/25 06:00 11/02/25 04:56 Carbidopa/Levodopa 25/100 Mg Tablet FEED TUBE 3 tablet 0600,1100,1600 MARTINEZ Administration Carbidopa/Levodopa 1 tablet 11/01/25 22:00 11/01/25 22:06 Carbidopa/Levodopa 25/100 Mg Tablet FEED TUBE 1 tablet HS MARTINEZ Administration Dexamethasone 6 mg 11/01/25 21:00 11/01/25 22:07 Dexamethasone 2 Mg Tablet FEED TUBE 11/04/25 21:01 6 mg QHS MARTINEZ Administration Hydralazine HCl 10 mg 11/02/25 06:10 11/02/25 06:19 Hydralazine Hcl 20 Mg/Ml Vial IV PUSH 10 mg Q4HR PRN Administration Blood Pressure - High Sodium Chloride 1,000 mls @ 75 mls/hr 10/27/25 10:20 11/02/25 01:45 Normal Saline Iv IV CONT 75 mls/hr .[id number] MARTINEZ Administration Metoprolol Tartrate 25 mg 11/02/25 09:00 11/02/25 04:56 Metoprolol Tartrate 25 Mg Tablet FEED TUBE 25 mg DAILY MARTINEZ Administration Ondansetron HCl 4 mg 10/26/25 23:33 Ondansetron Inj 4 Mg/2 Ml Vial IV PUSH Q6H PRN Nausea And Vomiting Pantoprazole Sodium 40 mg 10/27/25 09:00 11/02/25 10:21 Pantoprazole Sodium Iv 40 Mg Vial IV PUSH 40 mg QAM MARTINEZ Administration Polyethylene Glycol 17 gm 11/01/25 18:47 Polyethylene Glycol 3350 17 Gm Powd.Pack FEED TUBE QAM PRN Constipation Radiology Results: ITS Impressions Chest X-Ray 10/27/25 07:23 IMPRESSION: 1. Worsening scattered bilateral airspace disease, left lung worse. Chest CT 10/27/25 14:23 IMPRESSION: Severe bilateral bronchopneumonia. Follow-up is recommended to assess resolution. Chest CTA 10/28/25 11:20 IMPRESSION: 1. No PE identified given respiratory motion artifact. 2. Large dense bilateral lower lobe airspace disease, consider aspiration. Venous Doppler Study 10/29/25 12:50 Impression: Negative for DVT. Modified Barium Swallow 11/01/25 14:42 IMPRESSION: Aspiration observed. Significant residual persisted corresponding to area of the superior most portion of the esophagus. See speech therapist's note for complete evaluation. Tube Placement 11/01/25 15:02 IMPRESSION: Dobbhoff placement as above with no immediate complication. Labs Labs: Laboratory Results - last 24 hr 11/01/25 11/01/25 11/01/25 11:49 13:06 17:22 WBC RBC Hgb Hct MCV MCH MCHC RDW Plt Count MPV Sodium Potassium Chloride Carbon Dioxide Anion Gap BUN Creatinine Estim Creat Clear Calc Estimated GFR Glucose POC Capillary Glucose 100 109 H Calcium Phosphorus Total Bilirubin AST ALT Alkaline Phosphatase Total Protein Albumin Triglycerides 99 11/02/25 11/02/25 01:10 05:55 WBC 10.3 H RBC 4.50 L Hgb 14.6 Hct 42.3 MCV 94.0 MCH 32.4 MCHC 34.5 RDW 12.2 Plt Count 170 MPV 9.5 Sodium 129 L Potassium 4.2 Chloride 102 Carbon Dioxide 23 Anion Gap 4 BUN 20 Creatinine 0.60 L Estim Creat Clear Calc 99 Estimated GFR > 60 Glucose 98 POC Capillary Glucose 112 H Calcium 8.0 L Phosphorus 3.3 Total Bilirubin 1.6 H AST 41 ALT 8 Alkaline Phosphatase 55 Total Protein 5.5 L Albumin 2.7 L Triglycerides Quality VTE Prophylaxis VTE prophylaxis: pharmacologic ordered Hospitalist [facility] Advance Care Plan I have confirmed that the patient's Advanced Care Plan is present, code status is documented, or surrogate decision maker is listed in patient medical record.: Yes Medication Reconciliation I have utilized all available resources to obtain, update and review the patients current medications (includes all prescriptions, OTC, herbals, cannabis, and nutritional supplements).: Yes
--- NOTE | 2025-11-02 14:21 | WPDGICN ---
Assessment and Plan Assessment and plan (1) Dysphagia: Code(s): R13.10 - Dysphagia, unspecified Status: Acute Assessment and Plan: he has underlying Parkinson and he already has been on special diet and preventive measures to prevent aspiration this time with respiratory failure and covid pneumonia with high risk for aspiration and has not been eating DH tube place yesterday but has not been used yet he will need intermediate accountant nutrition and plan is to proceed with PEG placement, and patient both agreeable (2) COVID: Code(s): U07.1 - COVID-19 Status: Acute Assessment and Plan: treated (3) Hypoxic respiratory failure: Code(s): J96.91 - Respiratory failure, unspecified with hypoxia Status: Acute Assessment and Plan: improved (4) MATT (acute kidney injury): Code(s): N17.9 - Acute kidney failure, unspecified Status: Acute (5) Weakness: Code(s): R53.1 - Weakness Status: Acute (6) Malnutrition: Code(s): E46 - Unspecified protein-calorie malnutrition Status: Acute (7) Parkinson disease: Qualifiers: Dyskinesia presence: unspecified whether dyskinesia Fluctuating manifestations: unspecified whether manifestations fluctuate Qualified Code(s): G20.A1 - Parkinson's disease without dyskinesia, without mention of fluctuations Code(s): G20.A1 - Parkinson's disease without dyskinesia, without mention of fluctuations Status: Chronic GI Consult Note Consult date/time: 11/02/25 14:21 Reason for consult: dysphagia, covid pneumonia HPI: Jone Nguyen is a 75 year old male with history of Parkinson's, urge incontinence, and hypertension admitted to hospital 10/26/25 with generalized weakness, also nausea, vomiting, malodorous urine and diagnosed with COVID pneumonia, also MATT, required oxygen, treated with remdesevir, Decadron Levaquin, and metronidazole. Venous Doppler negative for-DVT, modified barium swallow eventually showed that risk for aspiration. CTA negative for PE.Patient was initially started on TPN but patient refused PICC line for TPN. says that for over a year patient has been using chin tuck position to prevent from choking but since this hospitalization difficulty swallowing. is agreeable to have PEG placement now. Review of Systems Constitutional: Constitutional: Reports weakness Eyes: Eyes: Reports no additional eye complaints ENT: Reports Normal hearing present Cardiovascular: Cardiovascular: Denies chest pain Respiratory: Respiratory: Reports chest congestion and Reports cough Gastrointestinal: Gastrointestinal: Reports no additional gastrointestinal complaints Genitourinary: Genitourinary: Denies dysuria Musculoskeletal: Musculoskeletal: Denies neck pain Integumentary/Breasts: Skin/Breast: Denies rash Neurologic: Comments: parkinson's Psychiatric: Psychiatric: Denies behavioral changes [facility] Past Medical History Medical History (Updated 11/02/25 @ 14:26 by Guido Palmer MD) Malnutrition HTN (hypertension) Urge incontinence Parkinson disease Family History Family History (Updated 10/27/25 @ 02:25 by Charlotte Fournier RN) Mother Breast cancer Social History Social History Smoking status: Never smoker Second hand tobacco smoke exposure: No Alcohol intake: never Substance use: never Lack of Transportation: No Lack of Food: Never True Current Housing: I Have Housing Concerned About Future Housing: No Difficulty Paying Gas/Electric Bills: No Difficulty Paying for Meds: No Currently Unemployed: No Education: Master's Degree or Higher Difficulty w/ Childcare or Family Care: No Spiritual care concerns: No Meds Home Medications and Allergies Home Medications ?Medication ?Instructions ?Recorded ?Confirmed ?Type atorvastatin 40 mg tablet 40 mg PO DAILY 10/26/25 10/27/25 History carbidopa 25 mg-levodopa 100 mg 3 tablet PO TID 10/26/25 10/27/25 History tablet carbidopa ER 25 mg-levodopa 100 mg 1 tablet PO HS 10/26/25 10/27/25 History tablet,extended release metoprolol succinate 25 mg 25 mg PO DAILY 10/26/25 10/27/25 History tablet,extended release 24 hr mirabegron 25 mg tablet,extended 25 mg PO DAILY 10/26/25 10/27/25 History release 24 hr solifenacin 5 mg tablet 5 mg PO DAILY 10/26/25 10/27/25 History Allergies Allergy/AdvReac Type Severity Reaction Status Date / Time shellfish derived Allergy Hives Verified 10/27/25 01:50 Vital Signs Vital Signs - 24 hr 11/01/25 16:00 11/01/25 16:00 11/01/25 20:00 Temperature 97.2 F L Pulse Rate 59 L 62 58 L Respiratory Rate 22 H Blood Pressure 135/72 Pulse Oximetry 95 Oxygen Delivery 11/01/25 21:10 11/01/25 22:30 11/02/25 00:00 Temperature 97.8 F Pulse Rate 80 68 Respiratory Rate 20 Blood Pressure 162/91 H Pulse Oximetry 94 94 Oxygen Delivery 11/02/25 04:00 11/02/25 04:29 11/02/25 06:20 Temperature 97.8 F Pulse Rate 67 75 Respiratory Rate 16 Blood Pressure 178/96 H 184/93 H Pulse Oximetry 96 Oxygen Delivery 11/02/25 08:00 11/02/25 10:15 11/02/25 10:58 Temperature Pulse Rate 76 Respiratory Rate Blood Pressure 157/82 H Pulse Oximetry Oxygen Delivery Room Air 11/02/25 12:00 Temperature Pulse Rate 96 Respiratory Rate Blood Pressure Pulse Oximetry Oxygen Delivery Exam Const: General: comfortable and no acute distress Other: , male, elderly, ill-appearing HENMT: Face/Nose/Sinus: Normal nares present Mouth: Yes dry mucous membranes Eyes: General: appearance normal, both eyes and all related structures Sclera: sclerae normal Pupils: Equal, round and reactive pupils present EOM: EOMs intact bilaterally Resp: Effort & Inspection: normal respiratory effort Other: Bibasilar crackles, left worse than right. Cardio: Rate: regular rate Rhythm: regular rhythm Other: S1-S2 present without murmur, rub, ectopy GI: Other: Abdomen soft, nondistended, nontender. Normoactive bowel sounds in all quadrants. Skin: General skin exam: normal color and no rashes or lesions noted Wounds: no wounds Neuro: Cranial nerves: Yes Equal, round and reactive pupils present Other: Generalized weakness, A&O x4. Normal speech and sensation. EOM intact. Extrem: General: normal to inspection Psych: Mental Status: mental status grossly normal Other: Masklike affect. Good insight and judgment, pleasant. Results Labs 11/02/25 05:55 11/02/25 05:55 Labs: Short CBC 11/02/25 Range/Units 05:55 WBC 10.3 H (4.5-10.0) K/mm3 Hgb 14.6 (14.0-18.0) g/dL Hct 42.3 (42.0-52.0) % Plt Count 170 (150-375) k/mm3 BMP 11/02/25 05:55 Sodium 129 L Potassium 4.2 Chloride 102 Carbon Dioxide 23 BUN 20 Creatinine 0.60 L Glucose 98 Calcium 8.0 L Liver Function 11/02/25 Range/Units 05:55 Total Bilirubin 1.6 H (0.2-1.3) mg/dL AST 41 (17-59) U/L ALT 8 (6-50) U/L Alkaline Phosphatase 55 (38-126) U/L Albumin 2.7 L (3.5-5.1) g/dL
--- NOTE | 2025-11-02 15:06 | PC.NURSE ---
pt taken down to GI lab
--- NOTE | 2025-11-02 15:07 | WPDANESEPPF ---
Anes - Initial Pre Proc Eval Procedure: Operation Date: 11/02/25 15:15 Proposed Procedures p Esophagogastroduodenoscopy and PEG - Lucas Lane MD Date/Time: 11/02/25 15:07 Surgeon: Nancy Henriquez DO Pre Op Diagnosis: COVID PNA, weakness Patient Data Age: 75 Gender: M Height: 1.83 m Weight: 77.2 kg Last Vital Signs Temp 97.8 F 11/02/25 04:29 Pulse 96 11/02/25 12:00 Resp 16 11/02/25 04:29 BP 157/82 H 11/02/25 10:58 Pulse Ox 96 11/02/25 04:29 O2 Del Method Room Air 11/02/25 10:15 O2 Flow Rate 1 10/30/25 12:00 FiO2 50 10/28/25 11:08 Allergies Allergy/AdvReac Type Severity Reaction Status Date / Time shellfish derived Allergy Hives Verified 10/27/25 01:50 Home Medications ?Medication ?Instructions ?Recorded ?Confirmed ?Type atorvastatin 40 mg tablet 40 mg PO DAILY 10/26/25 10/27/25 History carbidopa 25 mg-levodopa 100 mg 3 tablet PO TID 10/26/25 10/27/25 History tablet carbidopa ER 25 mg-levodopa 100 mg 1 tablet PO HS 10/26/25 10/27/25 History tablet,extended release metoprolol succinate 25 mg 25 mg PO DAILY 10/26/25 10/27/25 History tablet,extended release 24 hr mirabegron 25 mg tablet,extended 25 mg PO DAILY 10/26/25 10/27/25 History release 24 hr solifenacin 5 mg tablet 5 mg PO DAILY 10/26/25 10/27/25 History Laboratory Tests 11/01/25 11/02/25 11/02/25 17:22 01:10 05:55 WBC 10.3 H K/mm3 (4.5-10.0) RBC 4.50 L M/mm3 (4.6-6.20) Hgb 14.6 g/dL (14.0-18.0) Hct 42.3 % (42.0-52.0) MCV 94.0 fl (80-100) MCH 32.4 pg (26-34) MCHC 34.5 g/dl (32-36) RDW 12.2 % (11.5-14.5) Plt Count 170 k/mm3 (150-375) MPV 9.5 fl (7.4-10.4) Sodium 129 L mmol/L (137-145) Potassium 4.2 mmol/L (3.4-5.0) Chloride 102 mmol/L (98-107) Carbon Dioxide 23 mmol/L (22-30) Anion Gap 4 mmol/L (4-12) BUN 20 mg/dL (9-20) Creatinine 0.60 L mg/dL (0.7-1.3) Estim Creat Clear Calc 99 ml/min Estimated GFR > 60 (59 - ) Glucose 98 mg/dL (65-110) POC Capillary Glucose 109 H mg/dl 112 H mg/dl (65-105) (65-105) Calcium 8.0 L mg/dL (8.4-10.2) Phosphorus 3.3 mg/dL (2.5-4.5) Total Bilirubin 1.6 H mg/dL (0.2-1.3) AST 41 U/L (17-59) ALT 8 U/L (6-50) Alkaline Phosphatase 55 U/L (38-126) Total Protein 5.5 L g/dL (6.3-8.2) Albumin 2.7 L g/dL (3.5-5.1) 11/02/25 13:45 WBC RBC Hgb Hct MCV MCH MCHC RDW Plt Count MPV Sodium Potassium Chloride Carbon Dioxide Anion Gap BUN Creatinine Estim Creat Clear Calc Estimated GFR Glucose POC Capillary Glucose 82 mg/dl (65-105) Calcium Phosphorus Total Bilirubin AST ALT Alkaline Phosphatase Total Protein Albumin Patient hx anesthesia problems: none Family hx anesthesia problems: none Results Review: All pre-operative results and documents have been reviewed as part of the pre-operative evaluation. [facility] Past Medical History Medical History (Updated 11/02/25 @ 14:26 by Guido Palmer MD) Malnutrition HTN (hypertension) Urge incontinence Parkinson disease Family History Family History Mother Breast cancer Social History Social History Smoking status: Never smoker Second hand tobacco smoke exposure: No Alcohol intake: never Substance use: never Lack of Transportation: No Lack of Food: Never True Current Housing: I Have Housing Concerned About Future Housing: No Difficulty Paying Gas/Electric Bills: No Difficulty Paying for Meds: No Currently Unemployed: No Education: Master's Degree or Higher Difficulty w/ Childcare or Family Care: No Spiritual care concerns: No Anes - Eval Final PreProcedure Day of Procedure 11/02/25 15:07 Patient weight: normal Lungs: normal air movement Airway: Mallampati scale class II Neurological: alert and oriented Last oral intake: >/= 8 hours ASA classification: IV Emergent: no Anesthetic plan: proceed Anesthesia type and monitoring: general GIVS and standard monitoring Results Review: All pre-operative results and documents have been reviewed as part of the pre-operative evaluation.Covid pos, dysphagia, in need for PEg. Informed Consent: The patient's anesthetic plan and its attendant risks and benefits were discussed with the patient/family/POA. Questions were solicited and answers provided to the satisfaction of the patient/family/POA.
[2025-11-02] MEDS: ceFAZolin 1 GM in SODIUM CHLORIDE 0.9% IV 50 ML 100 ML IVPB (15:15)
[2025-11-02] MEDS: BENZOCAINE (*SP) 60 ML SPRAY CAN (HURRICAINE) 1 SPRAY MUCOUS MEM (15:28)
[2025-11-02] MEDS: LACTATED RINGERS 1,000 ML 150 ML IV CONT (15:30)
--- NOTE | 2025-11-02 15:49 | WPDGIPROGNO ---
Progress Note: A&P Assessment and Plan (1) Dysphagia: Code(s): R13.10 - Dysphagia, unspecified Status: Acute Plan See EGD report. PEG placed. Can be used for feeding and medication, keep usual enteral feeding rate . Subjective Date/time seen: 11/02/25 15:49 Objective Data Vital Signs Vital Signs: Vital Signs - 24 hr 11/01/25 16:00 11/01/25 16:00 11/01/25 20:00 Temperature 97.2 F L Pulse Rate 59 L 62 58 L Respiratory Rate 22 H Blood Pressure 135/72 Pulse Oximetry 95 Oxygen Delivery 11/01/25 21:10 11/01/25 22:30 11/02/25 00:00 Temperature 97.8 F Pulse Rate 80 68 Respiratory Rate 20 Blood Pressure 162/91 H Pulse Oximetry 94 94 Oxygen Delivery 11/02/25 04:00 11/02/25 04:29 11/02/25 06:20 Temperature 97.8 F Pulse Rate 67 75 Respiratory Rate 16 Blood Pressure 178/96 H 184/93 H Pulse Oximetry 96 Oxygen Delivery 11/02/25 08:00 11/02/25 10:15 11/02/25 10:58 Temperature Pulse Rate 76 Respiratory Rate Blood Pressure 157/82 H Pulse Oximetry Oxygen Delivery Room Air 11/02/25 12:00 11/02/25 15:09 Temperature 97.8 F Pulse Rate 96 84 Respiratory Rate 20 Blood Pressure 126/87 Pulse Oximetry 97 Oxygen Delivery Room Air Intake/Output Intake/Output: Intake & Output 10/30/25 10/31/25 11/01/25 11/02/25 23:59 23:59 23:59 23:59 Intake Total 2160 1793.7 1957.5 1001.3 Output Total 1250 1150 2825 950 Balance 910 643.7 -867.5 51.3 Meds/Results Medications: Active Medications Generic Name Dose Route Start Last Admin Trade Name Freq PRN Reason Stop Dose Admin Acetaminophen 650 mg 10/27/25 10:34 Acetaminophen 650 Mg Suppository RECTAL Q6H PRN Mild Pain (1-3) or Fever Acetaminophen 650 mg 11/01/25 18:51 11/02/25 01:46 Acetaminophen 325 Mg Tablet FEED TUBE 650 mg Q6H PRN Administration Mild Pain (1-3) or Fever Albuterol/Ipratropium 3 ml 10/26/25 23:08 Ipratropium 0.5 Mg/Albuterol Sulfate 2.5 Mg (Base) Ampul.Neb 3 Ml INHALATION Q6HRT PRN Shortness Of Breath Or Wheezing Atorvastatin Calcium 40 mg 11/02/25 09:00 11/02/25 10:21 Atorvastatin 40 Mg Tablet FEED TUBE 40 mg DAILY MARTINZE Administration Bisacodyl 10 mg 10/29/25 16:43 Bisacodyl 10 Mg Suppository RECTAL QAM PRN Constipation Carbidopa/Levodopa 1 tablet 10/28/25 21:00 11/01/25 22:32 Carbidopa/Levodopa 25/100 Mg Cr Tablet PO Not Given On Hold: 11/01/25 21:58 HS MARTINEZ Carbidopa/Levodopa 3 tablet 11/02/25 06:00 11/02/25 13:05 Carbidopa/Levodopa 25/100 Mg Tablet FEED TUBE Not Given 0600,1100,1600 MARTINEZ Carbidopa/Levodopa 1 tablet 11/01/25 22:00 11/01/25 22:06 Carbidopa/Levodopa 25/100 Mg Tablet FEED TUBE 1 tablet HS MARTINEZ Administration Dexamethasone 6 mg 11/01/25 21:00 11/01/25 22:07 Dexamethasone 2 Mg Tablet FEED TUBE 11/04/25 21:01 6 mg QHS MARTINEZ Administration Hydralazine HCl 10 mg 11/02/25 06:10 11/02/25 06:19 Hydralazine Hcl 20 Mg/Ml Vial IV PUSH 10 mg Q4HR PRN Administration Blood Pressure - High Sodium Chloride 1,000 mls @ 75 mls/hr 10/27/25 10:20 11/02/25 14:34 Normal Saline Iv IV CONT 75 mls/hr .[id number] MARTINEZ Administration Lactated Ringer's 1,000 mls @ 150 mls/hr 11/02/25 15:30 11/02/25 15:46 Lr - Lactated Ringers Iv IV CONT 150 mls/hr .[id number] MARTINEZ Infusion Metoprolol Tartrate 25 mg 11/02/25 09:00 11/02/25 04:56 Metoprolol Tartrate 25 Mg Tablet FEED TUBE 25 mg DAILY MARTINEZ Administration Ondansetron HCl 4 mg 10/26/25 23:33 Ondansetron Inj 4 Mg/2 Ml Vial IV PUSH Q6H PRN Nausea And Vomiting Pantoprazole Sodium 40 mg 10/27/25 09:00 11/02/25 10:21 Pantoprazole Sodium Iv 40 Mg Vial IV PUSH 40 mg QAM MARTINEZ Administration Polyethylene Glycol 17 gm 11/01/25 18:47 Polyethylene Glycol 3350 17 Gm Powd.Pack FEED TUBE QAM PRN Constipation Radiology Results: ITS Impressions Chest X-Ray 10/27/25 07:23 IMPRESSION: 1. Worsening scattered bilateral airspace disease, left lung worse. Chest CT 10/27/25 14:23 IMPRESSION: Severe bilateral bronchopneumonia. Follow-up is recommended to assess resolution. Chest CTA 10/28/25 11:20 IMPRESSION: 1. No PE identified given respiratory motion artifact. 2. Large dense bilateral lower lobe airspace disease, consider aspiration. Venous Doppler Study 10/29/25 12:50 Impression: Negative for DVT. Modified Barium Swallow 11/01/25 14:42 IMPRESSION: Aspiration observed. Significant residual persisted corresponding to area of the superior most portion of the esophagus. See speech therapist's note for complete evaluation. Tube Placement 11/01/25 15:02 IMPRESSION: Dobbhoff placement as above with no immediate complication. Labs Labs: Laboratory Results - last 24 hr 11/01/25 11/02/25 11/02/25 17:22 01:10 05:55 WBC 10.3 H RBC 4.50 L Hgb 14.6 Hct 42.3 MCV 94.0 MCH 32.4 MCHC 34.5 RDW 12.2 Plt Count 170 MPV 9.5 Sodium 129 L Potassium 4.2 Chloride 102 Carbon Dioxide 23 Anion Gap 4 BUN 20 Creatinine 0.60 L Estim Creat Clear Calc 99 Estimated GFR > 60 Glucose 98 POC Capillary Glucose 109 H 112 H Calcium 8.0 L Phosphorus 3.3 Total Bilirubin 1.6 H AST 41 ALT 8 Alkaline Phosphatase 55 Total Protein 5.5 L Albumin 2.7 L 11/02/25 13:45 WBC RBC Hgb Hct MCV MCH MCHC RDW Plt Count MPV Sodium Potassium Chloride Carbon Dioxide Anion Gap BUN Creatinine Estim Creat Clear Calc Estimated GFR Glucose POC Capillary Glucose 82 Calcium Phosphorus Total Bilirubin AST ALT Alkaline Phosphatase Total Protein Albumin
--- NOTE | 2025-11-02 16:20 | SUR.OPER ---
Report called to 3rd medical RN pt transferred back to room at 1620.
--- NOTE | 2025-11-02 16:43 | PC.NURSE ---
pt returned from GI lab after procedure
[2025-11-02] MEDS: DEXTROSE 5%/0.45% SOD CHL 1,000 ML 70 ML IV CONT (19:33)
[2025-11-02] MEDS: CARBIDOPA/LEVODOPA 25/100 MG TABLET 1 TABLET FEED TUBE (20:33)
[2025-11-03] VITALS (9 sets, daily range): BP systolic 123–154; BP diastolic 56–70; PULSE 58–91; RESP 14–18; TEMP 36.3–37.1; O2SAT 94–100
[2025-11-03 05:23] LABS: Hematocrit 41.2 % (42.0-52.0); Hemoglobin 14.1 g/dL (14.0-18.0); Mean Corpuscular HGB Conc 34.2 g/dl (32-36); Mean Corpuscular Hemoglobin 32.3 pg (26-34); Mean Corpuscular Volume 94.3 fl (80-100); Platelet Count Result 180 k/mm3 (150-375); Red Blood Count 4.37 M/mm3 (4.6-6.20); White Blood Count 11.5 K/mm3 (4.5-10.0)
[2025-11-03] MEDS: ACETAMINOPHEN 325 MG TABLET 650 MG FEED TUBE ×2 (05:24→20:09)
[2025-11-03] MEDS: CARBIDOPA/LEVODOPA 25/100 MG TABLET 3 TABLET FEED TUBE ×3 (05:24→16:15)
[2025-11-03 05:36] LABS: Alanine Aminotransferase 9 U/L (6-50); Albumin Level 2.7 g/dL (3.5-5.1); Alkaline Phosphatase 52 U/L (38-126); Anion Gap 2 mmol/L (4-12); Aspartate Amino Transferase 39 U/L (17-59); Bilirubin,Total 1.4 mg/dL (0.2-1.3); Blood Urea Nitrogen 23 mg/dL (9-20); Calcium 8.0 mg/dL (8.4-10.2); Carbon Dioxide 25 mmol/L (22-30); Chloride 103 mmol/L (98-107); Estimated CRCL calculation 80 ml/min; Estimated Glomerular Filt Rate > 60; Glucose 138 mg/dL (65-110); Potassium 3.7 mmol/L (3.4-5.0); Sodium 130 mmol/L (137-145); Total Protein 5.4 g/dL (6.3-8.2)
--- NOTE | 2025-11-03 06:52 | PC.NURSE ---
0200: advanced to 40cc/hr (residual 160) 0650: residual 340 (feeding put on hold)
[2025-11-03] MEDS: METOPROLOL TARTRATE 25 MG TABLET FEED TUBE (09:14)
[2025-11-03] MEDS: ATORVASTATIN 40 MG TABLET FEED TUBE (09:14)
[2025-11-03] MEDS: PANTOPRAZOLE SODIUM IV 40 MG VIAL IV PUSH (09:14)
[2025-11-03] MEDS: DEXTROSE 5%/0.45% SOD CHL 1,000 ML 70 ML IV CONT (09:21)
[2025-11-03 12:57] LABS: Triglycerides 91 mg/dL (<150)
--- NOTE | 2025-11-03 15:24 | PM.IMPN2 ---
Assessment and Plan Assessment and Plan (1) COVID: Code(s): U07.1 - COVID-19 Status: Acute Assessment and Plan: - symptom onset: 10/25 - tested positive for COVID on: 10/26 - CXR Showed Right lung infiltrates - repeat CXR this morning showed worsening bilateral opacities, CT chest revered - Monitor cultures, MRSA negative -complete Levaquin, Flagyl, Remdesivir and Dexamethasone S/p Vanc and Tolicizumab pulmonology following (2) Pneumonia: Qualifiers: Pneumonia type: due to COVID-19 virus Qualified Code(s): U07.1 - COVID-19; J12.82 - Pneumonia due to coronavirus disease 2019 Code(s): J18.9 - Pneumonia, unspecified organism Status: Acute Assessment and Plan: CXR showed worsening bilateral infiltrates on 10/27 continue above care (3) MATT (acute kidney injury): Code(s): N17.9 - Acute kidney failure, unspecified Status: Acute Assessment and Plan: Creatinine 1.43, BUN 51, GFR 48 upon admission on 10/26. No previous history of renal disease or CKD. - renal ultrasound resolved. Cr 1.05 from 1.43 monitor (4) Elevated glucose: Code(s): R73.09 - Other abnormal glucose Status: Acute Assessment and Plan: Elevated glucose upon admission on 10/26, blood sugar 121. No A1c on file. A1c 5.5, no diabetes (5) Parkinson disease: Qualifiers: Dyskinesia presence: unspecified whether dyskinesia Fluctuating manifestations: unspecified whether manifestations fluctuate Qualified Code(s): G20.A1 - Parkinson's disease without dyskinesia, without mention of fluctuations Code(s): G20.A1 - Parkinson's disease without dyskinesia, without mention of fluctuations Status: Chronic Assessment and Plan: History of Parkinson's disease. - continue carbidopa levodopa (6) HTN (hypertension): Qualifiers: Hypertension type: primary hypertension Qualified Code(s): I10 - Essential (primary) hypertension Code(s): I10 - Essential (primary) hypertension Status: Chronic Assessment and Plan: - continue home medications - monitor (7) Dysphagia: Code(s): R13.10 - Dysphagia, unspecified Status: Acute Assessment and Plan: failed MBS x2 Inserted Dobbhoff for nutrition Will continue speech therapy Status post PEG tube placement 11/02/2025 Tube feeds restarted Arrangements for tube feeds Plan Acute hypoxemic respiratory failure, resolvign s/p Airvo, now on room air improving continue titrating oxygen Diet: NG tube,Aspiration noted on MBS DVT Prophylaxis: Lovenox Lines/Tubes: pIV Code Status: full code Subjective Date/time seen: 11/03/25 15:24 Interval history: 75 y/o M with PMH of Parkinson's, urge incontinence, and hypertension presents here with generalized weakness. Patient is currently treated for COVID. Patient is currently on remdesivir, Decadron Levaquin, and metronidazole. Venous Doppler negative for-DVT, modified barium swallow negative for aspiration, CTA negative for PE, and blood culture still no growth. Patient was initially started on TPN butter patient refused PICC line for TPN. Patient underwent MBS today. Speech therapy recommend Therapeutic PO trials with FLOOR SCRAPER only (Puree and Moderately thick liquid, alternate bites and sips via tsp, small amounts, repeat swallow x 2 each bite) 2. Tongue base retraction and Laryngeal adduction exercises. Repeat MBS 2 days 10/31: No acute events overnight. Continue physical therapy and speech therapy 11/01: Patient underwent repeat MBS which was worse than before. Patient underwent insertion of Dobbhoff tube for nutrition. Continue physical therapy and physical therapy. Completed antibiotic therapy. Will discuss with the family about placing PEG tube. 11/02: Patient is getting PEG tube. Family agrees with the plan. 11/03: Overnight events. Feeling stronger. Had high residual and hence tube feeds rate lowered down to 20. No chest pain shortness of breath or cough Review of Systems Review of Systems: All systems reviewed & are unremarkable except as noted in HPI and below Exam Const: General: comfortable and no acute distress Other: , male, elderly, ill-appearing HENMT: Face/Nose/Sinus: Normal nares present Mouth: Yes dry mucous membranes Eyes: General: appearance normal, both eyes and all related structures Sclera: sclerae normal Pupils: Equal, round and reactive pupils present EOM: EOMs intact bilaterally Resp: Effort & Inspection: normal respiratory effort Other: Diminished breath sounds bilaterally no respiratory distress Cardio: Rate: regular rate Rhythm: regular rhythm Other: S1-S2 present without murmur, rub, ectopy GI: Other: Abdomen soft, nondistended, nontender. Normoactive bowel sounds in all quadrants. G-tube in place Skin: General skin exam: normal color and no rashes or lesions noted Wounds: no wounds Neuro: Cranial nerves: Yes Equal, round and reactive pupils present Other: Generalized weakness, A&O x4. Normal speech and sensation. EOM intact. Extrem: General: normal to inspection Psych: Mental Status: mental status grossly normal Other: Masklike affect. Good insight and judgment, pleasant. Objective Data Vital Signs Vital Signs: Vital Signs - 24 hr 11/02/25 15:46 11/02/25 15:56 11/02/25 16:00 Temperature Pulse Rate 80 72 81 Respiratory Rate 16 26 H Blood Pressure 126/70 138/80 Pulse Oximetry 98 98 Oxygen Delivery Nasal Cannula Nasal Cannula Oxygen Flow Rate 4 4 11/02/25 16:06 11/02/25 17:20 11/02/25 20:50 Temperature 97.6 F 98.1 F Pulse Rate 80 84 75 Respiratory Rate 26 H 18 16 Blood Pressure 144/85 H 150/90 H 133/70 Pulse Oximetry 96 94 97 Oxygen Delivery Room Air Oxygen Flow Rate 11/03/25 00:00 11/03/25 05:41 11/03/25 09:14 Temperature 97.7 F Pulse Rate 91 75 75 Respiratory Rate 16 Blood Pressure 129/65 Pulse Oximetry 94 Oxygen Delivery Oxygen Flow Rate 11/03/25 14:55 Temperature 97.3 F L Pulse Rate 90 Respiratory Rate 14 Blood Pressure 123/70 Pulse Oximetry 95 Oxygen Delivery Oxygen Flow Rate Intake/Output Intake/Output: Intake & Output 10/31/25 11/01/25 11/02/25 11/03/25 23:59 23:59 23:59 23:59 Intake Total 1793.7 1957.5 1561.3 966 Output Total 1150 2825 950 Balance 643.7 -867.5 611.3 966 Meds/Results Medications: Active Medications Generic Name Dose Route Start Last Admin Trade Name Freq PRN Reason Stop Dose Admin Acetaminophen 650 mg 10/27/25 10:34 Acetaminophen 650 Mg Suppository RECTAL Q6H PRN Mild Pain (1-3) or Fever Acetaminophen 650 mg 11/01/25 18:51 11/03/25 05:24 Acetaminophen 325 Mg Tablet FEED TUBE 650 mg Q6H PRN Administration Mild Pain (1-3) or Fever Albuterol/Ipratropium 3 ml 10/26/25 23:08 Ipratropium 0.5 Mg/Albuterol Sulfate 2.5 Mg (Base) Ampul.Neb 3 Ml INHALATION Q6HRT PRN Shortness Of Breath Or Wheezing Atorvastatin Calcium 40 mg 11/02/25 09:00 11/03/25 09:14 Atorvastatin 40 Mg Tablet FEED TUBE 40 mg DAILY MARTINEZ Administration Bisacodyl 10 mg 10/29/25 16:43 Bisacodyl 10 Mg Suppository RECTAL QAM PRN Constipation Carbidopa/Levodopa 3 tablet 11/02/25 06:00 11/03/25 11:51 Carbidopa/Levodopa 25/100 Mg Tablet FEED TUBE 3 tablet 0600,1100,1600 MARTINEZ Administration Carbidopa/Levodopa 1 tablet 11/01/25 22:00 11/02/25 20:33 Carbidopa/Levodopa 25/100 Mg Tablet FEED TUBE 1 tablet HS MARTINEZ Administration Dexamethasone 6 mg 11/01/25 21:00 11/02/25 20:33 Dexamethasone 2 Mg Tablet FEED TUBE 11/04/25 21:01 6 mg QHS MARTINEZ Administration Hydralazine HCl 10 mg 11/02/25 06:10 11/02/25 06:19 Hydralazine Hcl 20 Mg/Ml Vial IV PUSH 10 mg Q4HR PRN Administration Blood Pressure - High Hydromorphone HCl 1 mg 11/02/25 16:11 Hydromorphone Hcl Inj (*Crx) 1 Mg/Ml Syr IV PUSH Q3H PRN Pain Rated 7-10 Dextrose/Sodium Chloride 1,000 mls @ 70 mls/hr 11/02/25 18:55 11/03/25 09:21 Dextrose 5% Sodium Chloride 0.45% IV CONT 70 mls/hr .[id number] MARTINEZ Administration Metoprolol Tartrate 25 mg 11/02/25 09:00 11/03/25 09:14 Metoprolol Tartrate 25 Mg Tablet FEED TUBE 25 mg DAILY MARTINEZ Administration Ondansetron HCl 4 mg 10/26/25 23:33 Ondansetron Inj 4 Mg/2 Ml Vial IV PUSH Q6H PRN Nausea And Vomiting Pantoprazole Sodium 40 mg 10/27/25 09:00 11/03/25 09:14 Pantoprazole Sodium Iv 40 Mg Vial IV PUSH 40 mg QAM MARTINEZ Administration Polyethylene Glycol 17 gm 11/01/25 18:47 Polyethylene Glycol 3350 17 Gm Powd.Pack FEED TUBE QAM PRN Constipation Radiology Results: ITS Impressions Chest X-Ray 10/27/25 07:23 IMPRESSION: 1. Worsening scattered bilateral airspace disease, left lung worse. Chest CT 10/27/25 14:23 IMPRESSION: Severe bilateral bronchopneumonia. Follow-up is recommended to assess resolution. Chest CTA 10/28/25 11:20 IMPRESSION: 1. No PE identified given respiratory motion artifact. 2. Large dense bilateral lower lobe airspace disease, consider aspiration. Venous Doppler Study 10/29/25 12:50 Impression: Negative for DVT. Modified Barium Swallow 11/01/25 14:42 IMPRESSION: Aspiration observed. Significant residual persisted corresponding to area of the superior most portion of the esophagus. See speech therapist's note for complete evaluation. Tube Placement 11/01/25 15:02 IMPRESSION: Dobbhoff placement as above with no immediate complication. Labs Labs: Laboratory Results - last 24 hr 11/02/25 11/02/25 11/03/25 18:47 20:38 01:16 WBC RBC Hgb Hct MCV MCH MCHC RDW Plt Count MPV Sodium Potassium Chloride Carbon Dioxide Anion Gap BUN Creatinine Estim Creat Clear Calc Estimated GFR Glucose POC Capillary Glucose 68 90 135 H Calcium Phosphorus Total Bilirubin AST ALT Alkaline Phosphatase Total Protein Albumin Triglycerides 11/03/25 11/03/25 11/03/25 04:49 05:21 12:00 WBC 11.5 H RBC 4.37 L Hgb 14.1 Hct 41.2 L MCV 94.3 MCH 32.3 MCHC 34.2 RDW 12.3 Plt Count 180 MPV 10.2 Sodium 130 L Potassium 3.7 Chloride 103 Carbon Dioxide 25 Anion Gap 2 L BUN 23 H Creatinine 0.68 L Estim Creat Clear Calc 80 Estimated GFR > 60 Glucose 138 H POC Capillary Glucose 145 H 155 H Calcium 8.0 L Phosphorus 3.3 Total Bilirubin 1.4 H AST 39 ALT 9 Alkaline Phosphatase 52 Total Protein 5.4 L Albumin 2.7 L Triglycerides 91 Quality VTE Prophylaxis VTE prophylaxis: pharmacologic ordered Hospitalist [facility] Advance Care Plan I have confirmed that the patient's Advanced Care Plan is present, code status is documented, or surrogate decision maker is listed in patient medical record.: Yes Medication Reconciliation I have utilized all available resources to obtain, update and review the patients current medications (includes all prescriptions, OTC, herbals, cannabis, and nutritional supplements).: Yes
--- NOTE | 2025-11-03 15:56 | P.PNGI_ITS ---
Progress Note: A&P Assessment and Plan (1) Dysphagia: Code(s): R13.10 - Dysphagia, unspecified Status: Acute Assessment and Plan: s/p peg advance tube feeding at goal will follow as needed (2) Pneumonia: Qualifiers: Pneumonia type: due to COVID-19 virus Qualified Code(s): U07.1 - COVID- 19; J12.82 - Pneumonia due to coronavirus disease 2018 Code(s): J18.9 - Pneumonia, unspecified organism Status: Acute (3) COVID: Code(s): U07.1 - COVID-19 Status: Acute Assessment and Plan: treated (4) Hypoxic respiratory failure: Code(s): J96.91 - Respiratory failure, unspecified with hypoxia Status: Acute (5) Malnutrition: Code(s): E46 - Unspecified protein-calorie malnutrition Status: Acute (6) Parkinson disease: Qualifiers: Dyskinesia presence: unspecified whether dyskinesia Fluctuating manifestations: unspecified whether manifestations fluctuate Qualified Code(s): G20.A1 - Parkinson's disease without dyskinesia, without mention of fluctuations Code(s): G20.A1 - Parkinson's disease without dyskinesia, without mention of fluctuations Status: Chronic Subjective Date/time seen: 11/03/25 15:56 Interval history: PEG placed yesterday, tolerating TF at 20 ml/h now Review of Systems Review of Systems: All systems reviewed & are unremarkable except as noted in HPI and below Exam Const: General: comfortable and no acute distress Other: , male, elderly, ill-appearing HENMT: Face/Nose/Sinus: Normal nares present Mouth: Yes dry mucous membranes Eyes: General: appearance normal, both eyes and all related structures Sclera: sclerae normal Neck: Neck: supple Resp: Other: Diminished breath sounds bilaterally no respiratory distress Cardio: Rate: regular rate Rhythm: regular rhythm Other: S1-S2 present without murmur, rub, ectopy GI: Other: Abdomen soft, nondistended, nontender. Normoactive bowel sounds in all quadrants. G-tube in place Skin: General skin exam: normal color and no rashes or lesions noted Neuro: Cranial nerves: Yes Equal, round and reactive pupils present Other: Generalized weakness, A&O x4. Normal speech and sensation. EOM intact. Extrem: General: normal to inspection Psych: Mental Status: mental status grossly normal Other: Masklike affect. Good insight and judgment, pleasant. Objective Data Vital Signs Vital Signs: Vital Signs - 24 hr 11/02/25 16:00 11/02/25 16:06 11/02/25 17:20 Temperature 97.6 F Pulse Rate 81 80 84 Respiratory Rate 26 H 18 Blood Pressure 144/85 H 150/90 H Pulse Oximetry 96 94 Oxygen Delivery Room Air 11/02/25 20:50 11/03/25 00:00 11/03/25 05:41 Temperature 98.1 F 97.7 F Pulse Rate 75 91 75 Respiratory Rate 16 16 Blood Pressure 133/70 129/65 Pulse Oximetry 97 94 Oxygen Delivery 11/03/25 09:14 11/03/25 14:55 Temperature 97.3 F L Pulse Rate 75 90 Respiratory Rate 14 Blood Pressure 123/70 Pulse Oximetry 95 Oxygen Delivery Intake/Output Intake/Output: Intake & Output 10/31/25 11/01/25 11/02/25 11/03/25 23:59 23:59 23:59 23:59 Intake Total 1793.7 1957.5 1561.3 966 Output Total 1150 2825 950 Balance 643.7 -867.5 611.3 966 Meds/Results Medications: Active Medications Generic Name Dose Route Start Last Admin Trade Name Freq PRN Reason Stop Dose Admin Acetaminophen 650 mg 10/27/25 10:34 Acetaminophen 650 Mg Suppository RECTAL Q6H PRN Mild Pain (1-3) or Fever Acetaminophen 650 mg 11/01/25 18:51 11/03/25 05:24 Acetaminophen 325 Mg Tablet FEED TUBE 650 mg Q6H PRN Administration Mild Pain (1-3) or Fever Albuterol/Ipratropium 3 ml 10/26/25 23:08 Ipratropium 0.5 Mg/Albuterol Sulfate 2.5 Mg (Base) Ampul.Neb 3 Ml INHALATION Q6HRT PRN Shortness Of Breath Or Wheezing Atorvastatin Calcium 40 mg 11/02/25 09:00 11/03/25 09:14 Atorvastatin 40 Mg Tablet FEED TUBE 40 mg DAILY MARTINEZ Administration Bisacodyl 10 mg 10/29/25 16:43 Bisacodyl 10 Mg Suppository RECTAL QAM PRN Constipation Carbidopa/Levodopa 3 tablet 11/02/25 06:00 11/03/25 11:51 Carbidopa/Levodopa 25/100 Mg Tablet FEED TUBE 3 tablet 0600,1100,1600 MARTINEZ Administration Carbidopa/Levodopa 1 tablet 11/01/25 22:00 11/02/25 20:33 Carbidopa/Levodopa 25/100 Mg Tablet FEED TUBE 1 tablet HS MARTINEZ Administration Dexamethasone 6 mg 11/01/25 21:00 11/02/25 20:33 Dexamethasone 2 Mg Tablet FEED TUBE 11/04/25 21:01 6 mg QHS MARTINEZ Administration Hydralazine HCl 10 mg 11/02/25 06:10 11/02/25 06:19 Hydralazine Hcl 20 Mg/Ml Vial IV PUSH 10 mg Q4HR PRN Administration Blood Pressure - High Hydromorphone HCl 1 mg 11/02/25 16:11 Hydromorphone Hcl Inj (*Crx) 1 Mg/Ml Syr IV PUSH Q3H PRN Pain Rated 7-10 Metoprolol Tartrate 25 mg 11/02/25 09:00 11/03/25 09:14 Metoprolol Tartrate 25 Mg Tablet FEED TUBE 25 mg DAILY MARTINEZ Administration Ondansetron HCl 4 mg 10/26/25 23:33 Ondansetron Inj 4 Mg/2 Ml Vial IV PUSH Q6H PRN Nausea And Vomiting Pantoprazole Sodium 40 mg 10/27/25 09:00 11/03/25 09:14 Pantoprazole Sodium Iv 40 Mg Vial IV PUSH 40 mg QAM MARTINEZ Administration Polyethylene Glycol 17 gm 11/01/25 18:47 Polyethylene Glycol 3350 17 Gm Powd.Pack FEED TUBE QAM PRN Constipation Radiology Results: ITS Impressions Chest X-Ray 10/27/25 07:23 IMPRESSION: 1. Worsening scattered bilateral airspace disease, left lung worse. Chest CT 10/27/25 14:23 IMPRESSION: Severe bilateral bronchopneumonia. Follow-up is recommended to assess resolution. Chest CTA 10/28/25 11:20 IMPRESSION: 1. No PE identified given respiratory motion artifact. 2. Large dense bilateral lower lobe airspace disease, consider aspiration. Venous Doppler Study 10/29/25 12:50 Impression: Negative for DVT. Modified Barium Swallow 11/01/25 14:42 IMPRESSION: Aspiration observed. Significant residual persisted corresponding to area of the superior most portion of the esophagus. See speech therapist's note for complete evaluation. Tube Placement 11/01/25 15:02 IMPRESSION: Dobbhoff placement as above with no immediate complication. Labs Labs: Laboratory Results - last 24 hr 11/02/25 11/02/25 11/03/25 18:47 20:38 01:16 WBC RBC Hgb Hct MCV MCH MCHC RDW Plt Count MPV Sodium Potassium Chloride Carbon Dioxide Anion Gap BUN Creatinine Estim Creat Clear Calc Estimated GFR Glucose POC Capillary Glucose 68 90 135 H Calcium Phosphorus Total Bilirubin AST ALT Alkaline Phosphatase Total Protein Albumin Triglycerides 11/03/25 11/03/25 11/03/25 04:49 05:21 12:00 WBC 11.5 H RBC 4.37 L Hgb 14.1 Hct 41.2 L MCV 94.3 MCH 32.3 MCHC 34.2 RDW 12.3 Plt Count 180 MPV 10.2 Sodium 130 L Potassium 3.7 Chloride 103 Carbon Dioxide 25 Anion Gap 2 L BUN 23 H Creatinine 0.68 L Estim Creat Clear Calc 80 Estimated GFR > 60 Glucose 138 H POC Capillary Glucose 145 H 155 H Calcium 8.0 L Phosphorus 3.3 Total Bilirubin 1.4 H AST 39 ALT 9 Alkaline Phosphatase 52 Total Protein 5.4 L Albumin 2.7 L Triglycerides 91
[2025-11-03] MEDS: CARBIDOPA/LEVODOPA 25/100 MG TABLET 1 TABLET FEED TUBE (20:09)
[2025-11-04] VITALS (10 sets, daily range): BP systolic 127–143; BP diastolic 60–84; PULSE 68–86; RESP 18–20; TEMP 35.6–36.8; O2SAT 95–100
[2025-11-04 05:48] LABS: Hematocrit 40.7 % (42.0-52.0); Hemoglobin 14.1 g/dL (14.0-18.0); Immature Granulocyte Percent A 1.3 % (0-0.5); Lymphocytes Absolute Auto 0.72 K/mm3 (0.9-3.2); Mean Corpuscular HGB Conc 34.6 g/dl (32-36); Mean Corpuscular Hemoglobin 32.9 pg (26-34); Mean Corpuscular Volume 94.9 fl (80-100); Nucleated Red Blood Cells Absolute Auto 0.000 K/mm3 (0.0-0.012); Nucleated Red Blood Cells Perc 0.0 % (0.0-0.2); Platelet Count Result 178 k/mm3 (150-375); Red Blood Count 4.29 M/mm3 (4.6-6.20); White Blood Count 9.5 K/mm3 (4.5-10.0)
[2025-11-04] MEDS: CARBIDOPA/LEVODOPA 25/100 MG TABLET 3 TABLET FEED TUBE ×3 (06:01→16:40)
[2025-11-04 06:08] LABS: Alanine Aminotransferase 16 U/L (6-50); Albumin Level 2.8 g/dL (3.5-5.1); Alkaline Phosphatase 52 U/L (38-126); Anion Gap 2 mmol/L (4-12); Aspartate Amino Transferase 45 U/L (17-59); Bilirubin,Total 1.4 mg/dL (0.2-1.3); Blood Urea Nitrogen 17 mg/dL (9-20); Calcium 7.9 mg/dL (8.4-10.2); Carbon Dioxide 28 mmol/L (22-30); Chloride 103 mmol/L (98-107); Estimated CRCL calculation 101 ml/min; Estimated Glomerular Filt Rate > 60; Glucose 130 mg/dL (65-110); Magnesium 1.8 mg/dL (1.6-2.3); Potassium 3.5 mmol/L (3.4-5.0); Sodium 133 mmol/L (137-145); Total Protein 5.5 g/dL (6.3-8.2)
[2025-11-04] MEDS: ACETAMINOPHEN 325 MG TABLET 650 MG FEED TUBE ×2 (06:44→20:57)
[2025-11-04] MEDS: PANTOPRAZOLE SODIUM IV 40 MG VIAL IV PUSH (09:26)
[2025-11-04] MEDS: METOPROLOL TARTRATE 25 MG TABLET FEED TUBE (09:26)
[2025-11-04] MEDS: ATORVASTATIN 40 MG TABLET FEED TUBE (09:26)
--- NOTE | 2025-11-04 12:27 | P.PNIM_ITS ---
Assessment and Plan Assessment and Plan (1) COVID: Code(s): U07.1 - COVID-19 Status: Acute Assessment and Plan: - symptom onset: 10/25 - tested positive for COVID on: 10/26 - CXR Showed Right lung infiltrates - repeat CXR this morning showed worsening bilateral opacities, CT chest revered - Monitor cultures, MRSA negative -complete Levaquin, Flagyl, Remdesivir and Dexamethasone S/p Vanc and Tolicizumab pulmonology following (2) Pneumonia: Qualifiers: Pneumonia type: due to COVID-19 virus Qualified Code(s): U07.1 - COVID- 19; J12.82 - Pneumonia due to coronavirus disease 2019 Code(s): J18.9 - Pneumonia, unspecified organism Status: Acute Assessment and Plan: Gradually improving, continue current treatment. (3) MATT (acute kidney injury): Code(s): N17.9 - Acute kidney failure, unspecified Status: Acute Assessment and Plan: Creatinine 1.43, BUN 51, GFR 48 upon admission on 10/26. No previous history of renal disease or CKD. - renal ultrasound resolved. Cr 1.05 from 1.43 monitor (4) Elevated glucose: Code(s): R73.09 - Other abnormal glucose Status: Acute Assessment and Plan: Elevated glucose upon admission on 10/26, blood sugar 121. No A1c on file. A1c 5.5, no diabetes (5) Parkinson disease: Qualifiers: Dyskinesia presence: unspecified whether dyskinesia Fluctuating manifestations: unspecified whether manifestations fluctuate Qualified Code(s): G20.A1 - Parkinson's disease without dyskinesia, without mention of fluctuations Code(s): G20.A1 - Parkinson's disease without dyskinesia, without mention of fluctuations Status: Chronic Assessment and Plan: History of Parkinson's disease. - continue carbidopa levodopa (6) HTN (hypertension): Qualifiers: Hypertension type: primary hypertension Qualified Code(s): I10 - Essential (primary) hypertension Code(s): I10 - Essential (primary) hypertension Status: Chronic Assessment and Plan: - continue home medications - monitor (7) Dysphagia: Code(s): R13.10 - Dysphagia, unspecified Status: Acute Assessment and Plan: Status post PEG tube placement 11/02/2025 Tube feeds restarted Arrangements for tube feeds Plan Acute hypoxemic respiratory failure, resolvign s/p Airvo, now on room air improving continue titrating oxygen Diet: G-tube feeding DVT Prophylaxis: Lovenox Lines/Tubes: pIV Code Status: full code Subjective Date/time seen: 11/04/25 12:27 Interval history: Patient was seen in my is today. No new overnight complaints. No shortness of breath or chest pain. PEG placed yesterday, tolerating TF at 20 ml/h now Review of Systems Review of Systems: All systems reviewed & are unremarkable except as noted in HPI and below Exam Const: General: comfortable and no acute distress Other: , male, elderly, ill-appearing HENMT: Face/Nose/Sinus: Normal nares present Mouth: Yes dry mucous membranes Eyes: General: appearance normal, both eyes and all related structures Sclera: sclerae normal Pupils: Equal, round and reactive pupils present EOM: EOMs intact bilaterally Resp: Effort & Inspection: normal respiratory effort Other: Diminished breath sounds bilaterally no respiratory distress Cardio: Rate: regular rate Rhythm: regular rhythm Other: S1-S2 present without murmur, rub, ectopy GI: Other: Abdomen soft, nondistended, nontender. Normoactive bowel sounds in all quadrants. G-tube in place Skin: General skin exam: normal color and no rashes or lesions noted Wounds: no wounds Neuro: Cranial nerves: Yes Equal, round and reactive pupils present Other: Generalized weakness, A&O x4. Normal speech and sensation. EOM intact. Extrem: General: normal to inspection Psych: Mental Status: mental status grossly normal Other: Masklike affect. Good insight and judgment, pleasant. Objective Data Vital Signs Vital Signs: Vital Signs - 24 hr 11/03/25 14:55 11/03/25 16:00 11/03/25 20:00 Temperature 36.3 C L Pulse Rate 90 81 81 Respiratory Rate 14 14 Blood Pressure 123/70 Pulse Oximetry 95 95 Oxygen Delivery Room Air Fraction of Inspired Oxygen 50 11/03/25 20:00 11/03/25 22:31 11/04/25 00:00 Temperature 37.1 C Pulse Rate 85 58 L 78 Respiratory Rate 18 Blood Pressure 154/56 H Pulse Oximetry 100 Oxygen Delivery Fraction of Inspired Oxygen 11/04/25 04:00 11/04/25 06:00 11/04/25 09:26 Temperature 36.3 C L Pulse Rate 86 86 73 Respiratory Rate 18 Blood Pressure 127/81 Pulse Oximetry 99 Oxygen Delivery Fraction of Inspired Oxygen Intake/Output Intake/Output: Intake & Output 11/01/25 11/02/25 11/03/25 11/04/25 23:59 23:59 23:59 23:59 Intake Total 1957.5 1561.3 2044 462 Output Total 2825 950 700 Balance -867.5 611.3 2044 -238 Meds/Results Medications: Active Medications Generic Name Dose Route Start Last Admin Trade Name Freq PRN Reason Stop Dose Admin Acetaminophen 650 mg 10/27/25 10:34 Acetaminophen 650 Mg Suppository RECTAL Q6H PRN Mild Pain (1-3) or Fever Acetaminophen 650 mg 11/01/25 18:51 11/04/25 06:44 Acetaminophen 325 Mg Tablet FEED TUBE 650 mg Q6H PRN Administration Mild Pain (1-3) or Fever Albuterol/Ipratropium 3 ml 10/26/25 23:08 Ipratropium 0.5 Mg/Albuterol Sulfate 2.5 Mg (Base) Ampul.Neb 3 Ml INHALATION Q6HRT PRN Shortness Of Breath Or Wheezing Atorvastatin Calcium 40 mg 11/02/25 09:00 11/04/25 09:26 Atorvastatin 40 Mg Tablet FEED TUBE 40 mg DAILY MARTINEZ Administration Bisacodyl 10 mg 10/29/25 16:43 Bisacodyl 10 Mg Suppository RECTAL QAM PRN Constipation Carbidopa/Levodopa 3 tablet 11/02/25 06:00 11/04/25 12:03 Carbidopa/Levodopa 25/100 Mg Tablet FEED TUBE 3 tablet 0600,1100,1600 MARTINEZ Administration Carbidopa/Levodopa 1 tablet 11/01/25 22:00 11/03/25 20:09 Carbidopa/Levodopa 25/100 Mg Tablet FEED TUBE 1 tablet HS MARTINEZ Administration Dexamethasone 6 mg 11/01/25 21:00 11/03/25 20:12 Dexamethasone 2 Mg Tablet FEED TUBE 11/04/25 21:01 6 mg QHS MARTINEZ Administration Hydralazine HCl 10 mg 11/02/25 06:10 11/02/25 06:19 Hydralazine Hcl 20 Mg/Ml Vial IV PUSH 10 mg Q4HR PRN Administration Blood Pressure - High Hydromorphone HCl 1 mg 11/02/25 16:11 Hydromorphone Hcl Inj (*Crx) 1 Mg/Ml Syr IV PUSH Q3H PRN Pain Rated 7-10 Metoprolol Tartrate 25 mg 11/02/25 09:00 11/04/25 09:26 Metoprolol Tartrate 25 Mg Tablet FEED TUBE 25 mg DAILY MARTINEZ Administration Ondansetron HCl 4 mg 10/26/25 23:33 Ondansetron Inj 4 Mg/2 Ml Vial IV PUSH Q6H PRN Nausea And Vomiting Pantoprazole Sodium 40 mg 10/27/25 09:00 11/04/25 09:26 Pantoprazole Sodium Iv 40 Mg Vial IV PUSH 40 mg QAM MARTINEZ Administration Polyethylene Glycol 17 gm 11/01/25 18:47 Polyethylene Glycol 3350 17 Gm Powd.Pack FEED TUBE QAM PRN Constipation Radiology Results: ITS Impressions Chest X-Ray 10/27/25 07:23 IMPRESSION: 1. Worsening scattered bilateral airspace disease, left lung worse. Chest CT 10/27/25 14:23 IMPRESSION: Severe bilateral bronchopneumonia. Follow-up is recommended to assess resolution. Chest CTA 10/28/25 11:20 IMPRESSION: 1. No PE identified given respiratory motion artifact. 2. Large dense bilateral lower lobe airspace disease, consider aspiration. Venous Doppler Study 10/29/25 12:50 Impression: Negative for DVT. Modified Barium Swallow 11/01/25 14:42 IMPRESSION: Aspiration observed. Significant residual persisted corresponding to area of the superior most portion of the esophagus. See speech therapist's note for complete evaluation. Tube Placement 11/01/25 15:02 IMPRESSION: Dobbhoff placement as above with no immediate complication. Labs Labs: Laboratory Results - last 24 hr 11/03/25 11/04/25 11/04/25 04:49 00:12 05:38 WBC 9.5 RBC 4.29 L Hgb 14.1 Hct 40.7 L MCV 94.9 MCH 32.9 MCHC 34.6 RDW 12.6 Plt Count 178 MPV 9.8 Immature Gran % (Auto) 1.3 H Neut % (Auto) 88.2 H Lymph % (Auto) 7.6 L [place] % (Auto) 2.6 Eos % (Auto) 0.1 Baso % (Auto) 0.2 Lymph # (Auto) 0.72 L [place] # (Auto) 0.3 Eos # (Auto) 0.0 Baso # (Auto) 0.0 Abs Immat Gran (auto) 0.12 H Absolute Neuts (auto) 8.3 H Absolute Nucleated RBC 0.000 Nucleated RBC % 0.0 Sodium 133 L Potassium 3.5 Chloride 103 Carbon Dioxide 28 Anion Gap 2 L BUN 17 Creatinine 0.53 L Estim Creat Clear Calc 101 Estimated GFR > 60 Glucose 130 H POC Capillary Glucose 130 H Calcium 7.9 L Phosphorus 2.5 Magnesium 1.8 Total Bilirubin 1.4 H AST 45 ALT 16 Alkaline Phosphatase 52 Total Protein 5.5 L Albumin 2.8 L Triglycerides 91 11/04/25 11/04/25 06:54 12:05 WBC RBC Hgb Hct MCV MCH MCHC RDW Plt Count MPV Immature Gran % (Auto) Neut % (Auto) Lymph % (Auto) [place] % (Auto) Eos % (Auto) Baso % (Auto) Lymph # (Auto) [place] # (Auto) Eos # (Auto) Baso # (Auto) Abs Immat Gran (auto) Absolute Neuts (auto) Absolute Nucleated RBC Nucleated RBC % Sodium Potassium Chloride Carbon Dioxide Anion Gap BUN Creatinine Estim Creat Clear Calc Estimated GFR Glucose POC Capillary Glucose 132 H 107 H Calcium Phosphorus Magnesium Total Bilirubin AST ALT Alkaline Phosphatase Total Protein Albumin Triglycerides Quality VTE Prophylaxis VTE prophylaxis: pharmacologic ordered
[2025-11-04] MEDS: ENOXAPARIN 40 MG/0.4 ML SYRINGE SUB-Q (16:40)
[2025-11-04] MEDS: CARBIDOPA/LEVODOPA 25/100 MG TABLET 1 TABLET FEED TUBE (20:57)
[2025-11-05] VITALS (10 sets, daily range): BP systolic 105–159; BP diastolic 59–82; PULSE 69–105; RESP 16–18; TEMP 36.6–36.8; O2SAT 94–97
[2025-11-05] MEDS: CARBIDOPA/LEVODOPA 25/100 MG TABLET 3 TABLET FEED TUBE ×3 (05:18→17:24)
[2025-11-05] MEDS: ACETAMINOPHEN 325 MG TABLET 650 MG FEED TUBE ×3 (05:18→23:22)
[2025-11-05 05:51] LABS: Hematocrit 41.5 % (42.0-52.0); Hemoglobin 14.2 g/dL (14.0-18.0); Immature Granulocyte Percent A 0.7 % (0-0.5); Lymphocytes Absolute Auto 0.69 K/mm3 (0.9-3.2); Mean Corpuscular HGB Conc 34.2 g/dl (32-36); Mean Corpuscular Hemoglobin 32.8 pg (26-34); Mean Corpuscular Volume 95.8 fl (80-100); Nucleated Red Blood Cells Absolute Auto 0.000 K/mm3 (0.0-0.012); Nucleated Red Blood Cells Perc 0.0 % (0.0-0.2); Platelet Count Result 165 k/mm3 (150-375); Red Blood Count 4.33 M/mm3 (4.6-6.20); White Blood Count 13.5 K/mm3 (4.5-10.0)
[2025-11-05 06:01] LABS: Anisocytosis 1+; Burr Cells 2+; Ovalocytes 1+
[2025-11-05 06:02] LABS: Schistocytes None Seen
[2025-11-05 06:12] LABS: INR 1.0; Prothrombin Time 13.2 Seconds (11.1-14.7)
[2025-11-05 06:13] LABS: Partial Thromboplastin Time 29.5 Seconds (22.3-36.8)
[2025-11-05 06:22] LABS: Alanine Aminotransferase 24 U/L (6-50); Albumin Level 2.8 g/dL (3.5-5.1); Alkaline Phosphatase 50 U/L (38-126); Anion Gap 2 mmol/L (4-12); Aspartate Amino Transferase 41 U/L (17-59); Bilirubin,Total 1.0 mg/dL (0.2-1.3); Blood Urea Nitrogen 19 mg/dL (9-20); Calcium 8.1 mg/dL (8.4-10.2); Carbon Dioxide 30 mmol/L (22-30); Chloride 101 mmol/L (98-107); Estimated CRCL calculation 104 ml/min; Estimated Glomerular Filt Rate > 60; Glucose 141 mg/dL (65-110); Magnesium 1.9 mg/dL (1.6-2.3); Potassium 3.8 mmol/L (3.4-5.0); Sodium 133 mmol/L (137-145); Total Protein 5.5 g/dL (6.3-8.2); Triglycerides 73 mg/dL (<150)
[2025-11-05 06:30] LABS: Transferrin 138 mg/dL (206-381)
[2025-11-05] MEDS: ENOXAPARIN 40 MG/0.4 ML SYRINGE SUB-Q (09:07)
[2025-11-05] MEDS: METOPROLOL TARTRATE 25 MG TABLET FEED TUBE (09:07)
[2025-11-05] MEDS: ATORVASTATIN 40 MG TABLET FEED TUBE (09:07)
[2025-11-05] MEDS: PANTOPRAZOLE SODIUM IV 40 MG VIAL IV PUSH (09:08)
--- NOTE | 2025-11-05 11:27 | P.PNIM_ITS ---
Assessment and Plan Assessment and Plan (1) COVID: Code(s): U07.1 - COVID-19 Status: Acute Assessment and Plan: - symptom onset: 10/25 - tested positive for COVID on: 10/26 - CXR Showed Right lung infiltrates - repeat CXR this morning showed worsening bilateral opacities, CT chest revered - Monitor cultures, MRSA negative -complete Levaquin, Flagyl, Remdesivir and Dexamethasone S/p Vanc and Tolicizumab pulmonology following (2) Pneumonia: Qualifiers: Pneumonia type: due to COVID-19 virus Qualified Code(s): U07.1 - COVID- 19; J12.82 - Pneumonia due to coronavirus disease 2019 Code(s): J18.9 - Pneumonia, unspecified organism Status: Acute Assessment and Plan: Gradually improving, continue current treatment. (3) MATT (acute kidney injury): Code(s): N17.9 - Acute kidney failure, unspecified Status: Acute Assessment and Plan: Creatinine 1.43, BUN 51, GFR 48 upon admission on 10/26. No previous history of renal disease or CKD. - renal ultrasound resolved. Cr 1.05 from 1.43 monitor (4) Elevated glucose: Code(s): R73.09 - Other abnormal glucose Status: Acute Assessment and Plan: Elevated glucose upon admission on 10/26, blood sugar 121. No A1c on file. A1c 5.5, no diabetes (5) Parkinson disease: Qualifiers: Dyskinesia presence: unspecified whether dyskinesia Fluctuating manifestations: unspecified whether manifestations fluctuate Qualified Code(s): G20.A1 - Parkinson's disease without dyskinesia, without mention of fluctuations Code(s): G20.A1 - Parkinson's disease without dyskinesia, without mention of fluctuations Status: Chronic Assessment and Plan: History of Parkinson's disease. - continue carbidopa levodopa (6) HTN (hypertension): Qualifiers: Hypertension type: primary hypertension Qualified Code(s): I10 - Essential (primary) hypertension Code(s): I10 - Essential (primary) hypertension Status: Chronic Assessment and Plan: - continue home medications - monitor (7) Dysphagia: Code(s): R13.10 - Dysphagia, unspecified Status: Acute Assessment and Plan: Status post PEG tube placement 11/02/2025 Tube feeds restarted Arrangements for tube feeds Plan Acute hypoxemic respiratory failure, resoling s/p Airvo, now on room air improving continue titrating oxygen Getting physical therapy, Will discharge when bed available in rehab Diet: G-tube feeding DVT Prophylaxis: Lovenox Lines/Tubes: pIV Code Status: full code Subjective Date/time seen: 11/05/25 11:27 Interval history: Patient was seen in my is today. Feeling better. No new overnight complaints. No shortness of breath or chest pain. PEG placed, tolerating TF at 20 ml/h now Review of Systems Review of Systems: All systems reviewed & are unremarkable except as noted in HPI and below Exam Const: General: comfortable and no acute distress Other: , male, elderly, ill-appearing HENMT: Face/Nose/Sinus: Normal nares present Mouth: Yes dry mucous membranes Eyes: General: appearance normal, both eyes and all related structures Sclera: sclerae normal Pupils: Equal, round and reactive pupils present EOM: EOMs intact bilaterally Resp: Effort & Inspection: normal respiratory effort Other: Diminished breath sounds bilaterally no respiratory distress Cardio: Rate: regular rate Rhythm: regular rhythm Other: S1-S2 present without murmur, rub, ectopy GI: Other: Abdomen soft, nondistended, nontender. Normoactive bowel sounds in all quadrants. G-tube in place Skin: General skin exam: normal color and no rashes or lesions noted Wounds: no wounds Neuro: Cranial nerves: Yes Equal, round and reactive pupils present Other: Generalized weakness, A&O x4. Normal speech and sensation. EOM intact. Extrem: General: normal to inspection Psych: Mental Status: mental status grossly normal Other: Masklike affect. Good insight and judgment, pleasant. Objective Data Vital Signs Vital Signs: Vital Signs - 24 hr 11/04/25 12:00 11/04/25 14:00 11/04/25 16:00 Temperature 35.6 C L Pulse Rate 86 70 68 Respiratory Rate 20 Blood Pressure 143/84 H Pulse Oximetry 100 Oxygen Delivery 11/04/25 20:00 11/04/25 20:28 11/04/25 21:00 Temperature 36.8 C Pulse Rate 76 79 Respiratory Rate 18 Blood Pressure 127/60 Pulse Oximetry 95 Oxygen Delivery Room Air 11/05/25 00:00 11/05/25 04:00 11/05/25 05:24 Temperature 36.6 C Pulse Rate 74 75 86 Respiratory Rate 16 Blood Pressure 126/76 Pulse Oximetry 95 Oxygen Delivery 11/05/25 09:07 Temperature Pulse Rate 97 Respiratory Rate Blood Pressure Pulse Oximetry Oxygen Delivery Intake/Output Intake/Output: Intake & Output 11/02/25 11/03/25 11/04/25 11/05/25 23:59 23:59 23:59 23:59 Intake Total 1561.3 2044 462 1098 Output Total 950 700 400 Balance 611.3 2044 -402 698 Meds/Results Medications: Active Medications Generic Name Dose Route Start Last Admin Trade Name Freq PRN Reason Stop Dose Admin Acetaminophen 650 mg 10/27/25 10:34 Acetaminophen 650 Mg Suppository RECTAL Q6H PRN Mild Pain (1-3) or Fever Acetaminophen 650 mg 11/01/25 18:51 11/05/25 05:18 Acetaminophen 325 Mg Tablet FEED TUBE 650 mg Q6H PRN Administration Mild Pain (1-3) or Fever Albuterol/Ipratropium 3 ml 10/26/25 23:08 Ipratropium 0.5 Mg/Albuterol Sulfate 2.5 Mg (Base) Ampul.Neb 3 Ml INHALATION Q6HRT PRN Shortness Of Breath Or Wheezing Atorvastatin Calcium 40 mg 11/02/25 09:00 11/05/25 09:07 Atorvastatin 40 Mg Tablet FEED TUBE 40 mg DAILY MARTINEZ Administration Bisacodyl 10 mg 10/29/25 16:43 Bisacodyl 10 Mg Suppository RECTAL QAM PRN Constipation Carbidopa/Levodopa 3 tablet 11/02/25 06:00 11/05/25 05:18 Carbidopa/Levodopa 25/100 Mg Tablet FEED TUBE 3 tablet 0600,1100,1600 MARTINEZ Administration Carbidopa/Levodopa 1 tablet 11/01/25 22:00 11/04/25 20:57 Carbidopa/Levodopa 25/100 Mg Tablet FEED TUBE 1 tablet HS MARTINEZ Administration Enoxaparin Sodium 40 mg 11/04/25 12:30 11/05/25 09:07 Enoxaparin 40 Mg/0.4 Ml Syringe SUB-Q 40 mg DAILY MARTINEZ Administration Hydralazine HCl 10 mg 11/02/25 06:10 11/02/25 06:19 Hydralazine Hcl 20 Mg/Ml Vial IV PUSH 10 mg Q4HR PRN Administration Blood Pressure - High Hydromorphone HCl 1 mg 11/02/25 16:11 Hydromorphone Hcl Inj (*Crx) 1 Mg/Ml Syr IV PUSH Q3H PRN Pain Rated 7-10 Metoprolol Tartrate 25 mg 11/02/25 09:00 11/05/25 09:07 Metoprolol Tartrate 25 Mg Tablet FEED TUBE 25 mg DAILY MARTINEZ Administration Ondansetron HCl 4 mg 10/26/25 23:33 Ondansetron Inj 4 Mg/2 Ml Vial IV PUSH Q6H PRN Nausea And Vomiting Pantoprazole Sodium 40 mg 10/27/25 09:00 11/05/25 09:08 Pantoprazole Sodium Iv 40 Mg Vial IV PUSH 40 mg QAM MARTINEZ Administration Polyethylene Glycol 17 gm 11/01/25 18:47 Polyethylene Glycol 3350 17 Gm Powd.Pack FEED TUBE QAM PRN Constipation Radiology Results: ITS Impressions Chest X-Ray 10/27/25 07:23 IMPRESSION: 1. Worsening scattered bilateral airspace disease, left lung worse. Chest CT 10/27/25 14:23 IMPRESSION: Severe bilateral bronchopneumonia. Follow-up is recommended to assess resolution. Chest CTA 10/28/25 11:20 IMPRESSION: 1. No PE identified given respiratory motion artifact. 2. Large dense bilateral lower lobe airspace disease, consider aspiration. Venous Doppler Study 10/29/25 12:50 Impression: Negative for DVT. Modified Barium Swallow 11/01/25 14:42 IMPRESSION: Aspiration observed. Significant residual persisted corresponding to area of the superior most portion of the esophagus. See speech therapist's note for complete evaluation. Tube Placement 11/01/25 15:02 IMPRESSION: Dobbhoff placement as above with no immediate complication. Labs Labs: Laboratory Results - last 24 hr 11/04/25 11/05/25 11/05/25 12:05 00:07 05:36 WBC 13.5 H RBC 4.33 L Hgb 14.2 Hct 41.5 L MCV 95.8 MCH 32.8 MCHC 34.2 RDW 12.7 Plt Count 165 MPV 10.3 Immature Gran % (Auto) 0.7 H Neut % (Auto) 91.4 H Lymph % (Auto) 5.1 L [place] % (Auto) 2.5 L Eos % (Auto) 0.1 Baso % (Auto) 0.2 Lymph # (Auto) 0.69 L [place] # (Auto) 0.3 Eos # (Auto) 0.0 Baso # (Auto) 0.0 Abs Immat Gran (auto) 0.10 H Absolute Neuts (auto) 12.3 H Absolute Nucleated RBC 0.000 Band Neutrophils % Not Reportable Nucleated RBC % 0.0 Platelet Estimate Adequate Anisocytosis 1+ Ovalocytes 1+ [place] Cells 2+ Schistocytes None seen PT 13.2 INR 1.0 APTT 29.5 Sodium 133 L Potassium 3.8 Chloride 101 Carbon Dioxide 30 Anion Gap 2 L BUN 19 Creatinine 0.51 L Estim Creat Clear Calc 104 Estimated GFR > 60 Glucose 141 H POC Capillary Glucose 107 H 190 H Calcium 8.1 L Phosphorus 2.7 Magnesium 1.9 Transferrin 138 L Total Bilirubin 1.0 AST 41 ALT 24 Alkaline Phosphatase 50 Total Protein 5.5 L Albumin 2.8 L Triglycerides 73 11/05/25 05:36 WBC RBC Hgb Hct MCV MCH MCHC RDW Plt Count MPV Immature Gran % (Auto) Neut % (Auto) Lymph % (Auto) [place] % (Auto) Eos % (Auto) Baso % (Auto) Lymph # (Auto) [place] # (Auto) Eos # (Auto) Baso # (Auto) Abs Immat Gran (auto) Absolute Neuts (auto) Absolute Nucleated RBC Band Neutrophils % Nucleated RBC % Platelet Estimate Anisocytosis Ovalocytes [place] Cells Schistocytes PT INR APTT Sodium Potassium Chloride Carbon Dioxide Anion Gap BUN Creatinine Estim Creat Clear Calc Estimated GFR Glucose POC Capillary Glucose Calcium Phosphorus Magnesium Transferrin Total Bilirubin AST ALT Alkaline Phosphatase Total Protein Albumin Triglycerides Cancelled Quality VTE Prophylaxis VTE prophylaxis: pharmacologic ordered
[2025-11-05 15:29] LABS: Add Urine Microscopic? YES; Appearance Urine Cloudy (Clear); Glucose Urine UA Negative (Negative); Leukocyte Esterase Ur Negative LEU/UL (Negative); Nitrate Urine Negative (Negative); Non Pathogenic Casts 0-2; Specific Grav Ur 1.018 (1.001-1.035)
[2025-11-05] MEDS: CARBIDOPA/LEVODOPA 25/100 MG TABLET 1 TABLET FEED TUBE (21:41)
[2025-11-06] VITALS (7 sets, daily range): BP systolic 125–134; BP diastolic 75–80; PULSE 76–89; RESP 16–18; TEMP 36.2–36.8; O2SAT 98
[2025-11-06] MEDS: ACETAMINOPHEN 325 MG TABLET 650 MG FEED TUBE ×2 (05:20→22:29)
[2025-11-06] MEDS: CARBIDOPA/LEVODOPA 25/100 MG TABLET 3 TABLET FEED TUBE ×3 (05:21→16:48)
[2025-11-06 05:30] LABS: Anion Gap 3 mmol/L (4-12); Blood Urea Nitrogen 21 mg/dL (9-20); Calcium 8.1 mg/dL (8.4-10.2); Carbon Dioxide 30 mmol/L (22-30); Chloride 101 mmol/L (98-107); Estimated CRCL calculation 99 ml/min; Estimated Glomerular Filt Rate > 60; Glucose 124 mg/dL (65-110); Potassium 3.2 mmol/L (3.4-5.0); Sodium 134 mmol/L (137-145)
[2025-11-06] MEDS: METOPROLOL TARTRATE 25 MG TABLET FEED TUBE (08:37)
[2025-11-06] MEDS: PANTOPRAZOLE SODIUM IV 40 MG VIAL IV PUSH (08:37)
[2025-11-06] MEDS: ENOXAPARIN 40 MG/0.4 ML SYRINGE SUB-Q (08:37)
[2025-11-06] MEDS: ATORVASTATIN 40 MG TABLET FEED TUBE (08:37)
--- NOTE | 2025-11-06 10:34 | P.PNIM_ITS ---
Assessment and Plan Assessment and Plan (1) COVID: Code(s): U07.1 - COVID-19 Status: Acute Assessment and Plan: - symptom onset: 10/25 - tested positive for COVID on: 10/26 - CXR Showed Right lung infiltrates - repeat CXR this morning showed worsening bilateral opacities, CT chest revered - Monitor cultures, MRSA negative -complete Levaquin, Flagyl, Remdesivir and Dexamethasone S/p Vanc and Tolicizumab pulmonology following (2) Pneumonia: Qualifiers: Pneumonia type: due to COVID-19 virus Qualified Code(s): U07.1 - COVID- 19; J12.82 - Pneumonia due to coronavirus disease 2019 Code(s): J18.9 - Pneumonia, unspecified organism Status: Acute Assessment and Plan: Gradually improving, continue current treatment. (3) MATT (acute kidney injury): Code(s): N17.9 - Acute kidney failure, unspecified Status: Acute Assessment and Plan: Creatinine 1.43, BUN 51, GFR 48 upon admission on 10/26. No previous history of renal disease or CKD. - renal ultrasound resolved. Cr 1.05 from 1.43 monitor (4) Elevated glucose: Code(s): R73.09 - Other abnormal glucose Status: Acute Assessment and Plan: Elevated glucose upon admission on 10/26, blood sugar 121. No A1c on file. A1c 5.5, no diabetes (5) Parkinson disease: Qualifiers: Dyskinesia presence: unspecified whether dyskinesia Fluctuating manifestations: unspecified whether manifestations fluctuate Qualified Code(s): G20.A1 - Parkinson's disease without dyskinesia, without mention of fluctuations Code(s): G20.A1 - Parkinson's disease without dyskinesia, without mention of fluctuations Status: Chronic Assessment and Plan: History of Parkinson's disease. - continue carbidopa levodopa (6) HTN (hypertension): Qualifiers: Hypertension type: primary hypertension Qualified Code(s): I10 - Essential (primary) hypertension Code(s): I10 - Essential (primary) hypertension Status: Chronic Assessment and Plan: - continue home medications - monitor (7) Dysphagia: Code(s): R13.10 - Dysphagia, unspecified Status: Acute Assessment and Plan: Status post PEG tube placement 11/02/2025 Tube feeds restarted Arrangements for tube feeds Plan Acute hypoxemic respiratory failure, resoling s/p Airvo, now on room air improving continue titrating oxygen Getting physical therapy, Will discharge when bed available in rehab Diet: G-tube feeding DVT Prophylaxis: Lovenox Lines/Tubes: pIV Code Status: full code Subjective Date/time seen: 11/06/25 10:34 Interval history: Patient was seen in my is today. Feeling better. No new overnight complaints. No shortness of breath or chest pain. PEG placed, tolerating TF Review of Systems Review of Systems: All systems reviewed & are unremarkable except as noted in HPI and below Exam Const: General: comfortable and no acute distress Other: , male, elderly, ill-appearing HENMT: Face/Nose/Sinus: Normal nares present Mouth: Yes dry mucous membranes Eyes: General: appearance normal, both eyes and all related structures Sclera: sclerae normal Pupils: Equal, round and reactive pupils present EOM: EOMs intact bilaterally Resp: Effort & Inspection: normal respiratory effort Other: Diminished breath sounds bilaterally no respiratory distress Cardio: Rate: regular rate Rhythm: regular rhythm Other: S1-S2 present without murmur, rub, ectopy GI: Other: Abdomen soft, nondistended, nontender. Normoactive bowel sounds in all quadrants. G-tube in place Skin: General skin exam: normal color and no rashes or lesions noted Wounds: no wounds Neuro: Cranial nerves: Yes Equal, round and reactive pupils present Other: Generalized weakness, A&O x4. Normal speech and sensation. EOM intact. Extrem: General: normal to inspection Psych: Mental Status: mental status grossly normal Other: Masklike affect. Good insight and judgment, pleasant. Objective Data Vital Signs Vital Signs: Vital Signs - 24 hr 11/05/25 12:00 11/05/25 14:00 11/05/25 16:00 Temperature 36.7 C Pulse Rate 80 69 101 H Respiratory Rate 18 Blood Pressure 159/82 H Pulse Oximetry 97 Oxygen Delivery 11/05/25 20:00 11/05/25 22:00 11/05/25 22:00 Temperature 36.8 C Pulse Rate 87 81 Respiratory Rate 16 Blood Pressure 105/59 L Pulse Oximetry 94 Oxygen Delivery Room Air 11/06/25 00:00 11/06/25 04:00 11/06/25 06:00 Temperature 36.2 C L Pulse Rate 76 86 81 Respiratory Rate 18 Blood Pressure 134/75 Pulse Oximetry 98 Oxygen Delivery 11/06/25 08:00 11/06/25 08:00 11/06/25 08:37 Temperature Pulse Rate 87 88 Respiratory Rate Blood Pressure Pulse Oximetry Oxygen Delivery Room Air Intake/Output Intake/Output: Intake & Output 11/03/25 11/04/25 11/05/25 11/06/25 23:59 23:59 23:59 23:59 Intake Total 2044 462 1098 1148 Output Total 825 830 3174 Balance 4 -238 298 148 Meds/Results Medications: Active Medications Generic Name Dose Route Start Last Admin Trade Name Freq PRN Reason Stop Dose Admin Acetaminophen 650 mg 10/27/25 10:34 Acetaminophen 650 Mg Suppository RECTAL Q6H PRN Mild Pain (1-3) or Fever Acetaminophen 650 mg 11/01/25 18:51 11/06/25 05:20 Acetaminophen 325 Mg Tablet FEED TUBE 650 mg Q6H PRN Administration Mild Pain (1-3) or Fever Albuterol/Ipratropium 3 ml 10/26/25 23:08 Ipratropium 0.5 Mg/Albuterol Sulfate 2.5 Mg (Base) Ampul.Neb 3 Ml INHALATION Q6HRT PRN Shortness Of Breath Or Wheezing Atorvastatin Calcium 40 mg 11/02/25 09:00 11/06/25 08:37 Atorvastatin 40 Mg Tablet FEED TUBE 40 mg DAILY MARTINEZ Administration Bisacodyl 10 mg 10/29/25 16:43 Bisacodyl 10 Mg Suppository RECTAL QAM PRN Constipation Carbidopa/Levodopa 3 tablet 11/02/25 06:00 11/06/25 05:21 Carbidopa/Levodopa 25/100 Mg Tablet FEED TUBE 3 tablet 0600,1100,1600 MARTINZE Administration Carbidopa/Levodopa 1 tablet 11/01/25 22:00 11/05/25 21:41 Carbidopa/Levodopa 25/100 Mg Tablet FEED TUBE 1 tablet HS MARTINEZ Administration Enoxaparin Sodium 40 mg 11/04/25 12:30 11/06/25 08:37 Enoxaparin 40 Mg/0.4 Ml Syringe SUB-Q 40 mg DAILY MARTINEZ Administration Hydralazine HCl 10 mg 11/02/25 06:10 11/02/25 06:19 Hydralazine Hcl 20 Mg/Ml Vial IV PUSH 10 mg Q4HR PRN Administration Blood Pressure - High Hydromorphone HCl 1 mg 11/02/25 16:11 Hydromorphone Hcl Inj (*Crx) 1 Mg/Ml Syr IV PUSH Q3H PRN Pain Rated 7-10 Metoprolol Tartrate 25 mg 11/02/25 09:00 11/06/25 08:37 Metoprolol Tartrate 25 Mg Tablet FEED TUBE 25 mg DAILY MARTINEZ Administration Ondansetron HCl 4 mg 10/26/25 23:33 Ondansetron Inj 4 Mg/2 Ml Vial IV PUSH Q6H PRN Nausea And Vomiting Pantoprazole Sodium 40 mg 10/27/25 09:00 11/06/25 08:37 Pantoprazole Sodium Iv 40 Mg Vial IV PUSH 40 mg QAM MARTINEZ Administration Polyethylene Glycol 17 gm 11/01/25 18:47 Polyethylene Glycol 3350 17 Gm Powd.Pack FEED TUBE QAM PRN Constipation Potassium Chloride 40 meq 11/06/25 10:31 Potassium Chloride 20 Meq Er Tablet PO 11/06/25 10:32 ONCE ONE Radiology Results: ITS Impressions Chest X-Ray 10/27/25 07:23 IMPRESSION: 1. Worsening scattered bilateral airspace disease, left lung worse. Chest CT 10/27/25 14:23 IMPRESSION: Severe bilateral bronchopneumonia. Follow-up is recommended to assess resolution. Chest CTA 10/28/25 11:20 IMPRESSION: 1. No PE identified given respiratory motion artifact. 2. Large dense bilateral lower lobe airspace disease, consider aspiration. Venous Doppler Study 10/29/25 12:50 Impression: Negative for DVT. Modified Barium Swallow 11/01/25 14:42 IMPRESSION: Aspiration observed. Significant residual persisted corresponding to area of the superior most portion of the esophagus. See speech therapist's note for complete evaluation. Tube Placement 11/01/25 15:02 IMPRESSION: Dobbhoff placement as above with no immediate complication. Labs Labs: Laboratory Results - last 24 hr 11/05/25 11/05/25 11/05/25 11:51 15:18 16:58 Sodium Potassium Chloride Carbon Dioxide Anion Gap BUN Creatinine Estim Creat Clear Calc Estimated GFR Glucose POC Capillary Glucose 106 H 72 Calcium Urine Color Yellow Urine Appearance Cloudy H Urine pH 8.0 Ur Specific [place] 1.018 Urine Protein Negative Urine Glucose (UA) Negative Urine Ketones Negative Ur Blood (Man) Negative Urine Nitrate Negative Urine Bilirubin Negative Urine Urobilinogen 2.0 H Leukocyte Esterase Rfl Negative Urine RBC 0-2 Urine WBC 0-5 Ur Squamous Epith Cells None seen Urine Bacteria None seen Urine Casts 0-2 11/05/25 11/05/25 11/06/25 17:30 23:17 04:59 Sodium 134 L Potassium 3.2 L Chloride 101 Carbon Dioxide 30 Anion Gap 3 L BUN 21 H Creatinine 0.54 L Estim Creat Clear Calc 99 Estimated GFR > 60 Glucose 124 H POC Capillary Glucose 93 103 Calcium 8.1 L Urine Color Urine Appearance Urine pH Ur Specific [place] Urine Protein Urine Glucose (UA) Urine Ketones Ur Blood (Man) Urine Nitrate Urine Bilirubin Urine Urobilinogen Leukocyte Esterase Rfl Urine RBC Urine WBC Ur Squamous Epith Cells Urine Bacteria Urine Casts Quality VTE Prophylaxis VTE prophylaxis: pharmacologic ordered
--- NOTE | 2025-11-06 10:45 | PCNFU ---
Nutrition Follow-Up Complete: Inadequate energy intake related to NPO status as evidenced by current diet orders Goal: Diet order, PO Intake Patient will continue current goal. Pt current nutrition is Jevity 1.5 at 60 ml/hr. Last recorded weight is 64.7 kg, down from 83 kg on admit. Bowel Motility: Last reported BM 11/02 Labs Reviewed: Alb 2.8, Na 134, BUN 21, Cr 0.54, Glu 124, Hct 41.5 Meds Noted:Lovenox, Protonix Skin: WNL Additional Notes:Patient current with PEG. Tube feedings are being tolerated of Jevity 1.5 at 60 ml/hr. Flush 30 ml q 4 hours. Total Nutrition:1980 kcal/84 gm protein/1003 water. Flush 30 ml q 4 hours would consider increasing flush if Na levels start to increase. Monitor for diet orders, intake, tolerance, wt, labs. Follow up every Wednesday and Wednesday.
[2025-11-06 11:32] LABS: Hematocrit 41.6 % (42.0-52.0); Hemoglobin 13.5 g/dL (14.0-18.0); Immature Granulocyte Percent A 0.8 % (0-0.5); Lymphocytes Absolute Auto 1.01 K/mm3 (0.9-3.2); Mean Corpuscular HGB Conc 32.5 g/dl (32-36); Mean Corpuscular Hemoglobin 32.5 pg (26-34); Mean Corpuscular Volume 100.0 fl (80-100); Nucleated Red Blood Cells Absolute Auto 0.000 K/mm3 (0.0-0.012); Nucleated Red Blood Cells Perc 0.0 % (0.0-0.2); Platelet Count Result 176 k/mm3 (150-375); Red Blood Count 4.16 M/mm3 (4.6-6.20); White Blood Count 10.1 K/mm3 (4.5-10.0)
[2025-11-06] MEDS: POTASSIUM CHLORIDE 20 MEQ ER TABLET 40 MEQ PO (12:07)
[2025-11-06 12:58] LABS: Alanine Aminotransferase 19 U/L (6-50); Albumin Level 3.0 g/dL (3.5-5.1); Alkaline Phosphatase 64 U/L (38-126); Anion Gap 2 mmol/L (4-12); Aspartate Amino Transferase 46 U/L (17-59); Bilirubin,Total 1.1 mg/dL (0.2-1.3); Blood Urea Nitrogen 20 mg/dL (9-20); Calcium 8.6 mg/dL (8.4-10.2); Carbon Dioxide 32 mmol/L (22-30); Chloride 101 mmol/L (98-107); Estimated CRCL calculation 88 ml/min; Estimated Glomerular Filt Rate > 60; Glucose 124 mg/dL (65-110); Potassium 3.5 mmol/L (3.4-5.0); Sodium 135 mmol/L (137-145); Total Protein 5.7 g/dL (6.3-8.2)
[2025-11-06] MEDS: CARBIDOPA/LEVODOPA 25/100 MG TABLET 1 TABLET FEED TUBE (22:29)
[2025-11-07] MEDS: ACETAMINOPHEN 325 MG TABLET 650 MG FEED TUBE ×2 (04:21→21:49)
[2025-11-07 05:13] VITALS: BP 148/73; PULSE 87; RESP 16; TEMP 36.6; O2SAT 97
[2025-11-07] MEDS: CARBIDOPA/LEVODOPA 25/100 MG TABLET 3 TABLET FEED TUBE ×3 (06:47→16:49)
[2025-11-07 06:48] LABS: Anion Gap 3 mmol/L (4-12); Blood Urea Nitrogen 17 mg/dL (9-20); Calcium 8.6 mg/dL (8.4-10.2); Carbon Dioxide 33 mmol/L (22-30); Chloride 100 mmol/L (98-107); Estimated CRCL calculation 84 ml/min; Estimated Glomerular Filt Rate > 60; Glucose 118 mg/dL (65-110); Potassium 3.4 mmol/L (3.4-5.0); Sodium 136 mmol/L (137-145)
[2025-11-07] MEDS: PANTOPRAZOLE SODIUM IV 40 MG VIAL IV PUSH (09:16)
[2025-11-07 09:17] VITALS: PULSE 87
[2025-11-07] MEDS: METOPROLOL TARTRATE 25 MG TABLET FEED TUBE (09:17)
[2025-11-07] MEDS: ATORVASTATIN 40 MG TABLET FEED TUBE (09:17)
[2025-11-07] MEDS: ENOXAPARIN 40 MG/0.4 ML SYRINGE SUB-Q (09:17)
[2025-11-07] MEDS: BISACODYL 10 MG SUPPOSITORY RECTAL (12:28)
--- NOTE | 2025-11-07 13:16 | P.PNIM_ITS ---
Assessment and Plan Assessment and Plan (1) COVID: Code(s): U07.1 - COVID-19 Status: Acute Assessment and Plan: - symptom onset: 10/25 - tested positive for COVID on: 10/26 - CXR Showed Right lung infiltrates - repeat CXR this morning showed worsening bilateral opacities, CT chest revered - Monitor cultures, MRSA negative -complete Levaquin, Flagyl, Remdesivir and Dexamethasone S/p Vanc and Tolicizumab pulmonology following (2) Pneumonia: Qualifiers: Pneumonia type: due to COVID-19 virus Qualified Code(s): U07.1 - COVID- 19; J12.82 - Pneumonia due to coronavirus disease 2019 Code(s): J18.9 - Pneumonia, unspecified organism Status: Acute Assessment and Plan: Gradually improving, continue current treatment. (3) MATT (acute kidney injury): Code(s): N17.9 - Acute kidney failure, unspecified Status: Acute Assessment and Plan: Creatinine 1.43, BUN 51, GFR 48 upon admission on 10/26. No previous history of renal disease or CKD. - renal ultrasound resolved. Cr 1.05 from 1.43 monitor (4) Elevated glucose: Code(s): R73.09 - Other abnormal glucose Status: Acute Assessment and Plan: Elevated glucose upon admission on 10/26, blood sugar 121. No A1c on file. A1c 5.5, no diabetes (5) Parkinson disease: Qualifiers: Dyskinesia presence: unspecified whether dyskinesia Fluctuating manifestations: unspecified whether manifestations fluctuate Qualified Code(s): G20.A1 - Parkinson's disease without dyskinesia, without mention of fluctuations Code(s): G20.A1 - Parkinson's disease without dyskinesia, without mention of fluctuations Status: Chronic Assessment and Plan: History of Parkinson's disease. - continue carbidopa levodopa (6) HTN (hypertension): Qualifiers: Hypertension type: primary hypertension Qualified Code(s): I10 - Essential (primary) hypertension Code(s): I10 - Essential (primary) hypertension Status: Chronic Assessment and Plan: - continue home medications - monitor (7) Dysphagia: Code(s): R13.10 - Dysphagia, unspecified Status: Acute Assessment and Plan: Status post PEG tube placement 11/02/2025 Tube feeds restarted Arrangements for tube feeds Plan Acute hypoxemic respiratory failure, resoling s/p Airvo, now on room air improving continue titrating oxygen Getting physical therapy, Will discharge when bed available in rehab Diet: G-tube feeding DVT Prophylaxis: Lovenox Lines/Tubes: pIV Code Status: full code Subjective Date/time seen: 11/07/25 13:16 Interval history: Patient was seen in my is today. Feeling better. No shortness of breath or chest pain. PEG placed, tolerating TF Review of Systems Review of Systems: All systems reviewed & are unremarkable except as noted in HPI and below Exam Const: General: comfortable and no acute distress Other: , male, elderly, ill-appearing HENMT: Face/Nose/Sinus: Normal nares present Mouth: Yes dry mucous membranes Eyes: General: appearance normal, both eyes and all related structures Sclera: sclerae normal Pupils: Equal, round and reactive pupils present EOM: EOMs intact bilaterally Resp: Effort & Inspection: normal respiratory effort Other: Diminished breath sounds bilaterally no respiratory distress Cardio: Rate: regular rate Rhythm: regular rhythm Other: S1-S2 present without murmur, rub, ectopy GI: Other: Abdomen soft, nondistended, nontender. Normoactive bowel sounds in all quadrants. G-tube in place Skin: General skin exam: normal color and no rashes or lesions noted Wounds: no wounds Neuro: Cranial nerves: Yes Equal, round and reactive pupils present Other: Generalized weakness, A&O x4. Normal speech and sensation. EOM intact. Extrem: General: normal to inspection Psych: Mental Status: mental status grossly normal Other: Masklike affect. Good insight and judgment, pleasant. Objective Data Vital Signs Vital Signs: Vital Signs - 24 hr 11/06/25 14:00 11/06/25 20:00 11/06/25 21:40 Temperature 36.4 C L 36.8 C Pulse Rate 79 89 Respiratory Rate 16 18 Blood Pressure 133/76 125/80 Pulse Oximetry 98 98 Oxygen Delivery Room Air 11/07/25 05:13 11/07/25 09:17 Temperature 36.6 C Pulse Rate 87 87 Respiratory Rate 16 Blood Pressure 148/73 H Pulse Oximetry 97 Oxygen Delivery Intake/Output Intake/Output: Intake & Output 11/04/25 11/05/25 11/06/25 11/07/25 23:59 23:59 23:59 23:59 Intake Total 462 1098 2703 Output Total 839 675 1886 650 Balance -935 878 2838 -650 Meds/Results Medications: Active Medications Generic Name Dose Route Start Last Admin Trade Name Freq PRN Reason Stop Dose Admin Acetaminophen 650 mg 10/27/25 10:34 Acetaminophen 650 Mg Suppository RECTAL Q6H PRN Mild Pain (1-3) or Fever Acetaminophen 650 mg 11/01/25 18:51 11/07/25 04:21 Acetaminophen 325 Mg Tablet FEED TUBE 650 mg Q6H PRN Administration Mild Pain (1-3) or Fever Albuterol/Ipratropium 3 ml 10/26/25 23:08 Ipratropium 0.5 Mg/Albuterol Sulfate 2.5 Mg (Base) Ampul.Neb 3 Ml INHALATION Q6HRT PRN Shortness Of Breath Or Wheezing Atorvastatin Calcium 40 mg 11/02/25 09:00 11/07/25 09:17 Atorvastatin 40 Mg Tablet FEED TUBE 40 mg DAILY MARTINEZ Administration Bisacodyl 10 mg 10/29/25 16:43 Bisacodyl 10 Mg Suppository RECTAL QAM PRN Constipation Carbidopa/Levodopa 3 tablet 11/02/25 06:00 11/07/25 12:27 Carbidopa/Levodopa 25/100 Mg Tablet FEED TUBE 3 tablet 0600,1100,1600 MARTINEZ Administration Carbidopa/Levodopa 1 tablet 11/01/25 22:00 11/06/25 22:29 Carbidopa/Levodopa 25/100 Mg Tablet FEED TUBE 1 tablet HS MARTINEZ Administration Enoxaparin Sodium 40 mg 11/04/25 12:30 11/07/25 09:17 Enoxaparin 40 Mg/0.4 Ml Syringe SUB-Q 40 mg DAILY MARTINEZ Administration Hydralazine HCl 10 mg 11/02/25 06:10 11/02/25 06:19 Hydralazine Hcl 20 Mg/Ml Vial IV PUSH 10 mg Q4HR PRN Administration Blood Pressure - High Hydromorphone HCl 1 mg 11/02/25 16:11 Hydromorphone Hcl Inj (*Crx) 1 Mg/Ml Syr IV PUSH Q3H PRN Pain Rated 7-10 Levofloxacin 250 mg 11/06/25 10:50 11/07/25 09:17 Levofloxacin 250 Mg Tablet PO 11/13/25 10:50 250 mg DAILY MARTINEZ Administration Metoprolol Tartrate 25 mg 11/02/25 09:00 11/07/25 09:17 Metoprolol Tartrate 25 Mg Tablet FEED TUBE 25 mg DAILY MARTINEZ Administration Pantoprazole Sodium 40 mg 10/27/25 09:00 11/07/25 09:16 Pantoprazole Sodium Iv 40 Mg Vial IV PUSH 40 mg QAM MARTINEZ Administration Polyethylene Glycol 17 gm 11/07/25 11:15 11/07/25 12:27 Polyethylene Glycol 3350 17 Gm Powd.Pack PO 17 gm QAM MARTINEZ Administration Radiology Results: ITS Impressions Chest X-Ray 10/27/25 07:23 IMPRESSION: 1. Worsening scattered bilateral airspace disease, left lung worse. Chest CT 10/27/25 14:23 IMPRESSION: Severe bilateral bronchopneumonia. Follow-up is recommended to assess resolution. Chest CTA 10/28/25 11:20 IMPRESSION: 1. No PE identified given respiratory motion artifact. 2. Large dense bilateral lower lobe airspace disease, consider aspiration. Venous Doppler Study 10/29/25 12:50 Impression: Negative for DVT. Modified Barium Swallow 11/01/25 14:42 IMPRESSION: Aspiration observed. Significant residual persisted corresponding to area of the superior most portion of the esophagus. See speech therapist's note for complete evaluation. Tube Placement 11/01/25 15:02 IMPRESSION: Dobbhoff placement as above with no immediate complication. Labs Labs: Laboratory Results - last 24 hr 11/06/25 11/07/25 11/07/25 17:06 00:00 05:22 Sodium 136 L Potassium 3.4 Chloride 100 Carbon Dioxide 33 H Anion Gap 3 L BUN 17 Creatinine 0.59 L Estim Creat Clear Calc 84 Estimated GFR > 60 Glucose 118 H POC Capillary Glucose 83 103 Calcium 8.6 11/07/25 11:38 Sodium Potassium Chloride Carbon Dioxide Anion Gap BUN Creatinine Estim Creat Clear Calc Estimated GFR Glucose POC Capillary Glucose 95 Calcium Quality VTE Prophylaxis VTE prophylaxis: pharmacologic ordered
[2025-11-07 14:00] VITALS: BP 130/78; PULSE 105; RESP 20; TEMP 36.1; O2SAT 100
[2025-11-07 21:45] VITALS: BP 139/81; PULSE 88; RESP 18; TEMP 36.6; O2SAT 98
[2025-11-07] MEDS: CARBIDOPA/LEVODOPA 25/100 MG TABLET 1 TABLET FEED TUBE (21:50)
[2025-11-08] MEDS: ACETAMINOPHEN 325 MG TABLET 650 MG FEED TUBE ×3 (03:47→16:57)
[2025-11-08 05:08] VITALS: BP 147/77; PULSE 94; RESP 16; TEMP 36.7; O2SAT 100
[2025-11-08] MEDS: CARBIDOPA/LEVODOPA 25/100 MG TABLET 3 TABLET FEED TUBE ×3 (06:44→16:57)
[2025-11-08 08:40] VITALS: PULSE 96
[2025-11-08] MEDS: METOPROLOL TARTRATE 25 MG TABLET FEED TUBE (08:40)
[2025-11-08] MEDS: PANTOPRAZOLE SODIUM IV 40 MG VIAL IV PUSH (08:40)
[2025-11-08] MEDS: ENOXAPARIN 40 MG/0.4 ML SYRINGE SUB-Q (08:42)
[2025-11-08] MEDS: ATORVASTATIN 40 MG TABLET FEED TUBE (08:47)
--- NOTE | 2025-11-08 09:20 | P.PNIM_ITS ---
Assessment and Plan Assessment and Plan (1) COVID: Code(s): U07.1 - COVID-19 Status: Acute Assessment and Plan: - symptom onset: 10/25 - tested positive for COVID on: 10/26 - CXR Showed Right lung infiltrates - repeat CXR this morning showed worsening bilateral opacities, CT chest revered - Monitor cultures, MRSA negative -complete Levaquin, Flagyl, Remdesivir and Dexamethasone S/p Vanc and Tolicizumab pulmonology following (2) Pneumonia: Qualifiers: Pneumonia type: due to COVID-19 virus Qualified Code(s): U07.1 - COVID- 19; J12.82 - Pneumonia due to coronavirus disease 2019 Code(s): J18.9 - Pneumonia, unspecified organism Status: Acute Assessment and Plan: Gradually improving, continue current treatment. (3) MATT (acute kidney injury): Code(s): N17.9 - Acute kidney failure, unspecified Status: Acute Assessment and Plan: Creatinine 1.43, BUN 51, GFR 48 upon admission on 10/26. No previous history of renal disease or CKD. - renal ultrasound resolved. Cr 1.05 from 1.43 monitor (4) Elevated glucose: Code(s): R73.09 - Other abnormal glucose Status: Acute Assessment and Plan: Elevated glucose upon admission on 10/26, blood sugar 121. No A1c on file. A1c 5.5, no diabetes (5) Parkinson disease: Qualifiers: Dyskinesia presence: unspecified whether dyskinesia Fluctuating manifestations: unspecified whether manifestations fluctuate Qualified Code(s): G20.A1 - Parkinson's disease without dyskinesia, without mention of fluctuations Code(s): G20.A1 - Parkinson's disease without dyskinesia, without mention of fluctuations Status: Chronic Assessment and Plan: History of Parkinson's disease. - continue carbidopa levodopa (6) HTN (hypertension): Qualifiers: Hypertension type: primary hypertension Qualified Code(s): I10 - Essential (primary) hypertension Code(s): I10 - Essential (primary) hypertension Status: Chronic Assessment and Plan: - continue home medications - monitor (7) Dysphagia: Code(s): R13.10 - Dysphagia, unspecified Status: Acute Assessment and Plan: Status post PEG tube placement 11/02/2025 Tube feeds restarted Arrangements for tube feeds Plan 11/08/2025 Acute hypoxemic respiratory failure, resoling s/p Airvo, now on room air improving continue titrating oxygen Getting physical therapy, Will discharge when bed available in rehab Diet: G-tube feeding DVT Prophylaxis: Lovenox Lines/Tubes: pIV Code Status: full code Subjective Date/time seen: 11/08/25 09:20 Interval history: Patient was seen in my is today. Feeling better. No shortness of breath or chest pain. PEG placed, tolerating TF Review of Systems Review of Systems: All systems reviewed & are unremarkable except as noted in HPI and below Exam Const: General: comfortable and no acute distress Other: , male, elderly, ill-appearing HENMT: Face/Nose/Sinus: Normal nares present Mouth: Yes dry mucous membranes Eyes: General: appearance normal, both eyes and all related structures Sclera: sclerae normal Pupils: Equal, round and reactive pupils present EOM: EOMs intact bilaterally Resp: Effort & Inspection: normal respiratory effort Other: Diminished breath sounds bilaterally no respiratory distress Cardio: Rate: regular rate Rhythm: regular rhythm Other: S1-S2 present without murmur, rub, ectopy GI: Other: Abdomen soft, nondistended, nontender. Normoactive bowel sounds in all quadrants. G-tube in place Skin: General skin exam: normal color and no rashes or lesions noted Wounds: no wounds Neuro: Cranial nerves: Yes Equal, round and reactive pupils present Other: Generalized weakness, A&O x4. Normal speech and sensation. EOM intact. Extrem: General: normal to inspection Psych: Mental Status: mental status grossly normal Other: Masklike affect. Good insight and judgment, pleasant. Objective Data Vital Signs Vital Signs: Vital Signs - 24 hr 11/07/25 14:00 11/07/25 20:00 11/07/25 21:45 Temperature 36.1 C L 36.6 C Pulse Rate 105 H 88 Respiratory Rate 20 18 Blood Pressure 130/78 139/81 Pulse Oximetry 100 98 Oxygen Delivery Room Air 11/08/25 05:08 11/08/25 08:40 Temperature 36.7 C Pulse Rate 94 96 Respiratory Rate 16 Blood Pressure 147/77 H Pulse Oximetry 100 Oxygen Delivery Intake/Output Intake/Output: Intake & Output 11/05/25 11/06/25 11/07/25 11/08/25 23:59 23:59 23:59 23:59 Intake Total 1098 2703 1769 0 Output Total 800 1000 1350 500 Balance 298 1703 419 -500 Meds/Results Medications: Active Medications Generic Name Dose Route Start Last Admin Trade Name Freq PRN Reason Stop Dose Admin Acetaminophen 650 mg 10/27/25 10:34 Acetaminophen 650 Mg Suppository RECTAL Q6H PRN Mild Pain (1-3) or Fever Acetaminophen 650 mg 11/01/25 18:51 11/08/25 08:46 Acetaminophen 325 Mg Tablet FEED TUBE 650 mg Q6H PRN Administration Mild Pain (1-3) or Fever Albuterol/Ipratropium 3 ml 10/26/25 23:08 Ipratropium 0.5 Mg/Albuterol Sulfate 2.5 Mg (Base) Ampul.Neb 3 Ml INHALATION Q6HRT PRN Shortness Of Breath Or Wheezing Atorvastatin Calcium 40 mg 11/02/25 09:00 11/08/25 08:47 Atorvastatin 40 Mg Tablet FEED TUBE 40 mg DAILY MARTINEZ Administration Bisacodyl 10 mg 10/29/25 16:43 Bisacodyl 10 Mg Suppository RECTAL QAM PRN Constipation Carbidopa/Levodopa 3 tablet 11/02/25 06:00 11/08/25 06:44 Carbidopa/Levodopa 25/100 Mg Tablet FEED TUBE 3 tablet 0600,1100,1600 MARTINEZ Administration Carbidopa/Levodopa 1 tablet 11/01/25 22:00 11/07/25 21:50 Carbidopa/Levodopa 25/100 Mg Tablet FEED TUBE 1 tablet HS MARTINEZ Administration Enoxaparin Sodium 40 mg 11/04/25 12:30 11/08/25 08:42 Enoxaparin 40 Mg/0.4 Ml Syringe SUB-Q 40 mg DAILY MARTINEZ Administration Hydralazine HCl 10 mg 11/02/25 06:10 11/02/25 06:19 Hydralazine Hcl 20 Mg/Ml Vial IV PUSH 10 mg Q4HR PRN Administration Blood Pressure - High Hydromorphone HCl 1 mg 11/02/25 16:11 Hydromorphone Hcl Inj (*Crx) 1 Mg/Ml Syr IV PUSH Q3H PRN Pain Rated 7-10 Levofloxacin 250 mg 11/08/25 09:00 11/08/25 08:39 Levofloxacin 250 Mg Tablet FEED TUBE 11/13/25 10:50 250 mg DAILY MARTINEZ Administration Metoprolol Tartrate 25 mg 11/02/25 09:00 11/08/25 08:40 Metoprolol Tartrate 25 Mg Tablet FEED TUBE 25 mg DAILY MARTINEZ Administration Pantoprazole Sodium 40 mg 10/27/25 09:00 11/08/25 08:40 Pantoprazole Sodium Iv 40 Mg Vial IV PUSH 40 mg QAM MARTINEZ Administration Polyethylene Glycol 17 gm 11/08/25 09:00 11/08/25 08:44 Polyethylene Glycol 3350 17 Gm Powd.Pack FEED TUBE 17 gm QAM MARTINEZ Administration Radiology Results: ITS Impressions Chest X-Ray 10/27/25 07:23 IMPRESSION: 1. Worsening scattered bilateral airspace disease, left lung worse. Chest CT 10/27/25 14:23 IMPRESSION: Severe bilateral bronchopneumonia. Follow-up is recommended to assess resolution. Chest CTA 10/28/25 11:20 IMPRESSION: 1. No PE identified given respiratory motion artifact. 2. Large dense bilateral lower lobe airspace disease, consider aspiration. Venous Doppler Study 10/29/25 12:50 Impression: Negative for DVT. Modified Barium Swallow 11/01/25 14:42 IMPRESSION: Aspiration observed. Significant residual persisted corresponding to area of the superior most portion of the esophagus. See speech therapist's note for complete evaluation. Tube Placement 11/01/25 15:02 IMPRESSION: Dobbhoff placement as above with no immediate complication. Labs Labs: Laboratory Results - last 24 hr 11/07/25 11/07/25 11/08/25 11:38 17:51 01:00 POC Capillary Glucose 95 102 124 H Quality VTE Prophylaxis VTE prophylaxis: pharmacologic ordered
[2025-11-08] MEDS: CYCLOBENZAPRINE HCL 10 MG TABLET PO ×3 (10:47→21:50)
[2025-11-08 14:00] VITALS: BP 148/93; PULSE 82; RESP 18; TEMP 36.3; O2SAT 96
[2025-11-08] MEDS: HYDROmorphone HCL INJ (*CRX) 1 MG/ML SYR IV PUSH (21:49)
[2025-11-08] MEDS: CARBIDOPA/LEVODOPA 25/100 MG TABLET 1 TABLET FEED TUBE (21:50)
[2025-11-08 21:53] VITALS: BP 122/70; PULSE 85; RESP 18; TEMP 36.9; O2SAT 94
[2025-11-09] MEDS: CARBIDOPA/LEVODOPA 25/100 MG TABLET 3 TABLET FEED TUBE ×3 (05:18→16:01)
[2025-11-09] MEDS: HYDROmorphone HCL INJ (*CRX) 1 MG/ML SYR IV PUSH (05:32)
[2025-11-09 06:00] VITALS: BP 136/79; PULSE 90; RESP 18; TEMP 36.7; O2SAT 90
[2025-11-09] MEDS: ATORVASTATIN 40 MG TABLET FEED TUBE (08:27)
[2025-11-09 08:28] VITALS: PULSE 90
[2025-11-09] MEDS: METOPROLOL TARTRATE 25 MG TABLET FEED TUBE (08:28)
[2025-11-09] MEDS: ACETAMINOPHEN 325 MG TABLET 650 MG FEED TUBE ×3 (08:28→21:42)
[2025-11-09] MEDS: PANTOPRAZOLE SODIUM IV 40 MG VIAL IV PUSH (08:29)
[2025-11-09] MEDS: ENOXAPARIN 40 MG/0.4 ML SYRINGE SUB-Q (08:29)
[2025-11-09] MEDS: CYCLOBENZAPRINE HCL 10 MG TABLET PO (08:29)
--- NOTE | 2025-11-09 12:29 | P.PNIM_ITS ---
Assessment and Plan Assessment and Plan (1) COVID: Code(s): U07.1 - COVID-19 Status: Acute Assessment and Plan: - symptom onset: 10/25 - tested positive for COVID on: 10/26 - CXR Showed Right lung infiltrates - repeat CXR this morning showed worsening bilateral opacities, CT chest revered - Monitor cultures, MRSA negative -complete Levaquin, Flagyl, Remdesivir and Dexamethasone S/p Vanc and Tolicizumab pulmonology following (2) Pneumonia: Qualifiers: Pneumonia type: due to COVID-19 virus Qualified Code(s): U07.1 - COVID- 19; J12.82 - Pneumonia due to coronavirus disease 2019 Code(s): J18.9 - Pneumonia, unspecified organism Status: Acute Assessment and Plan: Gradually improving, continue current treatment. (3) MATT (acute kidney injury): Code(s): N17.9 - Acute kidney failure, unspecified Status: Acute Assessment and Plan: Creatinine 1.43, BUN 51, GFR 48 upon admission on 10/26. No previous history of renal disease or CKD. - renal ultrasound resolved. Cr 1.05 from 1.43 monitor (4) Elevated glucose: Code(s): R73.09 - Other abnormal glucose Status: Acute Assessment and Plan: Elevated glucose upon admission on 10/26, blood sugar 121. No A1c on file. A1c 5.5, no diabetes (5) Parkinson disease: Qualifiers: Dyskinesia presence: unspecified whether dyskinesia Fluctuating manifestations: unspecified whether manifestations fluctuate Qualified Code(s): G20.A1 - Parkinson's disease without dyskinesia, without mention of fluctuations Code(s): G20.A1 - Parkinson's disease without dyskinesia, without mention of fluctuations Status: Chronic Assessment and Plan: History of Parkinson's disease. - continue carbidopa levodopa (6) HTN (hypertension): Qualifiers: Hypertension type: primary hypertension Qualified Code(s): I10 - Essential (primary) hypertension Code(s): I10 - Essential (primary) hypertension Status: Chronic Assessment and Plan: - continue home medications - monitor (7) Dysphagia: Code(s): R13.10 - Dysphagia, unspecified Status: Acute Assessment and Plan: Status post PEG tube placement 11/02/2025 Tube feeds restarted Arrangements for tube feeds Plan Constipation. Will add Dulcolax and senna currently on MiraLax will check KUB. Acute hypoxemic respiratory failure resolved. Required Airvo in the beginning. Disposition: Will discharge when bed available in rehab tentative planned coming Wednesday Diet: G-tube feeding DVT Prophylaxis: Lovenox Lines/Tubes: pIV Code Status: full code Subjective Date/time seen: 11/09/25 12:29 Interval history: Patient had some spasmodic pain in right-sided flank. Unable to pinpoint. Has not had any good bowel movement for several days. Tolerating tube feed. at bedside. Discussed with her. Review of Systems Review of Systems: All systems reviewed & are unremarkable except as noted in HPI and below Exam Const: General: comfortable and no acute distress Other: , male, elderly, ill-appearing HENMT: Face/Nose/Sinus: Normal nares present Mouth: Yes dry mucous membranes Eyes: General: appearance normal, both eyes and all related structures Sclera: sclerae normal Pupils: Equal, round and reactive pupils present EOM: EOMs intact bilaterally Resp: Effort & Inspection: normal respiratory effort Other: Diminished breath sounds bilaterally no respiratory distress Cardio: Rate: regular rate Rhythm: regular rhythm Other: S1-S2 present without murmur, rub, ectopy GI: Other: Abdomen soft, nondistended, nontender. Normoactive bowel sounds in all quadrants. G-tube in place Skin: General skin exam: normal color and no rashes or lesions noted Wounds: no wounds Neuro: Cranial nerves: Yes Equal, round and reactive pupils present Other: Generalized weakness, A&O x4. Normal speech and sensation. EOM intact. Extrem: General: normal to inspection Psych: Mental Status: mental status grossly normal Other: Masklike affect. Good insight and judgment, pleasant. Objective Data Vital Signs Vital Signs: Vital Signs - 24 hr 11/08/25 14:00 11/08/25 20:00 11/08/25 21:53 Temperature 97.4 F L 98.5 F Pulse Rate 82 85 Respiratory Rate 18 18 Blood Pressure 148/93 H 122/70 Pulse Oximetry 96 94 Oxygen Delivery Room Air 11/09/25 06:00 11/09/25 08:28 11/09/25 08:45 Temperature 98.0 F Pulse Rate 90 90 Respiratory Rate 18 Blood Pressure 136/79 Pulse Oximetry 90 Oxygen Delivery Room Air Intake/Output Intake/Output: Intake & Output 11/06/25 11/07/25 11/08/25 11/09/25 23:59 23:59 23:59 23:59 Intake Total 2703 1769 1560 1242 Output Total 1000 1350 1100 1000 Balance 1703 419 460 242 Meds/Results Medications: Active Medications Generic Name Dose Route Start Last Admin Trade Name Freq PRN Reason Stop Dose Admin Acetaminophen 650 mg 11/01/25 18:51 11/09/25 08:28 Acetaminophen 325 Mg Tablet FEED TUBE 650 mg Q6H PRN Administration Mild Pain (1-3) or Fever Acetaminophen 650 mg 11/09/25 17:00 Acetaminophen 325 Mg Tablet PO BID MARTINEZ Albuterol/Ipratropium 3 ml 10/26/25 23:08 Ipratropium 0.5 Mg/Albuterol Sulfate 2.5 Mg (Base) Ampul.Neb 3 Ml INHALATION Q6HRT PRN Shortness Of Breath Or Wheezing Atorvastatin Calcium 40 mg 11/02/25 09:00 11/09/25 08:27 Atorvastatin 40 Mg Tablet FEED TUBE 40 mg DAILY MARTINEZ Administration Bisacodyl 10 mg 10/29/25 16:43 Bisacodyl 10 Mg Suppository RECTAL QAM PRN Constipation Carbidopa/Levodopa 3 tablet 11/02/25 06:00 11/09/25 11:54 Carbidopa/Levodopa 25/100 Mg Tablet FEED TUBE 3 tablet 0600,1100,1600 MARTINEZ Administration Carbidopa/Levodopa 1 tablet 11/01/25 22:00 11/08/25 21:50 Carbidopa/Levodopa 25/100 Mg Tablet FEED TUBE 1 tablet HS MARTINEZ Administration Cyclobenzaprine HCl 10 mg 11/08/25 10:29 11/09/25 08:29 Cyclobenzaprine Hcl 10 Mg Tablet PO 10 mg Q6HR PRN Administration Muscle Spasm Docusate Sodium 50 mg 11/09/25 21:00 Docusate Sodium Liq 100 Mg/10 Ml Udc FEED TUBE Q12HR MARTINEZ Enoxaparin Sodium 40 mg 11/04/25 12:30 11/09/25 08:29 Enoxaparin 40 Mg/0.4 Ml Syringe SUB-Q 40 mg DAILY MARTINEZ Administration Hydralazine HCl 10 mg 11/02/25 06:10 11/02/25 06:19 Hydralazine Hcl 20 Mg/Ml Vial IV PUSH 10 mg Q4HR PRN Administration Blood Pressure - High Levofloxacin 250 mg 11/08/25 09:00 11/09/25 08:29 Levofloxacin 250 Mg Tablet FEED TUBE 11/13/25 10:50 250 mg DAILY MARTINEZ Administration Metoprolol Tartrate 25 mg 11/02/25 09:00 11/09/25 08:28 Metoprolol Tartrate 25 Mg Tablet FEED TUBE 25 mg DAILY MARTINEZ Administration Pantoprazole Sodium 40 mg 10/27/25 09:00 11/09/25 08:29 Pantoprazole Sodium Iv 40 Mg Vial IV PUSH 40 mg QAM MARTINEZ Administration Polyethylene Glycol 17 gm 11/08/25 09:00 11/09/25 08:34 Polyethylene Glycol 3350 17 Gm Powd.Pack FEED TUBE 17 gm QAM MARTINEZ Administration Senna 8.8 mg 11/09/25 21:00 Sennosides 8.8 Mg/5 Ml Syrup FEED TUBE Q12HR MARTINEZ Radiology Results: ITS Impressions Chest X-Ray 10/27/25 07:23 IMPRESSION: 1. Worsening scattered bilateral airspace disease, left lung worse. Chest CT 10/27/25 14:23 IMPRESSION: Severe bilateral bronchopneumonia. Follow-up is recommended to assess resolution. Chest CTA 10/28/25 11:20 IMPRESSION: 1. No PE identified given respiratory motion artifact. 2. Large dense bilateral lower lobe airspace disease, consider aspiration. Venous Doppler Study 10/29/25 12:50 Impression: Negative for DVT. Modified Barium Swallow 11/01/25 14:42 IMPRESSION: Aspiration observed. Significant residual persisted corresponding to area of the superior most portion of the esophagus. See speech therapist's note for complete evaluation. Tube Placement 11/01/25 15:02 IMPRESSION: Dobbhoff placement as above with no immediate complication. Labs Labs: Laboratory Results - last 24 hr 11/08/25 11/09/25 11/09/25 17:18 00:03 07:56 POC Capillary Glucose 112 H 122 H 126 H Quality VTE Prophylaxis VTE prophylaxis: pharmacologic ordered
[2025-11-09 14:00] VITALS: BP 130/78; PULSE 93; RESP 20; TEMP 36.5; O2SAT 100
--- NOTE | 2025-11-09 14:23 | PCNFU ---
Nutrition Follow-Up Complete: Inadequate energy intake related to NPO status as evidenced by current diet orders Diet order, PO Intake - Not able to meet goal PO. PEG tube feedings Goal: Pt current nutrition is Jevity 1,5 @ goal rate 60 ml/h with flushes 30 ml q 4 hours. Nutrition recommendation: Continue PEG tube feedings at Jevity 1.5 @ 60 ml/h. Increase flushes to 150 ml q 4 hours to meet fluid needs Last recorded weight is 77.9 kg. Bowel Motility: + BM 11/02. Bowel regimen in place Labs Reviewed: No labs since 11.07 Meds Noted: Lovenox, protonix, senna, colace, miralax Skin: No skin issues noted Additional Notes: Discussed with RN. Flushes @ 30 ml q 4 hours inadequate for fluid needs. Jevity 1.5 @ 60 provides 1980 kcal, 84 g protein, 1003 ml free water. Flushes 150 ml q 4 hours total water 1903 ml/d. Tube feeding rate meets needs @ 25 kcal/kg, 1.1 g protein/kg. Adequate for needs. Monitor for diet orders, intake, tolerance, wt, labs. Follow up in 3 days.
[2025-11-09] MEDS: BISACODYL 10 MG SUPPOSITORY RECTAL (16:01)
[2025-11-09] MEDS: SENNOSIDES 8.8 MG/5 ML SYRUP FEED TUBE (16:13)
[2025-11-09] MEDS: CYCLOBENZAPRINE HCL 10 MG TABLET FEED TUBE (21:39)
[2025-11-09] MEDS: CARBIDOPA/LEVODOPA 25/100 MG TABLET 1 TABLET FEED TUBE (21:39)
[2025-11-09 22:00] VITALS: BP 159/85; PULSE 87; RESP 18; TEMP 36.2; O2SAT 94
[2025-11-10 06:00] VITALS: BP 108/64; PULSE 93; RESP 16; TEMP 36.5; O2SAT 99
[2025-11-10] MEDS: ACETAMINOPHEN 325 MG TABLET 650 MG FEED TUBE ×3 (06:10→17:09)
[2025-11-10] MEDS: CARBIDOPA/LEVODOPA 25/100 MG TABLET 3 TABLET FEED TUBE ×3 (06:11→17:09)
[2025-11-10] MEDS: CYCLOBENZAPRINE HCL 10 MG TABLET FEED TUBE ×2 (06:11→21:18)
[2025-11-10 06:32] LABS: Hematocrit 42.5 % (42.0-52.0); Hemoglobin 14.0 g/dL (14.0-18.0); Immature Granulocyte Percent A 0.8 % (0-0.5); Lymphocytes Absolute Auto 1.12 K/mm3 (0.9-3.2); Mean Corpuscular HGB Conc 32.9 g/dl (32-36); Mean Corpuscular Hemoglobin 32.7 pg (26-34); Mean Corpuscular Volume 99.3 fl (80-100); Nucleated Red Blood Cells Absolute Auto 0.000 K/mm3 (0.0-0.012); Nucleated Red Blood Cells Perc 0.0 % (0.0-0.2); Platelet Count Result 168 k/mm3 (150-375); Red Blood Count 4.28 M/mm3 (4.6-6.20); White Blood Count 6.6 K/mm3 (4.5-10.0)
[2025-11-10 06:52] LABS: Alanine Aminotransferase 32 U/L (6-50); Albumin Level 3.2 g/dL (3.5-5.1); Alkaline Phosphatase 60 U/L (38-126); Anion Gap 2 mmol/L (4-12); Aspartate Amino Transferase 47 U/L (17-59); Bilirubin,Total 0.7 mg/dL (0.2-1.3); Blood Urea Nitrogen 20 mg/dL (9-20); Calcium 9.0 mg/dL (8.4-10.2); Carbon Dioxide 33 mmol/L (22-30); Chloride 100 mmol/L (98-107); Estimated CRCL calculation 102 ml/min; Estimated Glomerular Filt Rate > 60; Glucose 107 mg/dL (65-110); Magnesium 2.1 mg/dL (1.6-2.3); Potassium 4.1 mmol/L (3.4-5.0); Sodium 135 mmol/L (137-145); Total Protein 6.1 g/dL (6.3-8.2)
[2025-11-10] MEDS: BISACODYL 10 MG SUPPOSITORY RECTAL (08:14)
[2025-11-10] MEDS: ATORVASTATIN 40 MG TABLET FEED TUBE (08:27)
[2025-11-10] MEDS: SENNOSIDES 8.8 MG/5 ML SYRUP FEED TUBE ×2 (08:28→21:18)
[2025-11-10] MEDS: ENOXAPARIN 40 MG/0.4 ML SYRINGE SUB-Q (08:28)
[2025-11-10 08:30] VITALS: PULSE 104
[2025-11-10] MEDS: METOPROLOL TARTRATE 25 MG TABLET FEED TUBE (08:30)
[2025-11-10] MEDS: PANTOPRAZOLE SODIUM IV 40 MG VIAL IV PUSH (08:31)
--- NOTE | 2025-11-10 13:15 | PM.IMPN2 ---
Assessment and Plan Assessment and Plan (1) COVID: Code(s): U07.1 - COVID-19 Status: Acute Assessment and Plan: - symptom onset: 10/25 - tested positive for COVID on: 10/26 - CXR Showed Right lung infiltrates - repeat CXR this morning showed worsening bilateral opacities, CT chest revered - Monitor cultures, MRSA negative -complete Levaquin, Flagyl, Remdesivir and Dexamethasone S/p Vanc and Tolicizumab pulmonology following (2) Pneumonia: Qualifiers: Pneumonia type: due to COVID-19 virus Qualified Code(s): U07.1 - COVID-19; J12.82 - Pneumonia due to coronavirus disease 2019 Code(s): J18.9 - Pneumonia, unspecified organism Status: Acute Assessment and Plan: Gradually improving, continue current treatment. (3) MATT (acute kidney injury): Code(s): N17.9 - Acute kidney failure, unspecified Status: Acute Assessment and Plan: Creatinine 1.43, BUN 51, GFR 48 upon admission on 10/26. No previous history of renal disease or CKD. - renal ultrasound resolved. Cr 1.05 from 1.43 monitor (4) Elevated glucose: Code(s): R73.09 - Other abnormal glucose Status: Acute Assessment and Plan: Elevated glucose upon admission on 10/26, blood sugar 121. No A1c on file. A1c 5.5, no diabetes (5) Parkinson disease: Qualifiers: Dyskinesia presence: unspecified whether dyskinesia Fluctuating manifestations: unspecified whether manifestations fluctuate Qualified Code(s): G20.A1 - Parkinson's disease without dyskinesia, without mention of fluctuations Code(s): G20.A1 - Parkinson's disease without dyskinesia, without mention of fluctuations Status: Chronic Assessment and Plan: History of Parkinson's disease. - continue carbidopa levodopa (6) HTN (hypertension): Qualifiers: Hypertension type: primary hypertension Qualified Code(s): I10 - Essential (primary) hypertension Code(s): I10 - Essential (primary) hypertension Status: Chronic Assessment and Plan: - continue home medications - monitor (7) Dysphagia: Code(s): R13.10 - Dysphagia, unspecified Status: Acute Assessment and Plan: Status post PEG tube placement 11/02/2025 Tube feeds restarted Arrangements for tube feeds Plan Constipation. Will add Dulcolax and senna currently on MiraLax KUB with fecal impaction noted. Enema and suppository p.r.n. ordered. Also will order MOM today Acute hypoxemic respiratory failure resolved. Required Airvo in the beginning. Disposition: Will discharge when bed available in rehab tentative planned coming Wednesday Diet: G-tube feeding DVT Prophylaxis: Lovenox Lines/Tubes: pIV Code Status: full code Subjective Date/time seen: 11/10/25 13:15 Interval history: Patient having intermittent back pain. Received Dulcolax suppository earlier today. Received same yesterday along with enema. No bowel movement yet. Tolerating tube feed. No nausea vomiting. at bedside and discussed with her. Review of Systems Review of Systems: All systems reviewed & are unremarkable except as noted in HPI and below Exam Const: General: comfortable and no acute distress Other: , male, elderly, ill-appearing HENMT: Face/Nose/Sinus: Normal nares present Mouth: Yes dry mucous membranes Eyes: General: appearance normal, both eyes and all related structures Sclera: sclerae normal Pupils: Equal, round and reactive pupils present EOM: EOMs intact bilaterally Resp: Effort & Inspection: normal respiratory effort Other: Diminished breath sounds bilaterally no respiratory distress Cardio: Rate: regular rate Rhythm: regular rhythm Other: S1-S2 present without murmur, rub, ectopy GI: Other: Abdomen soft, nondistended, nontender. Normoactive bowel sounds in all quadrants. G-tube in place Skin: General skin exam: normal color and no rashes or lesions noted Wounds: no wounds Neuro: Cranial nerves: Yes Equal, round and reactive pupils present Other: Generalized weakness, A&O x4. Normal speech and sensation. EOM intact. Extrem: General: normal to inspection Psych: Mental Status: mental status grossly normal Other: Masklike affect. Good insight and judgment, pleasant. Objective Data Vital Signs Vital Signs: Vital Signs - 24 hr 11/09/25 14:00 11/09/25 20:00 11/09/25 22:00 Temperature 97.7 F 97.1 F L Pulse Rate 93 87 Respiratory Rate 20 18 Blood Pressure 130/78 159/85 H Pulse Oximetry 100 94 Oxygen Delivery Room Air 11/10/25 06:00 11/10/25 08:30 11/10/25 12:15 Temperature 97.7 F Pulse Rate 93 104 H Respiratory Rate 16 Blood Pressure 108/64 Pulse Oximetry 99 Oxygen Delivery Room Air Intake/Output Intake/Output: Intake & Output 11/07/25 11/08/25 11/09/25 11/10/25 23:59 23:59 23:59 23:59 Intake Total 1769 1560 2170 1133 Output Total 1350 1100 1000 Balance 244 452 1358 1133 Meds/Results Medications: Active Medications Generic Name Dose Route Start Last Admin Trade Name Freq PRN Reason Stop Dose Admin Acetaminophen 650 mg 11/01/25 18:51 11/10/25 06:10 Acetaminophen 325 Mg Tablet FEED TUBE 650 mg Q6H PRN Administration Pain or Fever Acetaminophen 650 mg 11/09/25 17:00 11/10/25 08:27 Acetaminophen 325 Mg Tablet FEED TUBE 650 mg BID MARTINEZ Administration Albuterol/Ipratropium 3 ml 10/26/25 23:08 Ipratropium 0.5 Mg/Albuterol Sulfate 2.5 Mg (Base) Ampul.Neb 3 Ml INHALATION Q6HRT PRN Shortness Of Breath Or Wheezing Atorvastatin Calcium 40 mg 11/02/25 09:00 11/10/25 08:27 Atorvastatin 40 Mg Tablet FEED TUBE 40 mg DAILY MARTINEZ Administration Bisacodyl 10 mg 10/29/25 16:43 11/10/25 08:14 Bisacodyl 10 Mg Suppository RECTAL 10 mg QAM PRN Administration Constipation Carbidopa/Levodopa 3 tablet 11/02/25 06:00 11/10/25 11:43 Carbidopa/Levodopa 25/100 Mg Tablet FEED TUBE 3 tablet 0600,1100,1600 MARTINEZ Administration Carbidopa/Levodopa 1 tablet 11/01/25 22:00 11/09/25 21:39 Carbidopa/Levodopa 25/100 Mg Tablet FEED TUBE 1 tablet HS MARTINEZ Administration Cyclobenzaprine HCl 10 mg 11/09/25 15:44 11/10/25 06:11 Cyclobenzaprine Hcl 10 Mg Tablet FEED TUBE 10 mg Q6HR PRN Administration Muscle Spasm Docusate Sodium 50 mg 11/09/25 21:00 11/10/25 08:28 Docusate Sodium Liq 100 Mg/10 Ml Udc FEED TUBE 50 mg Q12HR MARTINEZ Administration Enoxaparin Sodium 40 mg 11/04/25 12:30 11/10/25 08:28 Enoxaparin 40 Mg/0.4 Ml Syringe SUB-Q 40 mg DAILY MARTINEZ Administration Hydralazine HCl 10 mg 11/02/25 06:10 11/02/25 06:19 Hydralazine Hcl 20 Mg/Ml Vial IV PUSH 10 mg Q4HR PRN Administration Blood Pressure - High Levofloxacin 250 mg 11/08/25 09:00 11/10/25 08:28 Levofloxacin 250 Mg Tablet FEED TUBE 11/13/25 10:50 250 mg DAILY MARTINEZ Administration Magnesium Hydroxide 30 ml 11/10/25 13:14 Magnesium Hydroxide Susp 30 Ml Udc FEED TUBE 11/10/25 13:15 ONCE ONE Metoprolol Tartrate 25 mg 11/02/25 09:00 11/10/25 08:30 Metoprolol Tartrate 25 Mg Tablet FEED TUBE 25 mg DAILY MARTINEZ Administration Pantoprazole Sodium 40 mg 10/27/25 09:00 11/10/25 08:31 Pantoprazole Sodium Iv 40 Mg Vial IV PUSH 40 mg QAM MARTINEZ Administration Polyethylene Glycol 17 gm 11/09/25 17:00 11/10/25 08:31 Polyethylene Glycol 3350 17 Gm Powd.Pack FEED TUBE 17 gm BID MARTINEZ Administration Senna 8.8 mg 11/09/25 21:00 11/10/25 08:28 Sennosides 8.8 Mg/5 Ml Syrup FEED TUBE 8.8 mg Q12HR MARTINEZ Administration Radiology Results: ITS Impressions Chest X-Ray 10/27/25 07:23 IMPRESSION: 1. Worsening scattered bilateral airspace disease, left lung worse. Chest CT 10/27/25 14:23 IMPRESSION: Severe bilateral bronchopneumonia. Follow-up is recommended to assess resolution. Chest CTA 10/28/25 11:20 IMPRESSION: 1. No PE identified given respiratory motion artifact. 2. Large dense bilateral lower lobe airspace disease, consider aspiration. Venous Doppler Study 10/29/25 12:50 Impression: Negative for DVT. Modified Barium Swallow 11/01/25 14:42 IMPRESSION: Aspiration observed. Significant residual persisted corresponding to area of the superior most portion of the esophagus. See speech therapist's note for complete evaluation. Tube Placement 11/01/25 15:02 IMPRESSION: Dobbhoff placement as above with no immediate complication. Abdomen X-Ray 11/09/25 15:32 Impression: 1: Fecal impaction of the colon. Labs Labs: Laboratory Results - last 24 hr 11/09/25 11/10/25 11/10/25 18:22 01:22 06:00 WBC 6.6 RBC 4.28 L Hgb 14.0 Hct 42.5 MCV 99.3 MCH 32.7 MCHC 32.9 RDW 13.4 Plt Count 168 MPV 10.3 Immature Gran % (Auto) 0.8 H Neut % (Auto) 68.4 Lymph % (Auto) 17.0 L [place] % (Auto) 11.0 H Eos % (Auto) 2.3 Baso % (Auto) 0.5 Lymph # (Auto) 1.12 [place] # (Auto) 0.7 H Eos # (Auto) 0.2 Baso # (Auto) 0.0 Abs Immat Gran (auto) 0.05 H Absolute Neuts (auto) 4.5 Absolute Nucleated RBC 0.000 Nucleated RBC % 0.0 Sodium 135 L Potassium 4.1 Chloride 100 Carbon Dioxide 33 H Anion Gap 2 L BUN 20 Creatinine 0.58 L Estim Creat Clear Calc 102 Estimated GFR > 60 Glucose 107 POC Capillary Glucose 78 118 H Calcium 9.0 Magnesium 2.1 Total Bilirubin 0.7 AST 47 ALT 32 Alkaline Phosphatase 60 Total Protein 6.1 L Albumin 3.2 L 11/10/25 11:54 WBC RBC Hgb Hct MCV MCH MCHC RDW Plt Count MPV Immature Gran % (Auto) Neut % (Auto) Lymph % (Auto) [place] % (Auto) Eos % (Auto) Baso % (Auto) Lymph # (Auto) [place] # (Auto) Eos # (Auto) Baso # (Auto) Abs Immat Gran (auto) Absolute Neuts (auto) Absolute Nucleated RBC Nucleated RBC % Sodium Potassium Chloride Carbon Dioxide Anion Gap BUN Creatinine Estim Creat Clear Calc Estimated GFR Glucose POC Capillary Glucose 86 Calcium Magnesium Total Bilirubin AST ALT Alkaline Phosphatase Total Protein Albumin Quality VTE Prophylaxis VTE prophylaxis: pharmacologic ordered
[2025-11-10 14:00] VITALS: BP 113/65; PULSE 101; RESP 14; TEMP 36.3; O2SAT 96
[2025-11-10] MEDS: MAGNESIUM HYDROXIDE SUSP 30 ML UDC FEED TUBE (14:36)
--- NOTE | 2025-11-10 14:49 | PCSTNOTE ---
Attempted ST treat but patient just being put on commode and unavailable.
[2025-11-10] MEDS: CARBIDOPA/LEVODOPA 25/100 MG TABLET 1 TABLET FEED TUBE (21:18)
[2025-11-10 22:00] VITALS: BP 111/68; PULSE 91; RESP 18; TEMP 36.4; O2SAT 96
[2025-11-11] MEDS: ACETAMINOPHEN 325 MG TABLET 650 MG FEED TUBE ×3 (03:20→17:02)
[2025-11-11] MEDS: CARBIDOPA/LEVODOPA 25/100 MG TABLET 3 TABLET FEED TUBE ×3 (05:58→17:02)
[2025-11-11 06:00] VITALS: BP 108/59; PULSE 92; RESP 16; TEMP 36.6; O2SAT 96
[2025-11-11] MEDS: SENNOSIDES 8.8 MG/5 ML SYRUP FEED TUBE ×2 (10:22→22:03)
[2025-11-11 10:23] VITALS: PULSE 91
[2025-11-11] MEDS: ATORVASTATIN 40 MG TABLET FEED TUBE (10:23)
[2025-11-11] MEDS: METOPROLOL TARTRATE 25 MG TABLET FEED TUBE (10:23)
[2025-11-11] MEDS: ENOXAPARIN 40 MG/0.4 ML SYRINGE SUB-Q (10:24)
[2025-11-11] MEDS: PANTOPRAZOLE SODIUM IV 40 MG VIAL IV PUSH (10:25)
[2025-11-11 10:30] VITALS: O2SAT 100
--- NOTE | 2025-11-11 13:04 | P.PNIM_ITS ---
Assessment and Plan Assessment and Plan (1) COVID: Code(s): U07.1 - COVID-19 Status: Acute Assessment and Plan: - symptom onset: 10/25 - tested positive for COVID on: 10/26 - CXR Showed Right lung infiltrates - repeat CXR this morning showed worsening bilateral opacities, CT chest revered - Monitor cultures, MRSA negative -complete Levaquin, Flagyl, Remdesivir and Dexamethasone S/p Vanc and Tolicizumab pulmonology following (2) Pneumonia: Qualifiers: Pneumonia type: due to COVID-19 virus Qualified Code(s): U07.1 - COVID- 19; J12.82 - Pneumonia due to coronavirus disease 2019 Code(s): J18.9 - Pneumonia, unspecified organism Status: Acute Assessment and Plan: Gradually improving, continue current treatment. (3) MATT (acute kidney injury): Code(s): N17.9 - Acute kidney failure, unspecified Status: Acute Assessment and Plan: Creatinine 1.43, BUN 51, GFR 48 upon admission on 10/26. No previous history of renal disease or CKD. - renal ultrasound resolved. Cr 1.05 from 1.43 monitor (4) Elevated glucose: Code(s): R73.09 - Other abnormal glucose Status: Acute Assessment and Plan: Elevated glucose upon admission on 10/26, blood sugar 121. No A1c on file. A1c 5.5, no diabetes (5) Parkinson disease: Qualifiers: Dyskinesia presence: unspecified whether dyskinesia Fluctuating manifestations: unspecified whether manifestations fluctuate Qualified Code(s): G20.A1 - Parkinson's disease without dyskinesia, without mention of fluctuations Code(s): G20.A1 - Parkinson's disease without dyskinesia, without mention of fluctuations Status: Chronic Assessment and Plan: History of Parkinson's disease. - continue carbidopa levodopa (6) HTN (hypertension): Qualifiers: Hypertension type: primary hypertension Qualified Code(s): I10 - Essential (primary) hypertension Code(s): I10 - Essential (primary) hypertension Status: Chronic Assessment and Plan: - continue home medications - monitor (7) Dysphagia: Code(s): R13.10 - Dysphagia, unspecified Status: Acute Assessment and Plan: Status post PEG tube placement 11/02/2025 Tube feeds restarted Arrangements for tube feeds Plan Constipation. Added Dulcolax and senna currently on MiraLax KUB with fecal impaction noted. Enema and suppository p.r.n. ordered. Received Mom 11/10/2025. Bowel movement started Acute hypoxemic respiratory failure resolved. Required Airvo in the beginning. Disposition: Will discharge when bed available in rehab tentative planned coming Wednesday Diet: G-tube feeding DVT Prophylaxis: Lovenox Lines/Tubes: pIV Code Status: full code Subjective Date/time seen: 11/11/25 13:04 Interval history: No overnight events. Patient had a good bowel movement yesterday afternoon. Has been having intermittent small bowel movement since then. No new complaints per patient. Review of Systems Review of Systems: All systems reviewed & are unremarkable except as noted in HPI and below Exam Const: General: comfortable and no acute distress Other: , male, elderly, ill-appearing HENMT: Face/Nose/Sinus: Normal nares present Mouth: Yes dry mucous membranes Eyes: General: appearance normal, both eyes and all related structures Sclera: sclerae normal Pupils: Equal, round and reactive pupils present EOM: EOMs intact bilaterally Resp: Effort & Inspection: normal respiratory effort Other: Diminished breath sounds bilaterally no respiratory distress Cardio: Rate: regular rate Rhythm: regular rhythm Other: S1-S2 present without murmur, rub, ectopy GI: Other: Abdomen soft, nondistended, nontender. Normoactive bowel sounds in all quadrants. G-tube in place Skin: General skin exam: normal color and no rashes or lesions noted Wounds: no wounds Neuro: Cranial nerves: Yes Equal, round and reactive pupils present Other: Generalized weakness, A&O x4. Normal speech and sensation. EOM intact. Extrem: General: normal to inspection Psych: Mental Status: mental status grossly normal Other: Masklike affect. Good insight and judgment, pleasant. Objective Data Vital Signs Vital Signs: Vital Signs - 24 hr 11/10/25 14:00 11/10/25 20:00 11/10/25 22:00 Temperature 97.4 F L 97.5 F L Pulse Rate 101 H 91 Respiratory Rate 14 18 Blood Pressure 113/65 111/68 Pulse Oximetry 96 96 Oxygen Delivery Room Air 11/11/25 06:00 11/11/25 10:23 Temperature 97.9 F Pulse Rate 92 91 Respiratory Rate 16 Blood Pressure 108/59 L Pulse Oximetry 96 Oxygen Delivery Intake/Output Intake/Output: Intake & Output 11/08/25 11/09/25 11/10/25 11/11/25 23:59 23:59 23:59 23:59 Intake Total 1560 2170 2033 755 Output Total 1100 1000 Balance 460 1170 2033 755 Meds/Results Medications: Active Medications Generic Name Dose Route Start Last Admin Trade Name Freq PRN Reason Stop Dose Admin Acetaminophen 650 mg 11/01/25 18:51 11/11/25 03:20 Acetaminophen 325 Mg Tablet FEED TUBE 650 mg Q6H PRN Administration Pain or Fever Acetaminophen 650 mg 11/09/25 17:00 11/11/25 10:24 Acetaminophen 325 Mg Tablet FEED TUBE 650 mg BID MARTINEZ Administration Albuterol/Ipratropium 3 ml 10/26/25 23:08 Ipratropium 0.5 Mg/Albuterol Sulfate 2.5 Mg (Base) Ampul.Neb 3 Ml INHALATION Q6HRT PRN Shortness Of Breath Or Wheezing Atorvastatin Calcium 40 mg 11/02/25 09:00 11/11/25 10:23 Atorvastatin 40 Mg Tablet FEED TUBE 40 mg DAILY MARTINEZ Administration Bisacodyl 10 mg 10/29/25 16:43 11/10/25 08:14 Bisacodyl 10 Mg Suppository RECTAL 10 mg QAM PRN Administration Constipation Carbidopa/Levodopa 3 tablet 11/02/25 06:00 11/11/25 10:26 Carbidopa/Levodopa 25/100 Mg Tablet FEED TUBE 3 tablet 0600,1100,1600 AMRTINEZ Administration Carbidopa/Levodopa 1 tablet 11/01/25 22:00 11/10/25 21:18 Carbidopa/Levodopa 25/100 Mg Tablet FEED TUBE 1 tablet HS MARTINEZ Administration Cyclobenzaprine HCl 10 mg 11/09/25 15:44 11/10/25 21:18 Cyclobenzaprine Hcl 10 Mg Tablet FEED TUBE 10 mg Q6HR PRN Administration Muscle Spasm Docusate Sodium 50 mg 11/09/25 21:00 11/11/25 10:22 Docusate Sodium Liq 100 Mg/10 Ml Udc FEED TUBE 50 mg Q12HR MARTINEZ Administration Enoxaparin Sodium 40 mg 11/04/25 12:30 11/11/25 10:24 Enoxaparin 40 Mg/0.4 Ml Syringe SUB-Q 40 mg DAILY MARTINEZ Administration Hydralazine HCl 10 mg 11/02/25 06:10 11/02/25 06:19 Hydralazine Hcl 20 Mg/Ml Vial IV PUSH 10 mg Q4HR PRN Administration Blood Pressure - High Levofloxacin 250 mg 11/08/25 09:00 11/11/25 10:24 Levofloxacin 250 Mg Tablet FEED TUBE 11/13/25 10:50 250 mg DAILY MARTINEZ Administration Metoprolol Tartrate 25 mg 11/02/25 09:00 11/11/25 10:23 Metoprolol Tartrate 25 Mg Tablet FEED TUBE 25 mg DAILY MARTINEZ Administration Pantoprazole Sodium 40 mg 10/27/25 09:00 11/11/25 10:25 Pantoprazole Sodium Iv 40 Mg Vial IV PUSH 40 mg QAM MARTINEZ Administration Polyethylene Glycol 17 gm 11/09/25 17:00 11/11/25 10:22 Polyethylene Glycol 3350 17 Gm Powd.Pack FEED TUBE 17 gm BID MARTINEZ Administration Senna 8.8 mg 11/09/25 21:00 11/11/25 10:22 Sennosides 8.8 Mg/5 Ml Syrup FEED TUBE 8.8 mg Q12HR MARTINEZ Administration Radiology Results: ITS Impressions Chest X-Ray 10/27/25 07:23 IMPRESSION: 1. Worsening scattered bilateral airspace disease, left lung worse. Chest CT 10/27/25 14:23 IMPRESSION: Severe bilateral bronchopneumonia. Follow-up is recommended to assess resolution. Chest CTA 10/28/25 11:20 IMPRESSION: 1. No PE identified given respiratory motion artifact. 2. Large dense bilateral lower lobe airspace disease, consider aspiration. Venous Doppler Study 10/29/25 12:50 Impression: Negative for DVT. Modified Barium Swallow 11/01/25 14:42 IMPRESSION: Aspiration observed. Significant residual persisted corresponding to area of the superior most portion of the esophagus. See speech therapist's note for complete evaluation. Tube Placement 11/01/25 15:02 IMPRESSION: Dobbhoff placement as above with no immediate complication. Abdomen X-Ray 11/09/25 15:32 Impression: 1: Fecal impaction of the colon. Labs Labs: Laboratory Results - last 24 hr 11/11/25 11/11/25 11/11/25 00:07 06:01 11:40 POC Capillary Glucose 100 146 H 123 H Quality VTE Prophylaxis VTE prophylaxis: pharmacologic ordered
[2025-11-11 14:00] VITALS: BP 128/73; PULSE 92; RESP 18; TEMP 36.4; O2SAT 96
[2025-11-11 20:58] VITALS: BP 110/71; PULSE 91; RESP 18; TEMP 36.8; O2SAT 97
[2025-11-11] MEDS: CYCLOBENZAPRINE HCL 10 MG TABLET FEED TUBE (22:03)
[2025-11-11] MEDS: CARBIDOPA/LEVODOPA 25/100 MG TABLET 1 TABLET FEED TUBE (22:03)
[2025-11-11 22:42] LABS: Add Urine Microscopic? YES; Appearance Urine Cloudy (Clear); Glucose Urine UA Negative (Negative); Leukocyte Esterase Ur Negative LEU/UL (Negative); Nitrate Urine Negative (Negative); Non Pathogenic Casts 0-2; Specific Grav Ur 1.015 (1.001-1.035)
[2025-11-12] MEDS: CARBIDOPA/LEVODOPA 25/100 MG TABLET 3 TABLET FEED TUBE ×2 (05:47→10:09)
[2025-11-12 06:00] VITALS: BP 108/68; PULSE 94; RESP 18; TEMP 36.6; O2SAT 97
[2025-11-12 06:10] LABS: Hematocrit 40.8 % (42.0-52.0); Hemoglobin 13.2 g/dL (14.0-18.0); Immature Granulocyte Percent A 0.9 % (0-0.5); Lymphocytes Absolute Auto 1.08 K/mm3 (0.9-3.2); Mean Corpuscular HGB Conc 32.4 g/dl (32-36); Mean Corpuscular Hemoglobin 32.9 pg (26-34); Mean Corpuscular Volume 101.7 fl (80-100); Nucleated Red Blood Cells Absolute Auto 0.000 K/mm3 (0.0-0.012); Nucleated Red Blood Cells Perc 0.0 % (0.0-0.2); Platelet Count Result 180 k/mm3 (150-375); Red Blood Count 4.01 M/mm3 (4.6-6.20); White Blood Count 4.6 K/mm3 (4.5-10.0)
[2025-11-12 06:28] LABS: Alanine Aminotransferase 26 U/L (6-50); Albumin Level 3.2 g/dL (3.5-5.1); Alkaline Phosphatase 58 U/L (38-126); Anion Gap -1 mmol/L (4-12); Aspartate Amino Transferase 44 U/L (17-59); Bilirubin,Total 0.6 mg/dL (0.2-1.3); Blood Urea Nitrogen 22 mg/dL (9-20); Calcium 8.9 mg/dL (8.4-10.2); Carbon Dioxide 34 mmol/L (22-30); Chloride 102 mmol/L (98-107); Estimated CRCL calculation 99 ml/min; Estimated Glomerular Filt Rate > 60; Glucose 109 mg/dL (65-110); Magnesium 2.1 mg/dL (1.6-2.3); Potassium 3.9 mmol/L (3.4-5.0); Sodium 135 mmol/L (137-145); Total Protein 6.1 g/dL (6.3-8.2)
[2025-11-12] MEDS: ENOXAPARIN 40 MG/0.4 ML SYRINGE SUB-Q (10:02)
[2025-11-12 10:03] VITALS: PULSE 108
[2025-11-12] MEDS: METOPROLOL TARTRATE 25 MG TABLET FEED TUBE (10:03)
[2025-11-12] MEDS: ATORVASTATIN 40 MG TABLET FEED TUBE (10:03)
[2025-11-12] MEDS: ACETAMINOPHEN 325 MG TABLET 650 MG FEED TUBE (10:05)
[2025-11-12] MEDS: PANTOPRAZOLE SODIUM IV 40 MG VIAL IV PUSH (10:05)
--- NOTE | 2025-11-12 11:12 | PM.DS ---
DS: Admitting Diagnosis Discharge Date 11/12/2025 Admitting Diagnosis COVID/dysphagia DS: Discharge Diagnosis Discharge Diagnosis (1) COVID: Code(s): U07.1 - COVID-19 Status: Acute (2) Pneumonia: Qualifiers: Pneumonia type: due to COVID-19 virus Qualified Code(s): U07.1 - COVID-19; J12.82 - Pneumonia due to coronavirus disease 2019 Code(s): J18.9 - Pneumonia, unspecified organism Status: Acute (3) MATT (acute kidney injury): Code(s): N17.9 - Acute kidney failure, unspecified Status: Acute (4) Elevated glucose: Code(s): R73.09 - Other abnormal glucose Status: Acute (5) Parkinson disease: Qualifiers: Dyskinesia presence: unspecified whether dyskinesia Fluctuating manifestations: unspecified whether manifestations fluctuate Qualified Code(s): G20.A1 - Parkinson's disease without dyskinesia, without mention of fluctuations Code(s): G20.A1 - Parkinson's disease without dyskinesia, without mention of fluctuations Status: Chronic (6) HTN (hypertension): Qualifiers: Hypertension type: primary hypertension Qualified Code(s): I10 - Essential (primary) hypertension Code(s): I10 - Essential (primary) hypertension Status: Chronic (7) Dysphagia: Code(s): R13.10 - Dysphagia, unspecified Status: Acute DS: Summary Hospital Course Hospital Course: # COVID: - symptom onset: 10/25 - tested positive for COVID on: 10/26 - CXR Showed Right lung infiltrates - repeat CXR this morning showed worsening bilateral opacities, CT chest revered - Monitor cultures, MRSA negative -complete Levaquin, Flagyl, Remdesivir and Dexamethasone S/p Vanc and Tolicizumab pulmonology was consulted during hospital stay # Acute respiratory failure requiring Airvo initially down to room air by the time of discharge. # Pneumonia: Gradually improving, continue current treatment. # MATT (acute kidney injury): Creatinine 1.43, BUN 51, GFR 48 upon admission on 10/26. No previous history of renal disease or CKD. - renal ultrasound resolved. Cr 1.05 from 1.43 monitor # Elevated glucose: Elevated glucose upon admission on 10/26, blood sugar 121. No A1c on file. A1c 5.5, no diabetes # Parkinson disease: History of Parkinson's disease. - continue carbidopa levodopa # HTN (hypertension): - continue home medications - monitor # Dysphagia: Status post PEG tube placement 11/02/2025 Tube feeds restarted Arrangements for tube feeds # Constipation. Added Dulcolax and senna currently on MiraLax KUB with fecal impaction noted. Enema and suppository p.r.n. ordered. Received Mom 11/10/2025. Bowel movement started # Disposition: Discharge to rehab today Diet: G-tube feeding DVT Prophylaxis: Lovenox Lines/Tubes: pIV Code Status: full code Time Spent with Patient Time attestation: Total time spent providing and/or coordinating discharge services: 40 minutes DS: Data Data Completed and Pending Labs on day of discharge: Labs from last 24 hours 11/12/25 11/12/25 11/11/25 06:57 05:46 23:54 WBC 4.6 RBC 4.01 L Hgb 13.2 L Hct 40.8 L MCV 101.7 H MCH 32.9 MCHC 32.4 RDW 13.4 Plt Count 180 MPV 10.5 H Immature Gran % (Auto) 0.9 H Neut % (Auto) 56.1 Lymph % (Auto) 23.4 [place] % (Auto) 15.4 H Eos % (Auto) 3.5 Baso % (Auto) 0.7 Lymph # (Auto) 1.08 [place] # (Auto) 0.7 H Eos # (Auto) 0.2 Baso # (Auto) 0.0 Abs Immat Gran (auto) 0.04 H Absolute Neuts (auto) 2.6 Absolute Nucleated RBC 0.000 Nucleated RBC % 0.0 Sodium 135 L Potassium 3.9 Chloride 102 Carbon Dioxide 34 H Anion Gap -1 L BUN 22 H Creatinine 0.60 L Estim Creat Clear Calc 99 Estimated GFR > 60 Glucose 109 POC Capillary Glucose 103 117 H Calcium 8.9 Magnesium 2.1 Total Bilirubin 0.6 AST 44 ALT 26 Alkaline Phosphatase 58 Total Protein 6.1 L Albumin 3.2 L Urine Color Urine Appearance Urine pH Ur Specific [place] Urine Protein Urine Glucose (UA) Urine Ketones Ur Blood (Man) Urine Nitrate Urine Bilirubin Urine Urobilinogen Ur Leukocyte Esterase Leukocyte Esterase Rfl Urine RBC Urine WBC Ur Squamous Epith Cells Urine Bacteria Urine Casts 11/11/25 11/11/25 11/11/25 21:33 16:53 11:40 WBC RBC Hgb Hct MCV MCH MCHC RDW Plt Count MPV Immature Gran % (Auto) Neut % (Auto) Lymph % (Auto) [place] % (Auto) Eos % (Auto) Baso % (Auto) Lymph # (Auto) [place] # (Auto) Eos # (Auto) Baso # (Auto) Abs Immat Gran (auto) Absolute Neuts (auto) Absolute Nucleated RBC Nucleated RBC % Sodium Potassium Chloride Carbon Dioxide Anion Gap BUN Creatinine Estim Creat Clear Calc Estimated GFR Glucose POC Capillary Glucose 90 123 H Calcium Magnesium Total Bilirubin AST ALT Alkaline Phosphatase Total Protein Albumin Urine Color Yellow Urine Appearance Cloudy H Urine pH 7.5 Ur Specific [place] 1.015 Urine Protein Trace Urine Glucose (UA) Negative Urine Ketones Trace H Ur Blood (Man) Negative Urine Nitrate Negative Urine Bilirubin Negative Urine Urobilinogen 1.0 Ur Leukocyte Esterase Negative Leukocyte Esterase Rfl Negative Urine RBC 3-5 H Urine WBC 0-5 Ur Squamous Epith Cells None seen Urine Bacteria None seen Urine Casts 0-2 Imaging Radiologist's impression: ITS Impressions Chest X-Ray 10/26/25 16:46 IMPRESSION: 1. Emphysematous lungs. 2. Suspect infiltrates at the right lung base, likely pneumonia. Please correlate with clinical and lab findings. Chest X-Ray 10/27/25 07:23 IMPRESSION: 1. Worsening scattered bilateral airspace disease, left lung worse. Chest CT 10/27/25 14:23 IMPRESSION: Severe bilateral bronchopneumonia. Follow-up is recommended to assess resolution. Chest CTA 10/28/25 11:20 IMPRESSION: 1. No PE identified given respiratory motion artifact. 2. Large dense bilateral lower lobe airspace disease, consider aspiration. Modified Barium Swallow 10/29/25 11:27 IMPRESSION: No aspiration observed. See speech therapist's note for complete details. Venous Doppler Study 10/29/25 12:50 Impression: Negative for DVT. Modified Barium Swallow 10/30/25 14:15 IMPRESSION: Trace aspiration observed with thin barium. See speech therapist's note for complete evaluation. Modified Barium Swallow 11/01/25 14:42 IMPRESSION: Aspiration observed. Significant residual persisted corresponding to area of the superior most portion of the esophagus. See speech therapist's note for complete evaluation. Tube Placement 11/01/25 15:02 IMPRESSION: Dobbhoff placement as above with no immediate complication. Abdomen X-Ray 11/09/25 15:32 Impression: 1: Fecal impaction of the colon. Discharge Plan Discharge Attending physician on discharge: Cuba Gill Consulting providers: Davon Marcus Discharging Clinician: Cuba Gill Anticipated Discharge Date/Time: 11/12/25 11:15 Patient Disposition: SNF Activity: as tolerated Diet: NPO and tube feeding Discharge Instructions: G-tube routine care Tube feed Jevity 1.5 at 60 mL/hour with flushes 150 mL every 4 hours PT OT to continue to evaluate and treat Patient Instructions: Antibiotic Form Patient Language: Wolof Stand Alone Forms: General Discharge Information, [facility] Discharge Follow-up/Referrals: Jorge Kelly [Other] - 1 Week Discharge Medications: New bisacodyl 10 mg Suppository 10 mg RECTAL QAM PRN (Reason: Constipation) Qty: 30 0RF acetaminophen 325 mg Tablet 650 mg feeding tube Q6H PRN (Reason: Pain Or Fever) Qty: 30 0RF carbidopa-levodopa [Sinemet] 25-100 mg Tablet 3 tablet feeding tube 0600,1100,1600 Qty: 270 0RF levofloxacin 250 mg Tablet 250 mg feeding tube DAILY Qty: 1 0RF sennosides [senna] 8.8 mg/5 mL Syrup 8.8 mg feeding tube Q12HR Qty: 30 0RF docusate sodium 50 mg/5 mL Liquid 50 mg feeding tube Q12HR Qty: 30 0RF cyclobenzaprine 10 mg Tablet 10 mg feeding tube Q6HR PRN (Reason: Muscle Spasm) Qty: 30 0RF atorvastatin 40 mg Tablet 40 mg feeding tube DAILY Qty: 30 0RF metoprolol tartrate 25 mg Tablet 25 mg feeding tube DAILY Qty: 30 0RF carbidopa-levodopa [Sinemet] 25-100 mg Tablet 1 tablet feeding tube HS Qty: 30 0RF polyethylene glycol 3350 [Miralax] 17 gram Powder In Packet 17 g feeding tube BID Qty: 60 0RF Discontinued atorvastatin 40 mg tablet 40 mg PO DAILY carbidopa-levodopa 25-100 mg tablet extended release 1 tablet PO HS metoprolol succinate 25 mg tablet extended release 24 hr 25 mg PO DAILY carbidopa-levodopa 25-100 mg tablet 3 tablet PO TID Patient Comments: Takes @ 0600 / 1100 / 1600 solifenacin 5 mg tablet 5 mg PO DAILY mirabegron 25 mg tablet extended release 24 hr 25 mg PO DAILY Date of admission: 10/27/25 10:03 Primary Care Provider: Jorge Kelly Admitting Provider: Nancy Henriquez Attending physician on admission: Nancy Henriquez Condition: Improved
== END 2025-11-12 12:46 | DRG 177 ==
LOC: ANHED 19:30 → ANH3MEDSUR 10-27 00:41 → ANHIMU 10-27 05:21 → ANH3MED 11-01 21:52
PROVIDERS: Emergency Medicine; General Practice; Internal Medicine; Internal Medicine Gastroenterology; Internal Medicine Pulmonary Disease; Nurse Practitioner; Student in an Organized Health Care Education/Training Program; Admitting Provider Internal Medicine; Visit Provider Internal Medicine
PROC: 0DP08DZ Removal of Intraluminal Device from Upper Intestinal Tract, Via Natural or Artificial Opening Endoscopic (ICD-10-PCS; CPT 43247; principal; 2025-11-02 15:15)
DX: U07.1 COVID-19 (principal); J12.82 Pneumonia due to coronavirus disease 2019; J96.01 Acute respiratory failure with hypoxia; N17.9 Acute kidney failure, unspecified; E46 Unspecified protein-calorie malnutrition; T17.990A Other foreign object in respiratory tract, part unspecified in causing asphyxiation, initial encounter; G20.A1 Parkinson's disease without dyskinesia, without mention of fluctuations; I10 Essential (primary) hypertension; R73.09 Other abnormal glucose; R13.10 Dysphagia, unspecified; N39.41 Urge incontinence; K59.00 Constipation, unspecified; Z68.23 Body mass index [BMI] 23.0-23.9, adult
CPT/HCPCS: 36415; 36600; 43752; 71045; 71046; 71250; 71275; 74018; 74230; 80048; 80053; 80202; 81001; 82248; 82550; 82570; 82728; 82805; 82948; 83036; 83605; 83735; 83880; 84100; 84145; 84156; 84300; 84466; 84478; 84540; 85018; 85025; 85027; 85380; 85610; 85730; 86140; 86738; 87040; 87637; 87641; 92526; 92610; 92611; 93005; 93306; 93970; 94667; 96361; 96365; 96366; 96375; 97110; 97116; 97162; 97165; 97530; 97535; 99285; A9270; C1751; J0248; J0360; J0456; J0690; J0696; J1100; J1171; J1650; J1836; J1956; J2003; J2405; J2470; J2704; J3373; J3480; J7030; J7040; J7050; J7120; J8540; Q0249; Q9967